=== PATIENT | female | born 1960 | race African-American/Black ===

== ENCOUNTER → 2017-07-06 | Outpatient (CLI) | payer SELFPAY ==
--- NOTE | 2017-07-06 16:42 | RADIOLOGY REPORT (SQ) ---
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 The route of agent administration: Intravenous. ADDITIONAL DRUGS AND DOSES: None. TECHNIQUE: Routine delayed images at 3 hours post radionuclide injection acquired of the bony skelet on including anterior and posterior whole-body projections and additional focused images as needed. LIMITATIONS: None. FINDINGS: BONES: Normal visualization without areas of photopenia or increased bony uptake of radiop harmaceutical. KIDNEYS: Symmetric excretion without obstruction. OTHER: No other significant finding. IMPRESSION: No significant skeletal abnormalities were identified. No evidence for bony metastatic disease. COMMENT: Quality measure 147: TECHNICAL DOCUMENTATION: JOB ID: [id number] [employer]- All Rights Reserved
== END ==
LOC: RAD 10:31
PROVIDERS: ATTEND Internal Medicine Hematology & Oncology
DX: C50.011 Malignant neoplasm of nipple and areola, right female breast (principal)
CPT/HCPCS: 78306; A9561; Q9969

== ENCOUNTER → 2017-07-11 | Outpatient (CLI) | payer SELFPAY ==
--- NOTE | 2017-07-11 10:48 | RADIOLOGY REPORT (SQ) ---
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 TECHNIQUE: CT scan of the chest performed using helical scanning technique with dynamic intravenous contrast injection. Images reviewed with lung, soft tissue and bone windows. Reconstructed coronal and sagittal MPR images reviewed. All images stored on PACS. All CT scanners at this facility use dose modulation, iterative reconstruction, and/or weight based d osing when appropriate to reduce radiation dose to as low as reasonably achievable (ALARA). [facility]: Dose Right [facility]: CareDose [facility]: Dose Right [facility]: Teradose 4D [facility]: [employer] CONTRAST TYPE AND DOSE: 100 cc Isovue 370- low osmolar. RENAL FUNCTION: Creatinine 1.0 RADIATION DOSE: . LIMITATIONS: None. FINDINGS: LUNGS AND PLEURA: A small calcified granuloma is seen the left lung posterolaterally on im age 44. HILAR AND MEDIASTINAL STRUCTURES: No identified masses or abnormal nodes. HEART AND VASCULAR STRUCTURES: No aneurysm or dissection. No central pulmonary emboli. No pericardi al effusion. HARDWARE: None in the chest. UPPER ABDOMEN: See separate report of the CT of the abdomen. THYROID AND OTHER SOFT TISSUES: No masses. No adenopathy. BONES: No significant finding. OTHER: There is marked thickening of scan in the anterior right breast. This is in the areolar area. IMPRESSION: Breast changes. No evidence of metastatic disease thorax. TECHNICAL DOCUMENTATION: JOB ID: [id number] Quality ID # 436: Final reports with documentation of one or more dose reduction techniques (e.g., Au tomated exposure control, adjustment of the mA and/or kV according to patient size, use of iterative reconstruction technique) 2010 [employer]- All Rights Reserved
--- NOTE | 2017-07-11 11:02 | RADIOLOGY REPORT (SQ) ---
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 TECHNIQUE: CT scan of the abdomen and pelvis performed using helical scanning technique with dynamic intravenous contrast injection. Oral contrast. Images reviewed with lung, soft tissue, and bone win dows. Reconstructed coronal and sagittal MPR images reviewed. Delayed images for evaluation of the ur inary system also acquired. All images stored on PACS. All CT scanners at this facility use dose modulation, iterative reconstruction, and/or weight based d osing when appropriate to reduce radiation dose to as low as reasonably achievable (ALARA). [facility]: Dose Right [facility]: CareDose [facility]: Dose Right [facility]: Teradose 4D [facility]: [employer] CONTRAST TYPE AND DOSE: contrast/concentration: Isovue 370.00 mg/ml; Total Contrast Delivered: 100.0 ml; Total Saline Delivered: 72.0 ml RENAL FUNCTION: Creatinine 1.0 RADIATION DOSE: CT Rad equipment meets quality standard of care and radiation dose reduction techniq ues were employed. CTDIvol: 9.5 - 19.7 mGy. DLP: 2283 mGy-cm.. LIMITATIONS: None. FINDINGS: LOWER CHEST: See separate report of the CT of the chest. LIVER: Normal size. No masses. No dilated ducts. SPLEEN: Normal size. No focal lesions. PANCREAS: No masses. No significant calcifications. No adjacent inflammation or peripancreatic fluid collections. Pancreatic duct not dilated. GALLBLADDER: There is a least 1 low-density gallstone suggestive of cholesterol stone. ADRENAL GLANDS: No significant masses or asymmetry. RIGHT KIDNEY AND URETER: No solid masses. No significant calcifications. No hydronephrosis or hyd roureter. LEFT KIDNEY AND URETER: No solid masses. No significant calcifications. No hydronephrosis or hydr oureter. AORTA AND VESSELS: No aneurysm. No dissection. Renal arteries, SMA, celiac without stenosis. RETROPERITONEUM: No retroperitoneal adenopathy, hemorrhage or masses. BOWEL AND PERITONEAL CAVITY: No masses or inflammatory changes. No free fluid or peritoneal masses. APPENDIX: Normal. PELVIS: There is an enlarged heterogeneous uterus. ABDOMINAL WALL: No masses. No hernias. BONES: No significant or acute findings. OTHER: No other significant finding. IMPRESSION: 1. Cholelithiasis as described. 2. There appear to be multiple uterine fibroids. 3. No abdominal or pelvic metastases are seen. TECHNICAL DOCUMENTATION: JOB ID: [id number] Quality ID # 436: Final reports with documentation of one or more dose reduction techniques (e.g., Au tomated exposure control, adjustment of the mA and/or kV according to patient size, use of iterative reconstruction technique) 2010 [employer]- All Rights Reserved
--- NOTE | 2017-07-11 15:05 | RADIOLOGY REPORT (SQ) ---
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 The route of agent administration: Intravenous TECHNIQUE: Following administration of the radionuclide, gated images of the heart are obtained in t hree projections. Left ventricular functional analysis performed. LIMITATIONS: None. FINDINGS: LEFT VENTRICULAR FUNCTION: EJECTION FRACTION: Left ventricular ejection fraction 62%. END-DIASTOLIC VOLUME: 105 mL. END-SYSTOLIC VOLUME: 55 mL. WALL MOTION: No focal wall motion abnormalities. OTHER: No other significant finding. IMPRESSION: Left ventricular ejection fraction estimated at 62% TECHNICAL DOCUMENTATION: JOB ID: [id number] [employer]- All Rights Reserved
== END ==
LOC: RAD 09:00
PROVIDERS: ATTEND Internal Medicine Hematology & Oncology
DX: C50.011 Malignant neoplasm of nipple and areola, right female breast (principal); R06.02 Shortness of breath; K80.20 Calculus of gallbladder without cholecystitis without obstruction
CPT/HCPCS: 82565; 78472; 71260; 74177; A9560; Q9969

== ENCOUNTER 2017-07-18 13:05 | Day surgery (SDC) | payer MEDICAID ==
[~2017-07-18 13:05] MED LIST: ACETAMINOPHEN 325 MG TABLET PO PRN; BUPIVACAINE HCL 0.5%-EPI 1:200000 INJ/PF 30 ML VIAL ONE; CEFAZOLIN 1 GM/D5W RTU 1 GM/50 ML RTUPB IV PRN
[2017-07-18 14:22] LABS: HEMATOCRIT 36.2 % (36.0-47.0); HEMOGLOBIN 12.1 g/dL (12.0-15.5); HGB HCT DIFFERENCE 0.1; MEAN CORPUSCULAR HEMOGLOBIN 25.7 pg (27.0-33.4); MEAN CORPUSCULAR HGB CONC 33.5 g/dL (32.0-36.0); MEAN CORPUSCULAR VOLUME 77 fl (80-97); RED BLOOD COUNT 4.71 10^6/uL (3.72-5.28); RED CELL DISTRIBUTION WIDTH 12.9 % (11.5-14.0); WHITE BLOOD COUNT 10.5 10^3/uL (4.0-10.5)
[2017-07-18] MEDS ORDERED: PROPOFOL INJ 200 MG/20 ML VIAL IV ONE (14:43)
[2017-07-18] MEDS ORDERED: MIDAZOLAM 2 MG/2 ML INJ ONE (14:43)
[2017-07-18] MEDS ORDERED: LIDOCAINE 2% INJ-PF (20 MG/ML) 10 ML AMPUL ONE (14:43)
[2017-07-18] MEDS ORDERED: FENTANYL CITRATE INJ/PF 100 MCG/2 ML AMPUL ONE (14:43)
[2017-07-18] MEDS ORDERED: MEPERIDINE HCL/PF INJ 25 MG/1 ML DISP.SYRIN IV PRN (15:40)
[2017-07-18] MEDS ORDERED: DIPHENHYDRAMINE HCL 50 MG/ML VIAL IV PRN (15:40)
[2017-07-18] MEDS ORDERED: PROMETHAZINE HCL INJ 25 MG/1 ML VIAL IV PRN (15:40)
[2017-07-18] MEDS ORDERED: ONDANSETRON HCL INJ/PF 4 MG/2 ML SDV IV PRN (15:40)
[2017-07-18] MEDS ORDERED: FENTANYL CITRATE INJ/PF 100 MCG/2 ML AMPUL IV PRN ×2 (15:40)
--- NOTE | 2017-07-18 16:23 | PDOC DISCHARGE SUMMARY ---
Discharge Summary (SDC) - Discharge Final Diagnosis: Port a Cath placed for right Breast Cancer Date of Surgery: 07/18/17 Discharge Date: 07/18/17 Condition: Stable Treatment or Instructions: Wound Care: Leave clear dressing and paper bandaids (steri strips) intact. You may remove the clear outer dressing (tegaderm) before chemo. Leave steri strips intact beneath. You may shower/get the area wet in 48 hours. Leave tegaderm and steri strips intact. Do not scrub area. Warm water/soap may wash over area, pat dry. Medication: You may take Toradol 10mg one pill every six hours as needed for pain. Follow up: Return to clinic in two weeks for wound evaluation. Call clinic if you experience unusual pain, swelling, bleeding, neck swelling. Call clinic with any questions or concerns. [facility]: [phone] Prescriptions: Ketorolac Tromethamine [Toradol 10 mg Tablet] 10 mg PO Q6HP PRN #20 tablet PRN Reason: Referrals: RHIANNON SCHMIDT MD [Primary Care Provider] - Discharge Diet: As Tolerated Discharge Activity: Walk Frequently Report the Following to Your Physician Immediately: Shortness of Breath, Increase in Pain, Fever over 101 Degrees, Swelling, Drainage-Foul Smelling
--- NOTE | 2017-07-18 16:27 | Operative Report ---
Operative Report DATE OF SURGERY: 07/18/17 PREOPERATIVE DIAGNOSIS: Locally advanced right breast carcinoma POSTOPERATIVE DIAGNOSIS: Same OPERATION: 1. Focused ultrasound of the left internal jugular vein. 2. Insertion of single-chamber Ldkxru-f-Pxpp left subclavian position. 3. Interpretation of intraoperative fluoroscopy SURGEON: MAXIMO BROGES 1ST BUILD TECHNICIAN: NOREEN OVALLES ANESTHESIA: LMAC TISSUE REMOVED OR ALTERED: None COMPLICATIONS: None ESTIMATED BLOOD LOSS: Scant INTRAOPERATIVE FINDINGS: See below PROCEDURE: Patient was taken to the main operating room [facility] she is placed in supine position arms tucked left neck and chest wall prepped and draped sterile fashion with Betadine Surgical plan and surgical timeout were conducted. Left neck scanned with the variable frequency linear transducer. Left internal jugular vein was in appropriate configuration and felt suitable for cannulation. Skin was anesthetized 1% plain lidocaine. Micro needle and wire threaded to the left internal jugular vein. Suitable site for placement of the port chamber was selected left subclavian position. Skin was anesthetized 1% plain lidocaine. Approximately 3 and half centimeter incision made with a 15 blade, subcutaneous pocket developed large enough to accommodate a single-chamber port. The catheter was then trimmed the appropriate length total between the 2 incisions attached to the port trimming the catheter at 25 cm. The plastic ring was secured onto the port. The port was tucked into the subcu clavicular pocket. The micro needle was switched over to a conventional 0.030 guidewire uneventfully. The 9 Syriac dilator introducer sheath was then threaded over the guidewire under direct visualization using fluoroscopy as a guide. The dilator and wire removed, catheter threaded into the strip away sheath and the strip away sheath removed uneventfully leaving the catheter in good position with the tip of the proximal superior vena cava. There was no kinking of the catheter was demonstrated by fluoroscopic imaging. The catheter was aspirated and flushed through the hub of the port. Wounds closed with 3-0 Vicryl benzoin Steri-Strips and Tegaderm applied. Patient taught procedure well taken recovery in stable condition. Portable chest x-ray pending at time dictation. The physician client account assistant, Ms. Gordon, provided assistance during this case by: ASSISTING retracting tissue, instillation of local anesthesia and closure of skin incisions.
--- NOTE | 2017-07-18 17:19 | RADIOLOGY REPORT (SQ) ---
EXAM DESCRIPTION: CHEST SINGLE VIEW; NO CHG FLUORO COMPLETED DATE/TIME: 07/18/2017 4:31 pm; 07/18/2017 4:32 pm REASON FOR STUDY: PORTACATH PLACEMENT C50.911 MALIGNANT NEOPLASM OF UNSP SITE OF RIGHT FEMALE FLORENTINO COMPARISON: CT chest 07/11/2017 FLUOROSCOPY TIME: 0.4 minutes 1 digital chest radiographic image saved to PACS. TECHNIQUE: Intra-operative images acquired during surgical procedure to evaluate progress. NUMBER OF IMAGES: 1 digital chest radiographic image LIMITATIONS: None. FINDINGS: Intra procedural imaging and fluoro during placement of a left-sided permanent central jacob e by the surgeons. Please see the operative report for further details IMPRESSION: Intra procedural imaging and fluoro COMMENT: Quality ID 145: Final reports for procedures using fluoroscopy that document radiation exp osure indices, or exposure time and number of fluorographic images (if radiation exposure indices are not available) Please consult full operative report of the attending physician for description of the procedure. TECHNICAL DOCUMENTATION: JOB ID: [id number] [employer]- All Rights Reserved
--- NOTE | 2017-07-18 17:21 | RADIOLOGY REPORT (SQ) ---
EXAM DESCRIPTION: CHEST SINGLE VIEW COMPLETED DATE/TIME: 07/18/2017 4:45 pm REASON FOR STUDY: Port placement COMPARISON: None. EXAM PARAMETERS: NUMBER OF VIEWS: One view. TECHNIQUE: Single frontal radiographic view of the chest acquired. RADIATION DOSE: NA LIMITATIONS: None. FINDINGS: LUNGS AND PLEURA: No opacities, masses or pneumothorax. No pleural effusion. MEDIASTINUM AND HILAR STRUCTURES: No masses. Contour normal. Benign calcified left paratracheal and left hilar lymph nodes likely related to granulomatous disease HEART AND VASCULAR STRUCTURES: Mild to moderate cardiomegaly BONES: No acute findings. HARDWARE: Left-sided permanent central line with the tip in the superior vena cava. OTHER: No other significant finding. IMPRESSION: New left permanent central line with the tip in the superior vena cava. No pneumothorax . TECHNICAL DOCUMENTATION: JOB ID: [id number] [employer]- All Rights Reserved
[2017-07-18 18:13] VITALS: BP 165/80
--- NOTE | 2017-07-18 18:32 | EKG REPORT ---
SEVERITY:- ABNORMAL ECG - SINUS RHYTHM LEFT BUNDLE BRANCH BLOCK : Confirmed by: Praveen Ramos MD 18-Jul-2017 18:31:54
== END 2017-07-18 18:10 | disposition home or self-care (01) ==
LOC: OROUT 13:05
PROVIDERS: ATTEND Surgery
PROC: 05HN33Z Insertion of Infusion Device into Left Internal Jugular Vein, Percutaneous Approach (ICD-10-PCS; principal; 2017-07-18 15:30)
DX: C50.911 Malignant neoplasm of unspecified site of right female breast (principal); I10 Essential (primary) hypertension; Z79.899 Other long term (current) drug therapy
CPT/HCPCS: 36561; 36415; 84132; 85027; 71010; 93005; 93010; C1752; C1788; J2250; J3490 ×2; J0690; J3010; J2704; J1642; 532

== ENCOUNTER 2017-07-20 07:58 | Outpatient (CLI) | payer MEDICAID ==
[2017-07-20] MEDS ORDERED: DOCETAXEL IV PRN (08:00)
[2017-07-20] MEDS ORDERED: NORMAL SALINE IV PRN ×3 (08:00)
[2017-07-20] MEDS ORDERED: DIPHENHYDRAMINE HCL 50 MG in NORMAL SALINE 50 ML IV PRN (08:00)
[2017-07-20] MEDS ORDERED: CARBOPLATIN 750 MG in NORMAL SALINE 250 ML IV PRN (08:00)
[2017-07-20] MEDS ORDERED: ONDANSETRON HCL/PF 16 MG, DEXAMETHASONE SOD PHOSPHATE 20 MG in NORMAL SALINE 50 ML IV PRN (08:00)
[2017-07-20] MEDS ORDERED: NORMAL SALINE 250 ML IV PRN (08:00)
[2017-07-20] MEDS ORDERED: FAMOTIDINE IV PRN (08:00)
[2017-07-20] MEDS ORDERED: PERTUZUMAB 840 MG in NORMAL SALINE 250 ML IV PRN (08:00)
[2017-07-20] MEDS ORDERED: TRASTUZUMAB IV PRN (08:00)
[2017-07-20 08:41] LABS: ABSOLUTE BASOPHILS # (AUTO) 0.1 10^3/uL (0.0-0.2); ABSOLUTE EOSINOPHILS # (AUTO) 0.2 10^3/uL (0.0-0.6); ABSOLUTE LYMPHOCYTES (AUTO) 2.4 10^3/uL (0.5-4.7); ABSOLUTE MONOCYTES (AUTO) 0.7 10^3/uL (0.1-1.4); ABSOLUTE NEUT (AUTO) 6.3 10^3/uL (1.7-8.2); BASOPHILS % (AUTO) 0.6 % (0-2); EOSINOPHILS % (AUTO) 1.9 % (0-6); HEMATOCRIT 36.5 % (36.0-47.0); HEMOGLOBIN 11.9 g/dL (12.0-15.5); LYMPHOCYTES % (AUTO) 24.5 % (13-45); MEAN CORPUSCULAR HGB CONC 32.6 g/dL (32.0-36.0); MEAN CORPUSCULAR VOLUME 77 fl (80-97); MONOCYTES % (AUTO) 6.9 % (3-13); PLATELET COUNT 431 10^3/uL (150-450); RED BLOOD COUNT 4.75 10^6/uL (3.72-5.28); RED CELL DISTRIBUTION WIDTH 13.2 % (11.5-14.0); SEGMENTED NEUTROPHILS % (AUTO) 66.1 % (42-78); TOTAL CELLS COUNTED % (AUTO) 100 %; WHITE BLOOD COUNT 9.6 10^3/uL (4.0-10.5)
[2017-07-20 13:20] VITALS: BP 128/68
== END 2017-07-20 17:09 | disposition home or self-care (01) ==
LOC: II 07:58 → 5TH 07:59 → II 17:09
PROVIDERS: ATTEND Internal Medicine Hematology & Oncology
PROC: 3E0430M Introduction of Antineoplastic, Monoclonal Antibody, into Central Vein, Percutaneous Approach (ICD-10-PCS; principal; 2017-07-20)
PROC: 3E04305 Introduction of Other Antineoplastic into Central Vein, Percutaneous Approach (ICD-10-PCS; 2017-07-20)
PROC: 3E043GC Introduction of Other Therapeutic Substance into Central Vein, Percutaneous Approach (ICD-10-PCS; 2017-07-20)
DX: Z51.11 Encounter for antineoplastic chemotherapy (principal); C50.011 Malignant neoplasm of nipple and areola, right female breast
CPT/HCPCS: 36415; 85025; 96413; 96415; 96367; 96375; J1200; J9045; J9171; J2405; J7050; S0028; J1100; J9306; J9355; 96417

== ENCOUNTER 2017-08-10 10:19 | Outpatient (CLI) | payer MEDICAID ==
[~2017-08-10 10:19] MED LIST changes: -ACETAMINOPHEN 325 MG TABLET PO PRN; -BUPIVACAINE HCL 0.5%-EPI 1:200000 INJ/PF 30 ML VIAL ONE; +CARBOPLATIN 750 MG in NORMAL SALINE 250 ML IV PRN; -CEFAZOLIN 1 GM/D5W RTU 1 GM/50 ML RTUPB IV PRN; +DIPHENHYDRAMINE HCL 50 MG in NORMAL SALINE 50 ML IV PRN; +DOCETAXEL IV PRN; +FAMOTIDINE IV PRN; +NORMAL SALINE 250 ML IV PRN; +NORMAL SALINE IV PRN; +ONDANSETRON HCL/PF 16 MG, DEXAMETHASONE SOD PHOSPHATE 20 MG in NORMAL SALINE 50 ML IV PRN; +PERTUZUMAB 420 MG in NORMAL SALINE 250 ML IV PRN; +TRASTUZUMAB IV PRN
[2017-08-10 10:47] VITALS: BP 136/72
== END 2017-08-10 16:49 | disposition home or self-care (01) ==
LOC: II 10:19 → 5TH 10:20 → II 16:49
PROVIDERS: ATTEND Internal Medicine Hematology & Oncology
PROC: 3E0430M Introduction of Antineoplastic, Monoclonal Antibody, into Central Vein, Percutaneous Approach (ICD-10-PCS; principal; 2017-08-10)
PROC: 3E04305 Introduction of Other Antineoplastic into Central Vein, Percutaneous Approach (ICD-10-PCS; 2017-08-10)
PROC: 3E043GC Introduction of Other Therapeutic Substance into Central Vein, Percutaneous Approach (ICD-10-PCS; 2017-08-10)
DX: Z51.11 Encounter for antineoplastic chemotherapy (principal); C50.011 Malignant neoplasm of nipple and areola, right female breast
CPT/HCPCS: 96413; 96415; 96367; 96375; J1200; J9045; J9171; J2405; J7050; S0028; J1100; J9306; J9355; 96417

== ENCOUNTER → 2017-10-08 | Outpatient (CLI) | payer MEDICAID ==
--- NOTE | 2017-10-08 14:17 | RADIOLOGY REPORT (SQ) ---
EXAM DESCRIPTION: NM MUGA REST COMPLETED DATE/TIME: 10/08/2017 11:54 am REASON FOR STUDY: Z08 ENCNTR FOR FOLLOW-UP EXAM AFTER TRTMT FOR MALIGNANT NEOPLASM C50.011 MA Z08 E NCNTR FOR FOLLOW-UP EXAM AFTER TRTMT FOR MALIGNANT NEOP C50.011 MALIGNANT NEOPLASM OF NIPPLE AND ARE MARYAM, RIGHT FEMAL COMPARISON: 07/11/2017. RADIONUCLIDE AND DOSE: 26.1 mCi technetium 99 M pertechnetate labeled red blood cells. The route of agent administration: Intravenous TECHNIQUE: Following administration of the radionuclide, gated images of the heart are obtained in t hree projections. Left ventricular functional analysis performed. LIMITATIONS: None. FINDINGS: LEFT VENTRICULAR FUNCTION: EJECTION FRACTION: 69%. END-DIASTOLIC VOLUME: 105 mL. END-SYSTOLIC VOLUME: 46 mL. WALL MOTION: No focal wall motion abnormalities. OTHER: No other significant finding. IMPRESSION: NORMAL CARDIAC MUGA STUDY. NORMAL LEFT VENTRICULAR FUNCTION WITH VALUES ABOVE. TECHNICAL DOCUMENTATION: JOB ID: [id number] [employer]- All Rights Reserved Reading location - IP/workstation name: [email or web address]
== END ==
LOC: RAD 10:42
PROVIDERS: ATTEND Physician Assistant Medical
DX: Z08 Encounter for follow-up examination after completed treatment for malignant neoplasm (principal); C50.011 Malignant neoplasm of nipple and areola, right female breast
CPT/HCPCS: 78472; A9560; Q9969

== ENCOUNTER 2017-10-26 21:28 | Emergency (ER) | payer MEDICAID ==
[2017-10-26] MEDS ORDERED: NORMAL SALINE 250 ML IV PRN (23:06)
--- NOTE | 2017-10-26 23:09 | ER Document Report ---
ED General - General Chief Complaint: Shortness Of Breath Stated Complaint: ABNORMAL LABS Time Seen by Provider: 10/26/17 22:59 Notes: Patient is a very pleasant 57-year-old female presents with some difficulty breathing. Patient was recently told that she was anemic with a hemoglobin 6.6. She was told if she is having symptoms were to come to the ER. Today she is having symptoms and therefore come to the ER. She has a history of breast cancer. She is on chemotherapy which is causing her to become anemic. She has had no blood in her stool. No black tarry stools. No vomiting. No bleeding from anywhere that she is aware of. No abdominal pain. No chest pain. She said she is short of breath more with exertion. She said since arriving here in shortness of breath is improved. She is not a smoker. No history of asthma. No recent fevers. No other complaints at this time. She says her hemoglobin has been downtrending over the last 12 weeks. She gets chemotherapy every 3 weeks. She says one time she was also short of breath due to low magnesium. Is followed by . TRAVEL OUTSIDE OF THE [place] IN LAST 30 DAYS: No - Related Data Allergies/Adverse Reactions: No Known Allergies Allergy (Verified 07/18/17 14:02) Past Medical History - Social History Smoking Status: Never Smoker Frequency of alcohol use: None Drug Abuse: None Family History: Reviewed & Not Pertinent - Past Medical History Cardiac Medical History: Reports: Hx Hypertension - ON MEDS Denies: Hx Coronary Artery Disease, Hx Heart Attack Pulmonary Medical History: Denies: Hx Asthma, Hx Bronchitis, Hx COPD, Hx Pneumonia Neurological Medical History: Denies: Hx Cerebrovascular Accident, Hx Seizures Renal/ Medical History: Denies: Hx Peritoneal Dialysis Musculoskeltal Medical History: Denies Hx Arthritis Past Surgical History: Reports: Hx Breast Surgery - benign tumors removed x3 from the left breast - Immunizations Hx Diphtheria, Pertussis, Tetanus Vaccination: No Review of Systems - Review of Systems Notes: My Normal Review Basic REVIEW OF SYSTEMS: CONSTITUTIONAL : Denies fever, chills, or sweats. Denies recent illness. EENT: Denies eye, ear, throat, or mouth pain or symptoms. Denies nasal or sinus congestion. CARDIOVASCULAR: Denies chest pain. RESPIRATORY: Some shortness of breath. GASTROINTESTINAL: Denies abdominal pain. Denies nausea, vomiting, or diarrhea. Denies constipation. Last BM: MUSCULOSKELETAL: Denies neck or back pain or joint pain or swelling. SKIN: Denies rash or skin lesions. HEMATOLOGIC : On chemotherapy NEUROLOGICAL: Denies altered mental status or loss of consciousness. Denies headache. Denies weakness or paralysis or loss of use of either side. Denies problems with gait or speech. Denies sensory or motor loss. ALL OTHER SYSTEMS REVIEWED AND NEGATIVE. Physical Exam - Vital signs Vitals: Temp Pulse Resp BP Pulse Ox 98.7 F 77 16 150/68 H 99 10/26/17 21:48 10/26/17 21:48 10/26/17 21:48 10/26/17 21:48 10/26/17 21:48 - Notes Notes: General Appearance: Well nourished, alert, cooperative, no acute distress, no obvious discomfort. Well-appearing. Vitals: reviewed, See vital signs table. Head: no swelling or tenderness to the head Eyes: PERRL, EOMI, Conjuctiva clear Lungs: No wheezing, No rales, No rhonci, No accessory muscle use, good air exchange bilaterally. Heart: Normal rate, Regular rythm, No murmur, no rub Abdomen: Normal BS, soft, No rigidity, No abdominal tenderness, No guarding, no rebound, no abdominal masses, no organomegaly Extremities: strength 5/5 in all extremities, good pulses in all extremities, no swelling or tenderness in the extremities, no edema. Skin: warm, dry, appropriate color, no rash Neuro: speech clear, oriented x 3, normal affect, responds appropriately to questions. Course - Re-evaluation Re-evalutation: 10/27/17 00:40 Patient's hemoglobin came back in the sevens. We will therefore just give her 1 unit of blood. I did call blood bank and make him aware that we just need 1 unit of blood thawed. 10/27/17 04:58 She looks and feels improved after receiving the blood. She was also significantly hypomagnesmic. I therefore gave her 2 g of magnesium. She also had some hypokalemia and therefore gave her potassium. She will be discharged home with prescriptions for supplemental potassium and magnesium. She is to follow-up with Dr. Grace on Sunday for reevaluation and recheck her labs. Patient encouraged to return to ER if she has difficulty breathing, fevers, or feels unwell. Patient agrees with plan will be discharged home. Dictation of this chart was performed using voice recognition software; therefore, there may be some unintended grammatical errors. - Vital Signs Vital signs: Temp Pulse Resp BP Pulse Ox 99.0 F 76 17 147/72 H 100 10/27/17 04:15 10/27/17 04:20 10/27/17 04:20 10/27/17 04:16 10/27/17 04:20 - Laboratory Result Diagrams: 10/26/17 23:00 10/26/17 23:00 Laboratory results interpreted by me: 10/26/17 10/26/17 10/26/17 23:00 23:00 23:40 WBC 13.6 H RBC 2.65 L Hgb 7.3 L Hct 22.3 L RDW 19.8 H Absolute Neutrophils 8.8 H Potassium 3.0 L* Chloride 108 H Est GFR ( Amer) 59 L Est GFR (Non-Af Amer) 49 L Glucose 120 H Magnesium 1.1 L* Urine Blood Ur Leukocyte Esterase Crossmatch See Detail 10/27/17 01:45 WBC RBC Hgb Hct RDW Absolute Neutrophils Potassium Chloride Est GFR ( Amer) Est GFR (Non-Af Amer) Glucose Magnesium Urine Blood SMALL H Ur Leukocyte Esterase SMALL H Crossmatch - EKG Interpretation by Me Additional EKG results interpreted by me: 10/27/17 00:41 EKG is reviewed and interpreted by me. EKG shows sinus rhythm with rate of 66 bpm. She does have a left bundle branch block which is unchanged comparison to her previous EKG from July 18, 2017. No concerning ST segment changes. MA interval and QTc intervals are within normal range. QRS duration is prolonged. Discharge - Discharge Clinical Impression: Hypokalemia, Hypomagnesemia Anemia Qualifiers: Anemia type: unspecified type Qualified Code(s): D64.9 - Anemia, unspecified Condition: Good Disposition: HOME, SELF-CARE Additional Instructions: Please follow up with Dr. Ortega on Sunday for reevaluation and recheck of your hemoglobin, potassium, and magnesium. Please return to the ER if you have worsening difficulty breathing, fevers, or feel unwell. Prescriptions: Magnesium Oxide 400 mg PO DAILY #15 tablet Potassium Chloride 10 ml PO DAILY #150 ml
[2017-10-26 23:16] LABS: VENOUS BLOOD BASE EXCESS -2.2 mmol/L; VENOUS BLOOD HCO3 23.3 mmol/L (20-32); VENOUS BLOOD PH 7.35 (7.30-7.42)
[2017-10-26 23:23] LABS: ABSOLUTE LYMPHOCYTES (AUTO) 3.4 10^3/uL (0.5-4.7); ABSOLUTE MONOCYTES (AUTO) 1.4 10^3/uL (0.1-1.4); ABSOLUTE NEUT (AUTO) 8.8 10^3/uL (1.7-8.2); BASOPHILS % (AUTO) 0.1 % (0-2); HEMATOCRIT 22.3 % (36.0-47.0); LYMPHOCYTES % (AUTO) 24.9 % (13-45); MEAN CORPUSCULAR HEMOGLOBIN 27.7 pg (27.0-33.4); MEAN CORPUSCULAR HGB CONC 32.9 g/dL (32.0-36.0); MEAN CORPUSCULAR VOLUME 84 fl (80-97); MONOCYTES % (AUTO) 10.3 % (3-13); PLATELET COUNT 185 10^3/uL (150-450); RED BLOOD COUNT 2.65 10^6/uL (3.72-5.28); RED CELL DISTRIBUTION WIDTH 19.8 % (11.5-14.0); SEGMENTED NEUTROPHILS % (AUTO) 64.7 % (42-78); TOTAL CELLS COUNTED % (AUTO) 100 %; WHITE BLOOD COUNT 13.6 10^3/uL (4.0-10.5)
[2017-10-26 23:25] LABS: HEMOGLOBIN 7.3 g/dL (12.0-15.5)
[2017-10-26 23:29] LABS: INTERNATIONAL RATION (INR) 1.01
[2017-10-26 23:32] LABS: ALANINE AMINOTRANSFERASE 34 U/L (9-52); ALBUMIN 4.1 g/dL (3.5-5.0); ALKALINE PHOSPHATASE 84 U/L (38-126); ANION GAP 13 (5-19); ASPARTATE AMINO TRANSFERASE 23 U/L (14-36); BILIRUBIN,DIRECT 0.1 mg/dL (0.0-0.4); BILIRUBIN,TOTAL 0.2 mg/dL (0.2-1.3); BLOOD UREA NITROGEN 15 mg/dL (7-20); CALCIUM 8.7 mg/dL (8.4-10.2); CARBON DIOXIDE 23 mmol/L (22-30); CHLORIDE 108 mmol/L (98-107); GLUCOSE 120 mg/dL (75-110); TOTAL PROTEIN 6.9 g/dL (6.3-8.2)
[2017-10-27 02:31] LABS: APPEARANCE,URINE CLEAR; COLOR,URINE YELLOW
[2017-10-27 02:32] LABS: BILIRUBIN,URINE NEGATIVE (NEGATIVE); GLUCOSE, URINE NEGATIVE (NEGATIVE); KETONES,URINE NEGATIVE (NEGATIVE); LEUKOCYTE ESTERASE,URINE SMALL (NEGATIVE); NITRITE,URINE NEGATIVE (NEGATIVE); PROTEIN,URINE NEGATIVE (NEGATIVE); URINE SPECIFIC GRAVITY 1.015; UROBILINOGEN,URINE NEGATIVE mg/dL (<2.0)
[2017-10-27] MEDS ORDERED: POTASSIUM CHLORIDE 10 MEQ TABLET.SA PO ONE (03:19)
--- NOTE | 2017-10-27 03:23 | RADIOLOGY REPORT (SQ) ---
EXAM DESCRIPTION: CHEST SINGLE VIEW CLINICAL HISTORY: 57 years Female, dyspnea COMPARISON: 12.20.17 NUMBER OF VIEWS/TECHNIQUE: 1/AP LIMITATIONS: None. FINDINGS: Normal lung volume, clear parenchyma, normal cardiac silhouette, and intact bony thorax. Left jugular miniport central line tip at the SVC. IMPRESSION: No acute cardiopulmonary findings.
[2017-10-27] MEDS ORDERED: MAGNESIUM SULFATE/D5W 1 GM/100 ML RTUPB IV SCH (03:30)
[2017-10-27 05:50] VITALS: BP 140/67
--- NOTE | 2017-10-27 10:20 | EKG REPORT ---
SEVERITY:- ABNORMAL ECG - SINUS RHYTHM LEFT BUNDLE BRANCH BLOCK : Confirmed by: Praveen Ramos MD 27-Oct-2017 10:19:40
== END 2017-10-27 05:55 | disposition home or self-care (01) ==
LOC: ER 21:28
DX: E87.6 Hypokalemia (principal); E83.42 Hypomagnesemia; D64.9 Anemia, unspecified; R06.02 Shortness of breath; Z85.3 Personal history of malignant neoplasm of breast; Z79.899 Other long term (current) drug therapy; I10 Essential (primary) hypertension
CPT/HCPCS: 93005; 36591; 99285; 86900; 86901; 36415; 87086; 36430; 86850; 83735; 85025; 85610; 80053; 81001; 86920; 82803; 71045; 93010; P9016; J3475

== ENCOUNTER 2017-12-19 06:52 | Day surgery (SDC) | payer MEDICAID ==
[2017-12-12 11:05] LABS: HEMATOCRIT 26.2 % (36.0-47.0); HEMOGLOBIN 8.6 g/dL (12.0-15.5); MEAN CORPUSCULAR HEMOGLOBIN 28.5 pg (27.0-33.4); MEAN CORPUSCULAR HGB CONC 32.8 g/dL (32.0-36.0); MEAN CORPUSCULAR VOLUME 87 fl (80-97); PLATELET COUNT 375 10^3/uL (150-450); RED BLOOD COUNT 3.02 10^6/uL (3.72-5.28); RED CELL DISTRIBUTION WIDTH 15.6 % (11.5-14.0); WHITE BLOOD COUNT 9.6 10^3/uL (4.0-10.5)
[2017-12-12 11:46] LABS: ANION GAP 10 (5-19); BLOOD UREA NITROGEN 21 mg/dL (7-20); CALCIUM 9.7 mg/dL (8.4-10.2); CARBON DIOXIDE 28 mmol/L (22-30); CHLORIDE 105 mmol/L (98-107); GLUCOSE 98 mg/dL (75-110); POTASSIUM 4.5 mmol/L (3.6-5.0); SODIUM 143.2 mmol/L (137-145)
[~2017-12-19 06:52] MED LIST changes: -CARBOPLATIN 750 MG in NORMAL SALINE 250 ML IV PRN; +CEFAZOLIN 1 GM/D5W RTU 1 GM/50 ML RTUPB IV PRN; -DIPHENHYDRAMINE HCL 50 MG in NORMAL SALINE 50 ML IV PRN; -DOCETAXEL IV PRN; -FAMOTIDINE IV PRN; +LACTATED RINGERS 1000 ML IV PRN; +LIDOCAINE 0.5% INJ-PF (5 MG/ML) 50 ML SDV SUBCUT PRN; +LIDOCAINE 1%/EPINEPHRINE INJ 20 ML VIAL ONE; +MICROFIBRILLAR COLLAGEN 1 GM PACK ONE; -NORMAL SALINE 250 ML IV PRN; -NORMAL SALINE IV PRN; -ONDANSETRON HCL/PF 16 MG, DEXAMETHASONE SOD PHOSPHATE 20 MG in NORMAL SALINE 50 ML IV PRN; -PERTUZUMAB 420 MG in NORMAL SALINE 250 ML IV PRN; -TRASTUZUMAB IV PRN
[2017-12-19 07:26] LABS: HEMOGLOBIN 9.2 g/dL (12.0-15.5); MEAN CORPUSCULAR HEMOGLOBIN 28.3 pg (27.0-33.4); MEAN CORPUSCULAR VOLUME 86 fl (80-97); PLATELET COUNT 405 10^3/uL (150-450); RED BLOOD COUNT 3.26 10^6/uL (3.72-5.28); RED CELL DISTRIBUTION WIDTH 15.6 % (11.5-14.0); WHITE BLOOD COUNT 8.9 10^3/uL (4.0-10.5)
[2017-12-19] MEDS ORDERED: DEXAMETHASONE SOD PHOSPHATE INJ 4 MG/1 ML VIAL ONE (08:49)
[2017-12-19] MEDS ORDERED: KETOROLAC TROMETHAMINE 60 MG/2 ML SDV ONE (08:49)
[2017-12-19] MEDS ORDERED: ONDANSETRON HCL INJ/PF 4 MG/2 ML SDV ONE (08:49)
[2017-12-19] MEDS ORDERED: SUCCINYLCHOLINE CHLORIDE INJ 200 MG/10 ML VIAL ONE (08:49)
[2017-12-19] MEDS ORDERED: FENTANYL CITRATE INJ/PF 250 MCG/5 ML AMPULE ONE (09:02)
[2017-12-19] MEDS ORDERED: PROPOFOL INJ 200 MG/20 ML VIAL IV ONE (09:02)
[2017-12-19] MEDS ORDERED: MIDAZOLAM 2 MG/2 ML INJ ONE (09:02)
[2017-12-19] MEDS ORDERED: ACETAMINOPHEN 100 ML IV ONE (09:03)
[2017-12-19] MEDS ORDERED: OXYCODONE-ACETAMINOPHEN 5-325 MG TABLET PO PRN ×2 (09:32)
[2017-12-19] MEDS ORDERED: FENTANYL CITRATE INJ/PF 100 MCG/2 ML AMPUL IV PRN ×3 (09:32)
[2017-12-19] MEDS ORDERED: PROMETHAZINE HCL INJ 25 MG/1 ML VIAL IV PRN ×2 (09:32)
[2017-12-19] MEDS ORDERED: MEPERIDINE HCL/PF INJ 25 MG/1 ML DISP.SYRIN IV PRN (09:32)
[2017-12-19] MEDS ORDERED: DIPHENHYDRAMINE HCL 50 MG/ML VIAL IV PRN (09:32)
--- NOTE | 2017-12-19 11:26 | Operative Report ---
Operative Report DATE OF SURGERY: 12/19/17 PREOPERATIVE DIAGNOSIS: 1. Locally advanced inflammatory breast carcinoma. 2. Status post neoadjuvant chemotherapy POSTOPERATIVE DIAGNOSIS: Same OPERATION: 1. Right modified radical mastectomy. 2. Drainage of right chest wall SURGEON: MAXIMO BORGES 1ST MACHINE PACKER: NOREEN OVALLES ANESTHESIA: GA TISSUE REMOVED OR ALTERED: Right breast marked accordingly; right axillary contents COMPLICATIONS: None ESTIMATED BLOOD LOSS: 1 50 cc INTRAOPERATIVE FINDINGS: See below PROCEDURE: The patient was seen in the preop holding area the right breast was marked. She was then taken to the main operating room where general anesthesia was induced. Right arm was abducted, the right breast and right chest wall exposed , prepped and draped sterile fashion. Surgical plan and surgical timeout conducted. The findings were significant for a previous history of inflammatory breast cancer, status post neoadjuvant chemotherapy. Patient had dramatic response in treatment, as evidenced by complete resolution of her skin and lymphatic disease clinically, as well as manual and radiographically assessed reduction in the size of her right axillary disease. She is now set up for right modified radical mastectomy. Markings were made on the skin with a generous excision of the superior skin flap to encompass the residual tumor at the 1 o'clock position, 7 -8 cm from the nipple. Superior skin flap was incised with a 10 blade, and the breast taken off of the skin flap down to the infraclavicular region, and the parasternal space. The inferior ellipse of the mastectomy incision was then made with a #10 blade, and then inferior flap and inferior mammary fold were elevated off of the breast. The breast was now taken completely off of the chest wall including the pectoralis major, pectoralis minor, and serratus anterior muscle. We opened up the lateral skin flap, and mobilized the lateral tail of Moncada along with the previously mobilized breast. The Bookwalter retractor system was established. Extenders were applied to exposed the right axilla. This is an excellent dissection. The right axillary contents were grossly normal. There were no obvious lymph nodes by visual or manual inspection. Furthermore, the scar tissue typically seen after neoadjuvant chemotherapy was not present. We completed a thorough, complete axillary dissection under excellent visualization. The axillary contents, specifically fatty tissue and lymph nodes were removed from the level 2 region under the pectoralis minor muscle, all along the large, bifurcating axillary vein, along the chest wall, with complete visualization sparing of the long serratus anterior nerve, to include preservation of the thoracodorsal complex including the thoracodorsal nerve. Again this was an excellent dissection and we are very gratified with the completeness of it. Axillary contents were taken off of the inferior aspect of the latissimus dorsi muscle, as well as the inferior and lateral aspect of the serratus anterior muscle. We worked in a circumferential fashion mobilizing all the fatty tissue. A discrete intercostal brachial nerve was not identified during the dissection the breast and talus bones were taken off and labeled with a long suture lateral position short suture superior position. The remaining axillary contents were removed in a somewhat piecemeal fashion. Once all the tissue was mobilized, the axilla was checked for bleeding and there were no mechanical bleeders. 2 drains were placed in the inferior skin flap, large 15 blade, and secured to skin with 2-0 Prolene suture. We mobilized the inferior skin flap to afford closure of the main incision without tension. The wound was closed in layers with a 20 and 3 0 Vicryl and Dermabond glue. Patient tolerated the procedure well, extubated, taken recovery in stable condition. The physician ophthalmic medical assistant, Ms. Gordon, provided assistance during this case by: Assisting with retracting tissue, instillation of local anesthesia and closure of skin incisions.
[2017-12-19] MEDS ORDERED: DEXTROSE 5%-LACTATED RINGERS 1,000 ML IV PRN (11:43)
[2017-12-19] MEDS ORDERED: KETOROLAC TROMETHAMINE INJ/PF 30 MG/1 ML SDV IV PRN (11:45)
[2017-12-19] MEDS ORDERED: ONDANSETRON HCL INJ/PF 4 MG/2 ML SDV IV PRN (11:45)
[2017-12-19] MEDS ORDERED: ACETAMINOPHEN INJ/PF 1000 MG/100 ML SDV IV SCH (12:00)
[2017-12-19] MEDS ORDERED: PROMETHAZINE HCL INJ 25 MG/1 ML VIAL ONE (12:04)
[2017-12-19] MEDS: ACETAMINOPHEN 100 ML IV SCH ×2 (16:25→22:09)
[2017-12-20] MEDS: ACETAMINOPHEN 100 ML IV SCH ×2 (03:53→08:47)
[2017-12-20 04:38] VITALS: BP 120/55
--- NOTE | 2017-12-20 07:45 | DISCHARGE SUMMARY E ---
Discharge Summary NAME: CHAD MYERS : 1960 AGE: 57Y ADMITTED: 12/19/2017 DISCHARGED: 12/20/2017 REASON FOR ADMISSION: Right breast carcinoma. SUMMARY OF HOSPITALIZATION: The patient is a 57-year-old -[place] female with a history of inflammatory breast cancer, locally invasive, who is brought through ambulatory service ready for right modified radical mastectomy. The patient underwent the procedure uneventfully by Dr. Kerr. She had 2 drains placed. Postoperatively, she had no complications. Her pain was adequately controlled. By the following morning, she was getting about well, tolerated diet, moving about satisfactorily and had serosanguineous drainage. She was felt to be ready for discharge home. FINAL DIAGNOSIS: Inflammatory breast carcinoma status post right modified radical mastectomy by Dr. Kerr. DISPOSITION: The patient will be discharged home in the care of family. Follow up with Dr. Kerr in approximately 1 week, be taught drain care. She will take Toradol p.r.n. pain. Prescription provided. DICTATING PHYSICIAN: MAXIMO KERR M.D. [id number] PHY#: [id number] ID: [id number] JOB#: [id number] ACCT: [id number] cc:MAXIMO KERR M.D. >
== END 2017-12-20 10:08 | disposition home or self-care (01) ==
LOC: OROUT 06:52 → 4S 12:51 → OROUT 12-20 10:08
PROVIDERS: ATTEND Surgery
DX: C50.911 Malignant neoplasm of unspecified site of right female breast (principal); I10 Essential (primary) hypertension; Z79.899 Other long term (current) drug therapy; Z01.818 Encounter for other preprocedural examination
CPT/HCPCS: 86900; 86901; 36415 ×2; 86850; 84132; 85027 ×2; 80048; 88342 ×2; 88305 ×2; 88309 ×2; 94799; 19307; J2250; J0690; J1100; J1885 ×2; J3010; J2550; J0330; J2405; J2704; J0131 ×2; 404; 88341; J3490

== ENCOUNTER 2018-01-09 18:40 | Emergency (ER) | payer MEDICAID ==
[2018-01-09 20:11] LABS: APPEARANCE,URINE CLOUDY; BILIRUBIN,URINE NEGATIVE (NEGATIVE); COLOR,URINE YELLOW; GLUCOSE, URINE NEGATIVE (NEGATIVE); KETONES,URINE NEGATIVE (NEGATIVE); LEUKOCYTE ESTERASE,URINE LARGE (NEGATIVE); NITRITE,URINE NEGATIVE (NEGATIVE); PROTEIN,URINE NEGATIVE (NEGATIVE)
[2018-01-09 20:13] LABS: ABSOLUTE LYMPHOCYTES (AUTO) 1.5 10^3/uL (0.5-4.7); ABSOLUTE MONOCYTES (AUTO) 0.6 10^3/uL (0.1-1.4); ABSOLUTE NEUT (AUTO) 10.1 10^3/uL (1.7-8.2); BASOPHILS % (AUTO) 0.3 % (0-2); EOSINOPHILS % (AUTO) 0.4 % (0-6); HEMATOCRIT 28.7 % (36.0-47.0); LYMPHOCYTES % (AUTO) 12.1 % (13-45); MEAN CORPUSCULAR HGB CONC 31.4 g/dL (32.0-36.0); MEAN CORPUSCULAR VOLUME 83 fl (80-97); MONOCYTES % (AUTO) 4.6 % (3-13); PLATELET COUNT 432 10^3/uL (150-450); RED BLOOD COUNT 3.46 10^6/uL (3.72-5.28); RED CELL DISTRIBUTION WIDTH 14.9 % (11.5-14.0); SEGMENTED NEUTROPHILS % (AUTO) 82.6 % (42-78); TOTAL CELLS COUNTED % (AUTO) 100 %; WHITE BLOOD COUNT 12.2 10^3/uL (4.0-10.5)
[2018-01-09 20:18] LABS: ALANINE AMINOTRANSFERASE 95 U/L (9-52); ALBUMIN 4.2 g/dL (3.5-5.0); ALKALINE PHOSPHATASE 170 U/L (38-126); ANION GAP 12 (5-19); ASPARTATE AMINO TRANSFERASE 237 U/L (14-36); BILIRUBIN,DIRECT 0.5 mg/dL (0.0-0.4); BILIRUBIN,TOTAL 0.6 mg/dL (0.2-1.3); BLOOD UREA NITROGEN 29 mg/dL (7-20); CARBON DIOXIDE 26 mmol/L (22-30); CHLORIDE 106 mmol/L (98-107); GLUCOSE 110 mg/dL (75-110); LIPASE 46.5 U/L (23-300); POTASSIUM 4.6 mmol/L (3.6-5.0); SODIUM 144.3 mmol/L (137-145); TOTAL PROTEIN 7.7 g/dL (6.3-8.2)
[2018-01-09] MEDS ORDERED: NORMAL SALINE 1000 ML 1,000 ML IV ONE (20:24)
--- NOTE | 2018-01-09 20:51 | ER Document Report ---
ED GI/ - General TRAVEL OUTSIDE OF THE [place] IN LAST 30 DAYS: No <MICHAEL FANG - Last Filed: 01/09/18 22:55> <KEREN MATUTE - Last Filed: 01/09/18 23:00> - General Chief Complaint: Abdominal Pain Stated Complaint: ABDOMINAL PAIN Time Seen by Provider: 01/09/18 20:02 Notes: 57 y.o female with a PMHx of breast cancer presents to the ED with abd pain. pt reports that her pain is diffuse and has since resolved. She reports eating a bowl of prunes yesterday and a burrito today for lunch which was before the abd pain. Pt denies eating anything since onset of pain. She denies any vomiting, diarrhea or any urinary sx. Pt denies any abd surgeries. (MICHAEL FANG) - Related Data Allergies/Adverse Reactions: No Known Allergies Allergy (Verified 01/09/18 18:41) Past Medical History - Social History Family History: Reviewed & Not Pertinent - Past Medical History Cardiac Medical History: Reports: Hx Hypertension - ON MEDS Denies: Hx Coronary Artery Disease, Hx Heart Attack Pulmonary Medical History: Denies: Hx Asthma, Hx Bronchitis, Hx COPD, Hx Pneumonia Neurological Medical History: Denies: Hx Cerebrovascular Accident, Hx Seizures Renal/ Medical History: Denies: Hx Peritoneal Dialysis Musculoskeltal Medical History: Denies Hx Arthritis Past Surgical History: Reports: Hx Breast Surgery - benign tumors removed x3 from the left breast - Immunizations Hx Diphtheria, Pertussis, Tetanus Vaccination: No <MICHAEL FANG - Last Filed: 01/09/18 22:55> - Social History Smoking Status: Never Smoker Cigarette use (# per day): No Chew tobacco use (# tins/day): No Smoking Education Provided: No Frequency of alcohol use: None Lives with: Family Family History: Reviewed & Not Pertinent <KEREN MATUTE - Last Filed: 01/09/18 23:00> Physical Exam <MICHAEL FANG - Last Filed: 01/09/18 22:55> - Respiratory Chest status: Other - Scars to right chest consistent with previous mastectomy <KEREN MATUTE - Last Filed: 01/09/18 23:00> - Vital signs Vitals: Temp Pulse Resp BP Pulse Ox 97.7 F 70 20 156/74 H 98 01/09/18 18:46 01/09/18 18:46 01/09/18 18:46 01/09/18 18:46 01/09/18 18:46 - Notes Notes: Physical Exam: General: Alert, appears well. HEENT: Normocephalic. Atraumatic. PERRL. Extraocular movements intact. Oropharynx clear. Neck: Supple. Non-tender. Respiratory: No respiratory distress. Clear and equal breath sounds bilaterally. Cardiovascular: Regular rate and rhythm. Abdominal: Normal Inspection. Non-tender. No distension. Normal Bowel Sounds. Back: Non-tender. No deformity or step off. Extremities: Moves all four extremities. Upper extremities: Normal inspection. Normal ROM. Lower extremities: Normal inspection. No edema. Normal ROM. Neurological: Normal cognition. AAOx3. Normal speech. Psychological: Normal affect. Normal Mood. Skin: Warm. Dry. Normal color. (MICHAEL FANG) Course - Laboratory Result Diagrams: 01/09/18 19:45 01/09/18 19:45 <MICHAEL FANG - Last Filed: 01/09/18 22:55> - Laboratory Result Diagrams: 01/09/18 19:45 01/09/18 19:45 <KEREN MATUTE - Last Filed: 01/09/18 23:00> - Re-evaluation Re-evalutation: 01/09/18 Patient is a 57-year-old female who came in for abdominal pain. Patient states that she is a bold print yesterday and also had a burrito today before the pain started. Patient states that it has gradually subsided. Denies any vomiting or diarrhea. She is no pain currently and would prefer to just go home. Denies any dysuria. Urine shows bacteria but also a lot of squamous cells. Patient has mild elevation of LFTs but this could be from a viral gastroenteritis. Patient was tolerating p.o. without any further abdominal pain or tenderness. She would like to go home and will return if she has any worsening or concerning symptoms. Stable for discharge. Understands and agrees with plan. Follow-up with PMD as needed. (KEREN MATUTE) - Vital Signs Vital signs: Temp Pulse Resp BP Pulse Ox 97.7 F 71 20 147/85 H 100 01/09/18 18:46 01/09/18 21:41 01/09/18 21:41 01/09/18 21:41 01/09/18 21:41 - Laboratory Laboratory results interpreted by me: 01/09/18 01/09/18 01/09/18 19:45 19:45 19:45 WBC 12.2 H RBC 3.46 L Hgb 9.0 L Hct 28.7 L MCH 26.0 L MCHC 31.4 L RDW 14.9 H Seg Neutrophils % 82.6 H Lymphocytes % 12.1 L Absolute Neutrophils 10.1 H BUN 29 H Creatinine 1.39 H Est GFR ( Amer) 47 L Est GFR (Non-Af Amer) 39 L Direct Bilirubin 0.5 H AST 237 H ALT 95 H Alkaline Phosphatase 170 H Urine Urobilinogen 4.0 H Ur Leukocyte Esterase LARGE H Discharge <MICHAEL FANG - Last Filed: 01/09/18 22:55> <KEREN MATUTE - Last Filed: 01/09/18 23:00> - Discharge Clinical Impression: Abdominal pain Qualifiers: Abdominal location: unspecified location Qualified Code(s): R10.9 - Unspecified abdominal pain Condition: Stable Disposition: HOME, SELF-CARE Instructions: Abdominal Pain ([facility]) Referrals: MICHELLE RESTREPO MD [Primary Care Provider] - Follow up in 3-5 days Scribe Attestation: 01/09/18 23:00 I personally performed the services described in the documentation, reviewed and edited the documentation which was dictated to the scribe in my presence, and it accurately records my words and actions. (KEREN MATUTE)
[2018-01-09 21:42] VITALS: BP 147/85
== END 2018-01-09 21:43 | disposition home or self-care (01) ==
LOC: ER 18:40
DX: R10.84 Generalized abdominal pain (principal); Z85.3 Personal history of malignant neoplasm of breast; I10 Essential (primary) hypertension; R79.89 Other specified abnormal findings of blood chemistry
CPT/HCPCS: 36415; 80053; 81001; 83690; 85025; 99284

== ENCOUNTER → 2018-01-14 | Outpatient (CLI) | payer MEDICAID ==
--- NOTE | 2018-01-18 17:45 | WOMENS IMAGING REPORT ---
EXAM DESCRIPTION: BREAST SPECIMEN COMPLETED DATE/TIME: 01/14/2018 1:31 pm REASON FOR STUDY: POST SURGICAL EXCISIOB,CLIP PLACEMENT N63.10 UNSPECIFIED LUMP IN THE RIGHT BREAST , UNSPECIFIED NISREEN R59.0 LOCALIZED ENLARGED LYMPH NODES COMPARISON: None. TECHNIQUE: Specimen radiograph from breast procedure performed in the operating room. LIMITATIONS: None. FINDINGS: Specimen radiograph from breast procedure performed in the operating room. There is a kurtz rgical clip in the cassette labeled 2. Please see procedure note for details and final pathology. IMPRESSION: Specimen radiograph. TECHNICAL DOCUMENTATION: JOB ID: [id number] Reading location - IP/workstation name: [email or web address]
== END ==
LOC: WI 02-04 14:33
PROVIDERS: ATTEND Surgery
DX: Z08 Encounter for follow-up examination after completed treatment for malignant neoplasm (principal); C50.919 Malignant neoplasm of unspecified site of unspecified female breast
CPT/HCPCS: 76098

== ENCOUNTER 2018-02-06 08:31 | Day surgery (SDC) | payer MEDICAID ==
[2018-02-04 09:22] LABS: HEMATOCRIT 31.4 % (36.0-47.0); HEMOGLOBIN 10.5 g/dL (12.0-15.5); MEAN CORPUSCULAR HEMOGLOBIN 26.7 pg (27.0-33.4); MEAN CORPUSCULAR HGB CONC 33.5 g/dL (32.0-36.0); MEAN CORPUSCULAR VOLUME 80 fl (80-97); PLATELET COUNT 309 10^3/uL (150-450); RED BLOOD COUNT 3.94 10^6/uL (3.72-5.28); RED CELL DISTRIBUTION WIDTH 14.4 % (11.5-14.0); WHITE BLOOD COUNT 9.6 10^3/uL (4.0-10.5)
[2018-02-04 09:54] LABS: ALANINE AMINOTRANSFERASE 21 U/L (9-52); ALBUMIN 4.1 g/dL (3.5-5.0); ALKALINE PHOSPHATASE 95 U/L (38-126); AMYLASE 91 U/L (30-110); ANION GAP 10 (5-19); ASPARTATE AMINO TRANSFERASE 22 U/L (14-36); BILIRUBIN,DIRECT 0.3 mg/dL (0.0-0.4); BILIRUBIN,TOTAL 0.6 mg/dL (0.2-1.3); BLOOD UREA NITROGEN 22 mg/dL (7-20); CALCIUM 9.6 mg/dL (8.4-10.2); CARBON DIOXIDE 27 mmol/L (22-30); CHLORIDE 106 mmol/L (98-107); GLUCOSE 95 mg/dL (75-110); POTASSIUM 4.5 mmol/L (3.6-5.0); SODIUM 143.3 mmol/L (137-145); TOTAL PROTEIN 7.5 g/dL (6.3-8.2)
--- NOTE | 2018-02-04 20:22 | EKG REPORT ---
SEVERITY:- ABNORMAL ECG - SINUS RHYTHM LEFT BUNDLE BRANCH BLOCK : Confirmed by: Jennifer Moore MD 04-Feb-2018 20:20:58
[~2018-02-06 08:31] MED LIST changes: +ACETAMINOPHEN 325 MG TABLET PO PRN; -LIDOCAINE 1%/EPINEPHRINE INJ 20 ML VIAL ONE; -MICROFIBRILLAR COLLAGEN 1 GM PACK ONE
[2018-02-06] MEDS ORDERED: ONDANSETRON 4 MG TAB.RAPDIS ONE (09:46)
[2018-02-06] MEDS ORDERED: ACETAMINOPHEN 1,000 MG/100 ML RTUPB IV ONE (10:09)
[2018-02-06] MEDS ORDERED: PROPOFOL INJ 200 MG/20 ML VIAL IV ONE (10:09)
[2018-02-06] MEDS ORDERED: FENTANYL CITRATE INJ/PF 100 MCG/2 ML AMPUL ONE (10:09)
[2018-02-06] MEDS ORDERED: MIDAZOLAM 2 MG/2 ML INJ ONE (10:10)
[2018-02-06] MEDS ORDERED: BUPIVACAINE HCL 0.25 % INJ/PF (2.5 MG/1 ML) 30 ML VIAL ONE (11:49)
[2018-02-06] MEDS ORDERED: SUCCINYLCHOLINE CHLORIDE INJ 200 MG/10 ML VIAL ONE (12:16)
[2018-02-06] MEDS ORDERED: DEXAMETHASONE SOD PHOSPHATE INJ 4 MG/1 ML VIAL ONE (12:16)
[2018-02-06] MEDS ORDERED: PHENYLEPHRINE HCL INJ/PF 10 MG/1 ML SDV ONE (12:16)
[2018-02-06] MEDS ORDERED: KETOROLAC TROMETHAMINE 60 MG/2 ML SDV ONE (12:16)
[2018-02-06] MEDS ORDERED: DIPHENHYDRAMINE HCL 50 MG/ML VIAL IV PRN (12:37)
[2018-02-06] MEDS ORDERED: PROMETHAZINE HCL INJ 25 MG/1 ML VIAL IV PRN (12:37)
[2018-02-06] MEDS ORDERED: FENTANYL CITRATE INJ/PF 100 MCG/2 ML AMPUL IV PRN ×3 (12:37)
--- NOTE | 2018-02-06 12:52 | Operative Report ---
Operative Report DATE OF SURGERY: 02/06/18 PREOPERATIVE DIAGNOSIS: Symptomatic cholelithiasis with acute cholecystitis POSTOPERATIVE DIAGNOSIS: Same OPERATION: Laparoscopic cholecystectomy SURGEON: MAXIMO WEISS ASSISTANT NEWS DIRECTOR: NOREEN OVALLES ANESTHESIA: GA TISSUE REMOVED OR ALTERED: 1 gallbladder with contents COMPLICATIONS: None ESTIMATED BLOOD LOSS: Scant INTRAOPERATIVE FINDINGS: See below PROCEDURE: After obtaining informed consent, the patient was taken to the operating room. General Anesthesia was induced; the arms were extended, and the abdomen was exposed, and prepped and draped in a sterile fashion. Instrumentation was set up for laparoscopic cholecystectomy. Surgical plan and surgical timeout were conducted. A vertical incision was made above the umbilicus, and a verres needle was inserted uneventfully into the peritoneal cavity. Pneumoperitoneum was established. The verres needle was removed and a 5 mm trocar was inserted and a 5 mm flexible laparoscope was inserted. Visualization of the peritoneal cavity confirmed safe uneventful entry. Under direct visualization 3 additional 5 mm ports were established, one in the subxiphoid position and second in the subcostal position. Visualization of the hepatobiliary anatomy revealed no anatomic variations. There were multiple adhesions between the gallbladder and the gastroduodenal region as well as the transverse colon which were taken down under direct visualization using hook cautery dissection. A grasper was placed on the fundus of the gallbladder and the gallbladder is elevated over the right surface of the liver; a second grasper was used to grasp the infundibulum of the gallbladder. The neck of the gallbladder and junction with the cystic duct was dissected out. The Cystic artery was in its usual location medial and cephalad to the cystic duct. The cystic artery was surrounded with a right angle clamp, clipped twice proximally and divided with laparoscopic scissors. There was a posterior branch of the cystic artery which was also clipped twice proximally and divided with electrocautery. We now opened the triangle of Calot by dividing the peritoneal reflection on both the medial and lateral sides of the cystic duct infundibular junction. The critical view was obtained. We now milked the cystic duct of any possible stones, clipped the cystic duct approximately 2 times once distally and divided with scissors. The gallbladder was now removed from the undersurface of the liver using hook cautery dissection. Graspers were repositioned and the gallbladder was removed uneventfully from the abdominal cavity through the super umbilical port site incision. The specimen was examined, then passed off to pathology for permanent analysis. We returned to the peritoneal cavity check for bleeding, and evidence of bile leak, and there was none. We Confirmed satisfactory placement of clips on cystic duct and cystic artery were secured . At this point we felt the operation was complete. The subcutaneous tissue was then anesthetized with quarter percent Marcaine Sponge and needle counts are correct. All ports removed under direct visualization pneumoperitoneum evacuated, and 5 mm port wounds closed with 3-0 Vicryl suture, benzoin and Steri-Strips. The patient was extubated, and taken to the recovery room in stable condition. The physician residential real estate assistant, Ms. Gordon, provided assistance during this case by: Assisting and port insertion, retracting tissue, instillation of local anesthesia and closure of skin incisions.
[2018-02-06] MEDS ORDERED: OXYCODONE-ACETAMINOPHEN 5-325 MG TABLET PO PRN (13:04)
--- NOTE | 2018-02-06 13:04 | Discharge Summary ---
Discharge Summary (SDC) - Discharge Final Diagnosis: cholecystitis with cholelithiasis Date of Surgery: 02/06/18 Discharge Date: 02/06/18 Condition: Stable Treatment or Instructions: [facility] [address] [place] [id number] Discharge Instructions: Laparoscopic Surgery 1. General Information: a. DO NOT DRIVE a car or operate dangerous machinery for 3-4 days. b. DO NOT consume alcohol, tranquilizers, sleeping medications or any non- prescribed medications for 24 hours unless approved by your doctor or as long as taking narcotic prescription medications. c. DO NOT make important decisions or sign any important papers for the first 24 hours after surgery. d. When discharged home the same day of surgery have a responsible person with you for the first night. 2. Activity Restrictions: 2 weeks. a. NO heavy lifting, straining abdominal muscles, bending over a lot, yard work, house work, or sports for [address] NOT [address] for 3-4 days c. It is fine to go for walks, up and down steps, ride in a car. d. Elevate your head when sleeping/resting. 3. Treatment: a. You may shower 24 hours after surgery, no baths or swimming for 2 weeks. Remove band-aids or dressings before shower but leave paper strips (steri-strips ) on the skin to fall off on their own. If still on at postoperative visit they will be removed then. b. Drainage of fluid or blood is not unusual from an incision. If occurs, you can clean with peroxide and cotton ball daily and cover with dry gauze until the wound seals. c. If a lot of bleeding occurs, you can hold pressure with a gauze or cloth over the site for 10 minutes and it will usually stop. If bleeding continues you will need to call for possible evaluation in office or emergency room. 4. Medications: a. __Toradol___ may be taken for pain as needed, one tablet every 6 hours. b. You should resume all normal medications unless a change is specified by your doctors. 5. Diet: Normal diet 6. The following may occur after laparoscopic surgery: a. Shoulder or upper back ache from retained gas that should resolve in 1-2 days b. Soreness and bruising at incision sites will resolve with time. c. Scrotal swelling (labia in women) and bruising is often seen after hernia surgery. d. Sore throat e. Fatigue may last days to weeks. f. Difficulty urinating may occur and may need to come into emergency room for urinary catheter placement. 7. Notify Physician If: a. Worsening or pain not improved with pain medication b. Persistent nausea and vomiting c. Fever above 101 d. Persistent bleeding or swelling at operative site e. Unable to urinate and uncomfortable bladder 6-8 hours after surgery 8..Follow Up Care: a. Schedule a follow up appointment with your doctor for 2 weeks. In the event of any postoperative problems or questions or you may call the office during business hours or the On-Call physician evenings and weekends at [facility]. [facility] I understand the instructions for my postoperative care as described above and a copy has been given to me. Patient/Significant Other Witness Date Prescriptions: Ketorolac Tromethamine [Toradol 10 mg Tablet] 10 mg PO Q6HP PRN #20 tablet PRN Reason: Referrals: MICHELLE RESTREPO MD [Primary Care Provider] - Discharge Diet: As Tolerated Discharge Activity: No Lifting Over 10 Pounds, No Lifting/Push/Pulling, Walk Frequently Report the Following to Your Physician Immediately: Nausea, Vomiting, Fever over 101 Degrees, Unusual Bleeding, Redness, Swelling, Warmth, Drainage-Foul Smelling
[2018-02-06 15:18] VITALS: BP 113/71
== END 2018-02-06 15:19 | disposition home or self-care (01) ==
LOC: OROUT 08:31
PROVIDERS: ATTEND Surgery
PROC: 0FT44ZZ Resection of Gallbladder, Percutaneous Endoscopic Approach (ICD-10-PCS; principal; 2018-02-06 10:30)
DX: K80.12 Calculus of gallbladder with acute and chronic cholecystitis without obstruction (principal); I10 Essential (primary) hypertension; C50.911 Malignant neoplasm of unspecified site of right female breast; E66.9 Obesity, unspecified; Z68.37 Body mass index [BMI] 37.0-37.9, adult
CPT/HCPCS: 93005; 36415; 82150; 85027; 80076; 80048; 88304 ×2; 93010; 47562; J2250; J0690; J1100; J1885; S0119; J3010; J2370; J0330; S0020; J2704; J0131; 790

== ENCOUNTER → 2018-02-28 | Outpatient (CLI) | payer MEDICAID ==
[2018-02-28 15:43] LABS: ABSOLUTE EOSINOPHILS # (AUTO) 0.1 10^3/uL (0.0-0.6); ABSOLUTE LYMPHOCYTES (AUTO) 2.7 10^3/uL (0.5-4.7); ABSOLUTE MONOCYTES (AUTO) 0.5 10^3/uL (0.1-1.4); BASOPHILS % (AUTO) 0.6 % (0-2); EOSINOPHILS % (AUTO) 0.8 % (0-6); HEMATOCRIT 30.8 % (36.0-47.0); LYMPHOCYTES % (AUTO) 36.8 % (13-45); MEAN CORPUSCULAR HEMOGLOBIN 25.4 pg (27.0-33.4); MEAN CORPUSCULAR HGB CONC 32.6 g/dL (32.0-36.0); MEAN CORPUSCULAR VOLUME 78 fl (80-97); MONOCYTES % (AUTO) 6.7 % (3-13); PLATELET COUNT 321 10^3/uL (150-450); RED BLOOD COUNT 3.95 10^6/uL (3.72-5.28); RED CELL DISTRIBUTION WIDTH 14.6 % (11.5-14.0); SEGMENTED NEUTROPHILS % (AUTO) 55.1 % (42-78); TOTAL CELLS COUNTED % (AUTO) 100 %; WHITE BLOOD COUNT 7.2 10^3/uL (4.0-10.5)
[2018-02-28 15:51] LABS: ALANINE AMINOTRANSFERASE 49 U/L (9-52); ALBUMIN 3.9 g/dL (3.5-5.0); ALKALINE PHOSPHATASE 69 U/L (38-126); ASPARTATE AMINO TRANSFERASE 38 U/L (14-36); BILIRUBIN,DIRECT 0.2 mg/dL (0.0-0.4); BILIRUBIN,TOTAL 0.5 mg/dL (0.2-1.3); TOTAL PROTEIN 6.9 g/dL (6.3-8.2)
== END ==
LOC: OD 14:15
PROVIDERS: ATTEND Radiology Radiation Oncology
DX: C50.111 Malignant neoplasm of central portion of right female breast (principal); C77.3 Secondary and unspecified malignant neoplasm of axilla and upper limb lymph nodes; Z17.0 Estrogen receptor positive status [ER+]; Z79.899 Other long term (current) drug therapy
CPT/HCPCS: 36415; 80076; 85025

== ENCOUNTER → 2018-05-08 | Outpatient (CLI) | payer MEDICAID ==
--- NOTE | 2018-05-08 11:08 | WOMENS IMAGING REPORT ---
EXAM DESCRIPTION: BONE DENSITY HIP/SPINE COMPLETED DATE/TIME: 05/08/2018 10:54 am REASON FOR STUDY: AGE RELATED OSTEOPOROSIS M81.0 M81.0 AGE-RELATED OSTEOPOROSIS W/O CURRENT PATHOLO GICAL FRAC Z08 ENCNTR FOR FOLLOW-UP EXAM AFTER TRTMT FOR MALIGNANT NEOP Z13.6 ENCOUNTER FOR SCREENI NG FOR CARDIOVASCULAR DISORDERS COMPARISON: None. TECHNIQUE: Dual-Energy X-ray Absorptiometry (DEXA) of the AP Spine and Hip. LIMITATIONS: None. FINDINGS: LUMBAR SPINE: The bone mineral density (BMD) measured from L1-L4 in the AP projection correlates with a T-score of -1.1, which is osteopenic as defined by the World Health Organization. HIP: The bone mineral density (BMD) measured in the left femoral neck at the hip correlates with a T-score of -0.7, which is normal as defined by the World Health Organization. IMPRESSION: 1. LUMBAR SPINE: Osteopenic 2. HIP: Normal COMMENT: The World Health Organization defines low BMD as follows: T-score: Normal: Greater than -1.0 Osteopenia: Between -1.0 and -2.5 Osteoporosis: Less than -2.5 without fractures Established osteoporosis: Less than -2.5 with fractures In general, you may wish to consider: Diagnosis Treatment Follow-up DEXA Normal BMD Prevention 2-3 years Osteopenia Prevention/Therapy 1-2 years Osteoporosis Therapy Yearly TECHNICAL DOCUMENTATION: JOB ID: [id number]- All Rights Reserved Reading location - IP/workstation name: [facility]
--- NOTE | 2018-05-08 15:52 | RADIOLOGY REPORT (SQ) ---
EXAM DESCRIPTION: NM MUGA REST COMPLETED DATE/TIME: 05/08/2018 3:37 pm REASON FOR STUDY: OSTEOPENIA, AROMATASE INHIBITOR;ENCNTR FOR FOLLOW- M81.0 AGE-RELATED OSTEOPOROSIS W/O CURRENT PATHOLOGICAL FRAC Z08 ENCNTR FOR FOLLOW-UP EXAM AFTER TRTMT FOR MALIGNANT NEOP Z13.6 E NCOUNTER FOR SCREENING FOR CARDIOVASCULAR DISORDERS COMPARISON: Previous 10/08/2017, 07/11/2017 RADIONUCLIDE AND DOSE: 26.7 mCi technetium 99m labeled red blood cells The route of agent administration: Intravenous TECHNIQUE: Following administration of the radionuclide, gated images of the heart are obtained in t hree projections. Left ventricular functional analysis performed. LIMITATIONS: None. FINDINGS: LEFT VENTRICULAR FUNCTION: EJECTION FRACTION: 80%. END-DIASTOLIC VOLUME: 86 mL. END-SYSTOLIC VOLUME: 23 mL. WALL MOTION: No focal wall motion abnormalities. OTHER: No other significant finding. IMPRESSION: Normal left ventricular ejection fraction estimated at 80% TECHNICAL DOCUMENTATION: JOB ID: [id number] [employer]- All Rights Reserved Reading location - IP/workstation name: [email or web address]
== END ==
LOC: WI 09:57
PROVIDERS: ATTEND Internal Medicine Hematology & Oncology
DX: Z13.6 Encounter for screening for cardiovascular disorders (principal); Z08 Encounter for follow-up examination after completed treatment for malignant neoplasm; M81.0 Age-related osteoporosis without current pathological fracture; Z79.811 Long term (current) use of aromatase inhibitors
CPT/HCPCS: 78472; 77080; A9560; Q9969

== ENCOUNTER → 2018-06-12 | Outpatient (CLI) | payer MEDICAID | LOC: WI 07:05 | PROVIDERS: ATTEND Internal Medicine Hematology & Oncology | DX: Z12.31 Encounter for screening mammogram for malignant neoplasm of breast (principal) ==

== ENCOUNTER → 2018-06-24 | Outpatient (CLI) | payer MEDICAID ==
--- NOTE | 2018-06-24 16:27 | WOMENS IMAGING REPORT ---
EXAM DESCRIPTION: LEFT DIAGNOSTIC MAMMO W/CAD COMPLETED DATE/TIME: 06/24/2018 10:38 am REASON FOR STUDY: NODULAR DENSITY R92.0 MAMMOGRAPHIC MICROCALCIFICATION FOUND ON DX IMAGING OF COMPARISON: Left breast mammograms and tomosynthesis 06/12/2018 Bilateral mammography 07/05/2017 TECHNIQUE: Cone compression magnification craniocaudal, 90 mediolateral and mediolateral oblique im ages of the breast recorded with digital acquisition. Left whole breast 90 mediolateral view and craniocaudad view LIMITATIONS: None. FINDINGS: BREAST: Left MASSES: Multiple stable left breast masses are present CALCIFICATIONS: No new or suspicious calcifications. ARCHITECTURAL DISTORTION: None. DEVELOPING DENSITY: None. ASYMMETRY: None noted. OTHER: No other significant findings. Read with the assistance of CAD. .[facility] - R2 Cenova Version 1.3 .[facility] - R2 Cenova Version 1.3 .[facility] Imaging - R2 Cenova Version 2.4 .[facility] [place] - R2 Cenova Version 2.4 .[facility] - R2 Centrex Radio Operator Version 9.2 IMPRESSION: No mammographic evidence for malignancy left breast BREAST DENSITY: c. The breasts are heterogeneously dense, which may obscure small masses. BIRAD: 2 Benign findings. RECOMMENDATION: RECOMMENDED FOLLOW UP: Please continue left-sided screening mammography/ tomosynthes is in May 2019 SPECIFIC INTERVENTION/IMAGING/CONSULTATION RECOMMENDED:No additional intervention/ imaging/consultati on needed at this time. COMMUNICATION:Patient notified by letter COMMENT: The patient has been notified of the results by letter per MQSA requirements. Additional no tification policies are in place for contacting patient with suspicious or incomplete findings. Quality ID #[id number]: The [employer] recommends an annual screening mammogram for women aged 40 years or over. This facility utilizes a reminder system to ensure that all patients receive reminder letters, and/or direct phone calls for appointments. This includes reminders for routine scr eening mammograms, diagnostic mammograms, or other Breast Imaging Interventions when appropriate. Th is patient will be placed in the appropriate reminder system. The [employer] (ACR) has developed recommendations for screening MRI of the breast s in certain patient populations, to be used in conjunction with mammography. Breast MRI surveillanc e may be appropriate for women with more than 20% lifetime risk of developing breast cancer as deter mined by genetic testing, significant family history of the disease, or history of mantle radiation f or Hodgkins Disease. ACR Practice Guidelines 2008. TECHNICAL DOCUMENTATION: FINDING NUMBER: (1) ASSESSMENT: (1) JOB ID: [id number] [employer]- All Rights Reserved Reading location - IP/workstation name: [email or web address]
== END ==
LOC: WI 10:05
PROVIDERS: ATTEND Internal Medicine Hematology & Oncology
DX: R92.0 Mammographic microcalcification found on diagnostic imaging of breast (principal)

== ENCOUNTER 2018-06-26 06:24 | Day surgery (SDC) | payer MEDICAID ==
[~2018-06-26 06:24] MED LIST changes: -ACETAMINOPHEN 325 MG TABLET PO PRN; -CEFAZOLIN 1 GM/D5W RTU 1 GM/50 ML RTUPB IV PRN; +KETOROLAC TROMETHAMINE 0.45% 4 DROP/0.4 ML DROPERETTE OD PRN; -LACTATED RINGERS 1000 ML IV PRN; -LIDOCAINE 0.5% INJ-PF (5 MG/ML) 50 ML SDV SUBCUT PRN
[2018-06-26] MEDS: CYCLOPENTOLATE 0.2%/PHENYLEPHRINE 1% OPH SOLN 2 ML OD PRN ×4 (06:49→07:09)
[2018-06-26] MEDS: BESIFLOXACIN HCL 0.6% OPH SUSP 5 ML BOTTLE OD PRN ×3 (06:49→07:46)
[2018-06-26] MEDS: TROPICAMIDE 1% OPH SOLN 3 ML OD PRN ×4 (06:49→07:09)
[2018-06-26] MEDS: TETRACAINE HCL 0.5% OPH SOLN 0.6 ML DROPERETTE OD PRN ×3 (06:50→07:32)
[2018-06-26] MEDS ORDERED: TOBRAMYCIN SULFATE/DEXAMETH OPH OINTMENT 3.5 GM ONE (07:12)
[2018-06-26] MEDS ORDERED: LIDOCAINE 1% INJ-PF (10 MG/ML) 30 ML SDV ONE (07:12)
[2018-06-26] MEDS ORDERED: EPINEPHRINE INJ/PF 1 MG/1 ML AMPULE ONE (07:12)
[2018-06-26] MEDS ORDERED: CHONDR SU A NA/HYALUR INTRAOC KIT (SURGICARE) ONE (07:12)
[2018-06-26] MEDS ORDERED: FENTANYL CITRATE INJ/PF 100 MCG/2 ML AMPUL ONE (07:17)
[2018-06-26] MEDS ORDERED: MIDAZOLAM 2 MG/2 ML INJ ONE (07:17)
== END 2018-06-26 08:33 | disposition home or self-care (01) ==
LOC: SC 06:24
PROVIDERS: ATTEND Ophthalmology
DX: H25.11 Age-related nuclear cataract, right eye (principal); I10 Essential (primary) hypertension; Z79.899 Other long term (current) drug therapy; Z85.3 Personal history of malignant neoplasm of breast
CPT/HCPCS: 66984; V2630; J2250; J3490 ×5; J0171; J3010; 142

== ENCOUNTER 2018-07-10 06:35 | Day surgery (SDC) | payer MEDICAID ==
[~2018-07-10 06:35] MED LIST changes: -KETOROLAC TROMETHAMINE 0.45% 4 DROP/0.4 ML DROPERETTE OD PRN; +KETOROLAC TROMETHAMINE 0.45% 4 DROP/0.4 ML DROPERETTE OS PRN
[2018-07-10] MEDS: TROPICAMIDE 1% OPH SOLN 3 ML OS PRN ×3 (06:47→07:14)
[2018-07-10] MEDS: CYCLOPENTOLATE 0.2%/PHENYLEPHRINE 1% OPH SOLN 2 ML OS PRN ×3 (06:47→07:14)
[2018-07-10] MEDS: BESIFLOXACIN HCL 0.6% OPH SUSP 5 ML BOTTLE OS PRN ×4 (06:48→07:47)
[2018-07-10] MEDS: TETRACAINE HCL 0.5% OPH SOLN 0.6 ML DROPERETTE OS PRN ×4 (06:49→07:31)
[2018-07-10] MEDS ORDERED: MIDAZOLAM HCL SYRUP 10 MG/5 ML UDC ONE (06:50)
[2018-07-10] MEDS ORDERED: MIDAZOLAM 2 MG/2 ML INJ ONE (06:53)
[2018-07-10] MEDS ORDERED: LIDOCAINE 1% INJ-PF (10 MG/ML) 30 ML SDV ONE (07:09)
[2018-07-10] MEDS: CHONDR SU A NA/HYALUR INTRAOC KIT (SURGICARE) ONE ×2 (07:19→07:37)
[2018-07-10] MEDS ORDERED: LIDOCAINE 1%/PHENYLEPHRINE 1.5% 1 ML VIAL ONE (07:30)
[2018-07-10] MEDS: EPINEPHRINE INJ/PF 1 MG/1 ML AMPULE ONE ×2 (07:37)
[2018-07-10] MEDS: TOBRAMYCIN SULFATE/DEXAMETH OPH OINTMENT 3.5 GM ONE ×2 (07:39→07:47)
== END 2018-07-10 08:25 | disposition home or self-care (01) ==
LOC: SC 06:35
PROVIDERS: ATTEND Ophthalmology
DX: H25.12 Age-related nuclear cataract, left eye (principal); Z98.41 Cataract extraction status, right eye; I10 Essential (primary) hypertension; Z79.899 Other long term (current) drug therapy; Z85.3 Personal history of malignant neoplasm of breast
CPT/HCPCS: 66984; V2630; J2250; J3490 ×4; J0171; J2370; 142

== ENCOUNTER → 2018-08-07 | Outpatient (CLI) | payer MEDICAID ==
--- NOTE | 2018-08-07 14:39 | RADIOLOGY REPORT (SQ) ---
EXAM DESCRIPTION: NM MUGA REST COMPLETED DATE/TIME: 08/07/2018 12:54 pm REASON FOR STUDY: M81.0 AGE-RELATED OSTEOPOROSIS WITHOUT CURRENT PATHOLOGICAL FRACTURE M81.0 AGE-RE LATED OSTEOPOROSIS W/O CURRENT PATHOLOGICAL FRAC COMPARISON: None. RADIONUCLIDE AND DOSE: 26.5 mCi technetium 99m labeled red blood cells The route of agent administration: Intravenous TECHNIQUE: Following administration of the radionuclide, gated images of the heart are obtained in t hree projections. Left ventricular functional analysis performed. LIMITATIONS: None. FINDINGS: LEFT VENTRICULAR FUNCTION: EJECTION FRACTION: 86%. END-DIASTOLIC VOLUME: 74 mL. END-SYSTOLIC VOLUME: 14 mL. WALL MOTION: No focal wall motion abnormalities. OTHER: No other significant finding. IMPRESSION: NORMAL CARDIAC MUGA STUDY. NORMAL LEFT VENTRICULAR FUNCTION WITH VALUES ABOVE. TECHNICAL DOCUMENTATION: JOB ID: [id number] [employer]- All Rights Reserved Reading location - IP/workstation name: [email or web address]
== END ==
LOC: RAD 11:23
PROVIDERS: ATTEND Internal Medicine Hematology & Oncology
DX: M81.0 Age-related osteoporosis without current pathological fracture (principal); Z13.6 Encounter for screening for cardiovascular disorders
CPT/HCPCS: 78472; A9560; Q9969

== ENCOUNTER → 2018-10-31 | Outpatient (CLI) | payer MEDICAID ==
--- NOTE | 2018-10-31 12:54 | RADIOLOGY REPORT (SQ) ---
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 Left ventricular functional analysis performed. LIMITATIONS: None. FINDINGS: LEFT VENTRICULAR FUNCTION: EJECTION FRACTION: 79%. END-DIASTOLIC VOLUME: 78 mL. END-SYSTOLIC VOLUME: 19 mL. WALL MOTION: No focal wall motion abnormalities. OTHER: No other significant finding. IMPRESSION: Normal left ventricular ejection fraction estimated above 70%. TECHNICAL DOCUMENTATION: JOB ID: [id number] [employer]- All Rights Reserved Reading location - IP/workstation name: [email or web address]
== END ==
LOC: RAD 10:20
PROVIDERS: ATTEND Internal Medicine
DX: Z51.11 Encounter for antineoplastic chemotherapy (principal); C50.011 Malignant neoplasm of nipple and areola, right female breast
CPT/HCPCS: 78472; A9560; Q9969

== ENCOUNTER 2019-01-22 14:37 | Inpatient (IN) | payer MEDICAID ==
[2019-01-22] MEDS ORDERED: ACETAMINOPHEN 325 MG TABLET PO ONE (15:27)
--- NOTE | 2019-01-22 15:28 | ER Document Report ---
ED Medical Screen (RME) - General Chief Complaint: Dizziness Stated Complaint: LIGHTHEADED Time Seen by Provider: 01/22/19 15:19 Primary Care Provider: EDDIE THOMAS MD [Primary Care Provider] - Follow up as needed Mode of Arrival: Wheelchair Information source: Patient Notes: Patient presents with concern about sepsis and right arm cellulitis. Patient has a history of breast cancer although has not been on any recent chemotherapy. Dr. Thomas saw patient and sent her here today. Dr. Thomasm and suspects that patient will likely need admission and recommended starting cefepime antibiotics. Does not want her to be on any Zosyn. At this time we are awaiting her renal function tests prior to starting antibiotics. Patient states symptoms started over the past 2 days. Patient reports fever of 102.7. Patient complains of generalized weakness. I have greeted and performed a rapid initial assessment of this patient. A comprehensive ED assessment and evaluation of the patient, analysis of test results and completion of the medical decision making process will be conducted by additional ED providers. TRAVEL OUTSIDE OF THE [place] IN LAST 30 DAYS: No - Related Data Allergies/Adverse Reactions: No Known Allergies Allergy (Verified 01/22/19 15:03) Past Medical History - Social History Frequency of alcohol use: None Drug Abuse: None - Past Medical History Cardiac Medical History: Reports: Hx Hypertension - medicated Denies: Hx Coronary Artery Disease, Hx Heart Attack Pulmonary Medical History: Denies: Hx Asthma, Hx Bronchitis, Hx COPD, Hx Pneumonia Neurological Medical History: Denies: Hx Cerebrovascular Accident, Hx Seizures Renal/ Medical History: Denies: Hx Peritoneal Dialysis GI Medical History: Denies: Hx Hepatitis, Hx Hiatal Hernia, Hx Ulcer Musculoskeltal Medical History: Denies Hx Arthritis Infectious Medical History: Denies: Hx Hepatitis Past Surgical History: Reports: Hx Breast Surgery - benign tumors removed x3 from the left breast, Hx Cholecystectomy, Hx Mastectomy - RIGHT. Denies: Hx Hysterectomy, Hx Open Heart Surgery, Hx Pacemaker - Immunizations Hx Diphtheria, Pertussis, Tetanus Vaccination: Yes - ABOUT AT 10 YEARS History of Influenza Vaccine for 04/2017 - 09/2017 Season: No Physical Exam - Vital signs Vitals: Temp Pulse Resp BP Pulse Ox 100.7 F H 104 H 20 130/71 H 96 01/22/19 15:14 01/22/19 15:14 01/22/19 15:14 01/22/19 15:14 01/22/19 15:14 - General Notes: Right arm erythematous tender and swollen extending to chest wall area Course - Vital Signs Vital signs: Temp Pulse Resp BP Pulse Ox 100.7 F H 104 H 20 130/71 H 96 01/22/19 15:14 01/22/19 15:14 01/22/19 15:14 01/22/19 15:14 01/22/19 15:14 Doctor's Discharge - Discharge Referrals: EDDIE THOMAS MD [Primary Care Provider] - Follow up as needed
[2019-01-22] MEDS ORDERED: NORMAL SALINE 1000 ML 3,000 ML IV ONE (16:28)
--- NOTE | 2019-01-22 16:28 | RADIOLOGY REPORT (SQ) ---
EXAM DESCRIPTION: CHEST SINGLE VIEW COMPLETED DATE/TIME: 01/22/2019 4:15 pm REASON FOR STUDY: fever COMPARISON: None. EXAM PARAMETERS: NUMBER OF VIEWS: One view. TECHNIQUE: Single frontal radiographic view of the chest acquired. RADIATION DOSE: NA LIMITATIONS: None. FINDINGS: LUNGS AND PLEURA: No opacities, masses or pneumothorax. No pleural effusion. MEDIASTINUM AND HILAR STRUCTURES: No masses. Contour normal. HEART AND VASCULAR STRUCTURES: Heart normal in size. Normal vasculature. BONES: No acute findings. HARDWARE: Vascular port. Clips in the right axilla. OTHER: Right mastectomy. No other significant finding. IMPRESSION: NO ACUTE RADIOGRAPHIC FINDING IN THE CHEST. TECHNICAL DOCUMENTATION: JOB ID: [id number] [employer]- All Rights Reserved Reading location - IP/workstation name: [email or web address]
[2019-01-22] MEDS ORDERED: PIPERACILLIN/TAZOBACTAM 3.375 GM VIAL IV ONE (16:30)
[2019-01-22] MEDS ORDERED: VANCOMYCIN HCL INJ 1000 MG VIAL IV ONE ×2 (16:30→16:43)
[2019-01-22 16:58] LABS: ABSOLUTE LYMPHOCYTES (AUTO) 1.1 10^3/uL (0.5-4.7); ABSOLUTE MONOCYTES (AUTO) 0.5 10^3/uL (0.1-1.4); ABSOLUTE NEUT (AUTO) 15.3 10^3/uL (1.7-8.2); BASOPHILS % (AUTO) 0.1 % (0-2); HEMATOCRIT 30.3 % (36.0-47.0); HEMOGLOBIN 9.8 g/dL (12.0-15.5); LYMPHOCYTES % (AUTO) 6.3 % (13-45); MEAN CORPUSCULAR HEMOGLOBIN 24.7 pg (27.0-33.4); MEAN CORPUSCULAR HGB CONC 32.3 g/dL (32.0-36.0); MEAN CORPUSCULAR VOLUME 76 fl (80-97); MONOCYTES % (AUTO) 2.9 % (3-13); PLATELET COUNT 261 10^3/uL (150-450); RED BLOOD COUNT 3.97 10^6/uL (3.72-5.28); SEGMENTED NEUTROPHILS % (AUTO) 90.7 % (42-78); TOTAL CELLS COUNTED % (AUTO) 100 %; WHITE BLOOD COUNT 16.9 10^3/uL (4.0-10.5)
--- NOTE | 2019-01-22 17:03 | ER Document Report ---
ED General - General Chief Complaint: Dizziness Stated Complaint: LIGHTHEADED Time Seen by Provider: 01/22/19 15:19 Mode of Arrival: Wheelchair TRAVEL OUTSIDE OF THE [place] IN LAST 30 DAYS: No - HPI Notes: 58-year-old female with history of breast cancer, mastectomy, right arm lymp hedema to the emergency department from her oncologist's office with complaints of fever, right arm redness, swelling, hot to the touch that has been getting worse for the past 3 days. States she was seen by Dr. Aranda today and was told to come to the ER for further evaluation, IV Abx, and possible admission. States that today she noticed the redness from her arm has been streaking down onto her abdomen. States the highest fever she is seen is 102. Denies history of clot in the extremities. Currently in remission for her breast cancer however has been taking maintenance chemo and her last dose was 1 week ago. Denies chest pain, shortness of breath, nausea, vomiting, abdominal pain, urinary complaints. - Related Data Allergies/Adverse Reactions: No Known Allergies Allergy (Verified 01/22/19 15:03) Past Medical History - General Information source: Patient, Relative - Social History Smoking Status: Never Smoker Frequency of alcohol use: None Drug Abuse: None Lives with: Spouse/Significant other Family History: Reviewed & Not Pertinent Patient has suicidal ideation: No Patient has homicidal ideation: No - Past Medical History Cardiac Medical History: Reports: Hx Hypertension - medicated Denies: Hx Coronary Artery Disease, Hx Heart Attack Pulmonary Medical History: Denies: Hx Asthma, Hx Bronchitis, Hx COPD, Hx Pneumonia Neurological Medical History: Denies: Hx Cerebrovascular Accident, Hx Seizures Renal/ Medical History: Denies: Hx Peritoneal Dialysis GI Medical History: Denies: Hx Hepatitis, Hx Hiatal Hernia, Hx Ulcer Musculoskeletal Medical History: Denies Hx Arthritis Infectious Medical History: Denies: Hx Hepatitis Past Surgical History: Reports: Hx Breast Surgery - benign tumors removed x3 from the left breast, Hx Cholecystectomy, Hx Mastectomy - RIGHT. Denies: Hx Hysterectomy, Hx Open Heart Surgery, Hx Pacemaker - Immunizations Hx Diphtheria, Pertussis, Tetanus Vaccination: Yes - ABOUT AT 10 YEARS Review of Systems - Review of Systems Constitutional: Chills, Fever, Weakness EENT: No symptoms reported Cardiovascular: denies: Chest pain, Palpitations, Dizziness, Lightheaded Respiratory: denies: Cough, Short of breath Gastrointestinal: denies: Abdominal pain, Diarrhea, Nausea, Vomiting Musculoskeletal: Joint swelling - Right arm swelling Skin: Rash - Right arm redness and warmth to the touch Hematologic/Lymphatic: Other - Lymphedema to the right arm Neurological/Psychological: No symptoms reported -: Yes All other systems reviewed and negative Physical Exam - Vital signs Vitals: Temp Pulse Resp BP Pulse Ox 100.7 F H 104 H 20 130/71 H 96 01/22/19 15:14 01/22/19 15:14 01/22/19 15:14 01/22/19 15:14 01/22/19 15:14 Interpretation: Tachycardic, Febrile - General General appearance: Appears well, Alert - HEENT Head: Normocephalic, Atraumatic Eyes: Normal Pupils: PERRL - Respiratory Respiratory status: No respiratory distress Chest status: Nontender Breath sounds: Normal Chest palpation: Normal - Cardiovascular Rhythm: Regular Heart sounds: Normal auscultation Murmur: No - Abdominal Inspection: Other - Noted expanding cellulitic process to the upper abdomen, there is erythema and skin is hot to the touch Distension: No distension Bowel sounds: Normal Tenderness: Nontender - Extremities General upper extremity: Edema, Normal ROM, Normal strength Arm: Tender, Other - To the right upper arm at the level of the elbow going up into the shoulder, to the axilla, onto the chest wall there is erythema, edema, and the skin is hot to touch. No blistering or sloughing of the skin. There is no subcu emphysema or crepitus. The erythema extends onto the back as well. Forearm: Normal, Nontender Wrist: Normal, Nontender Hand: Normal, Nontender - Skin Skin Temperature: Hot Skin Moisture: Dry Skin Color: Erythema - See extremity for further discussion of right upper extremity cellulitic process that expands onto the chest wall and upper abdomen and to the back. There is a port to the left upper chest that does not have erythema around it. Course - Re-evaluation Re-evalutation: 01/22/19 17:28 Patient is doing well. Antibiotics and IV fluids are running. She has been marked with body marker to monitor the cellulitis. It has not spread out of the borders that have been marked. We will continue to monitor very closely. - Vital Signs Vital signs: Temp Pulse Resp BP Pulse Ox 98.5 F 104 H 15 121/57 L 99 01/22/19 19:36 01/22/19 15:14 01/22/19 18:14 01/22/19 18:14 01/22/19 18:14 - Laboratory Result Diagrams: 01/22/19 16:30 01/22/19 16:30 Laboratory results interpreted by me: 01/22/19 01/22/19 01/22/19 16:13 16:30 16:30 WBC 16.9 H Hgb 9.8 L Hct 30.3 L MCV 76 L MCH 24.7 L Seg Neutrophils % 90.7 H Lymphocytes % 6.3 L Monocytes % 2.9 L Absolute Neutrophils 15.3 H PT Sodium 130.9 L Potassium 3.2 L Chloride 94 L BUN 31 H Creatinine 1.72 H Est GFR ( Amer) 37 L Est GFR (Non-Af Amer) 30 L Glucose 143 H POC Glucose 154 H Total Bilirubin 1.4 H Direct Bilirubin 0.6 H AST 39 H 01/22/19 16:30 WBC Hgb Hct MCV MCH Seg Neutrophils % Lymphocytes % Monocytes % Absolute Neutrophils PT 16.5 H Sodium Potassium Chloride BUN Creatinine Est GFR ( Amer) Est GFR (Non-Af Amer) Glucose POC Glucose Total Bilirubin Direct Bilirubin AST - Diagnostic Test Radiology reviewed: Image reviewed, Reports reviewed - EKG Interpretation by Me EKG shows normal: Sinus rhythm Rate: Normal Rhythm: NSR Nickerson/QRS: LBBB When compared to previous EKG there are: No significant change - no STEMI - Transfer of Care Notes: 01/22/19 16:[address] Palomares, ER attending. Discussed the concerning nature of the cellulitic-like process and how rapidly it was moving. She went and saw the patient and agrees that this is an aggressive cellulitic process and would like to things a CT chest abdomen and pelvis and for surgeon to be consulted now. Spoke with Dr. Fletcher, surgeon on-call. He will come and see the patient. He agrees with current plan for vancomycin and Zosyn, fluid resuscitation. I did call patient's oncology clinic and spoke with Dr. Aranda's PA Essie. Inquired about Zosyn. She states that it is okay for patient to go ahead and have Zosyn. 01/22/19 17:41 Noted labs with leukocytosis, low hemoglobin, elevated creatinine, low sodium. Still pending lactic acid as well as CRP. Updated Dr. Palomares about the results and the fact that the LRINEC score is 7 even without CRP resulted. Call Dr. Fletcher back. Updated him about results and concern over the cellulitis. He is planning to come see the patient. 01/22/19 19:43 Dr. Fletcher came down and saw patient. He believes patient has a significant cellulitis but does not believe that it is a necrotizing fasciitis. He agrees with plan for IV fluid resuscitation and IV antibiotics. He will follow along. Updated Dr. Palomares about the plan. Called and spoke with Dr. Dave, hospitalist. He accepts the patient for admission and would like her to go to an [facility] bed. Aware of leukocytosis, fever, sepsis, cellulitis, CT readings with no gas. Come and see the patient. Impression: Right arm chest wall and back cellulitis, sepsis. Patient started on a sepsis bolus as well as vancomycin and Zosyn. Dr. Fletcher with surgery came and evaluated patient. Dr. Enciso she came and saw patient as well. Patient will be admitted to the hospital for further management and treatment. Discharge - Discharge Clinical Impression: Cellulitis, Sepsis Condition: Stable Disposition: ADMITTED INPATIENT Admitting Provider: Tenzin (Hospitalist) Unit Admitted: [facility]
[2019-01-22 17:07] LABS: INTERNATIONAL RATION (INR) 1.32; PROTHROMBIN TIME 16.5 SEC (11.4-15.4)
[2019-01-22 17:34] LABS: ALANINE AMINOTRANSFERASE 29 U/L (9-52); ALBUMIN 3.5 g/dL (3.5-5.0); ALKALINE PHOSPHATASE 100 U/L (38-126); ANION GAP 10 (5-19); ASPARTATE AMINO TRANSFERASE 39 U/L (14-36); BILIRUBIN,DIRECT 0.6 mg/dL (0.0-0.4); BILIRUBIN,TOTAL 1.4 mg/dL (0.2-1.3); BLOOD UREA NITROGEN 31 mg/dL (7-20); CALCIUM 8.6 mg/dL (8.4-10.2); CARBON DIOXIDE 27 mmol/L (22-30); CHLORIDE 94 mmol/L (98-107); GLUCOSE 143 mg/dL (75-110); POTASSIUM 3.2 mmol/L (3.6-5.0); SODIUM 130.9 mmol/L (137-145); TOTAL PROTEIN 7.4 g/dL (6.3-8.2)
--- NOTE | 2019-01-22 18:37 | RADIOLOGY REPORT (SQ) ---
EXAM DESCRIPTION: CT CHEST WITH COMPLETED DATE/TIME: 01/22/2019 6:14 pm REASON FOR STUDY: expanding cellulitis COMPARISON: 07/11/2017 TECHNIQUE: CT scan of the chest performed using helical scanning technique with dynamic intravenous contrast injection. Images reviewed with lung, soft tissue and bone windows. Reconstructed coronal and sagittal MPR images reviewed. All images stored on PACS. All CT scanners at this facility use dose modulation, iterative reconstruction, and/or weight based d osing when appropriate to reduce radiation dose to as low as reasonably achievable (ALARA). [facility]: Dose Right [facility]: CareDose [facility]: Dose Right [facility]: Teradose 4D [facility]: [employer] CONTRAST TYPE AND DOSE: Not reported on intake paperwork RENAL FUNCTION: Not reported on intake paperwork. RADIATION DOSE: . LIMITATIONS: None. FINDINGS: LUNGS AND PLEURA: Right upper lobe radiation changes. Left lower lobe subpleural partiall y calcified pulmonary nodule. No masses, infiltrates, or pneumothorax. No pleural effusions or pleu ral calcifications. AORTA AND GREAT VESSELS: No aneurysm. Contrast bolus not optimized for the aorta. HEART: No pericardial effusion. No significant coronary artery calcifications. PULMONARY ARTERIES: No emboli visualized in the main pulmonary arteries or the segmental branches. HILAR AND MEDIASTINAL STRUCTURES: No identified masses. Calcified left hilar nodes. HARDWARE: Port-A-Cath terminates at the cavoatrial junction. UPPER ABDOMEN: See separate report of the CT of the abdomen. THYROID AND OTHER SOFT TISSUES: Status post right mastectomy. A left breast nodular density demonstr ating coarse calcifications is nonspecific. No adenopathy. BONES: No acute or significant finding. OTHER: No other significant finding. IMPRESSION: Status post right mastectomy. Left breast nodular density is of uncertain etiology or s ignificance; recommend correlation with mammographic imaging. No evidence of pulmonary embolus, pulm onary metastases, or acute inflammatory process. COMMENT: Quality ID # [id number]: Final reports with documentation of one or more dose reduction techniques (e.g., Automated exposure control, adjustment of the mA and/or kV according to patient size, use of iterative reconstruction technique) TECHNICAL DOCUMENTATION: JOB ID: [id number] [employer]- All Rights Reserved Reading location - IP/workstation name: [email or web address]
--- NOTE | 2019-01-22 18:42 | RADIOLOGY REPORT (SQ) ---
EXAM DESCRIPTION: CT ABD/PELVIS WITH IV ONLY COMPLETED DATE/TIME: 01/22/2019 6:14 pm REASON FOR STUDY: expanding cellulitis COMPARISON: 07/11/2017 TECHNIQUE: CT scan of the abdomen and pelvis performed using helical scanning technique with dynamic intravenous contrast injection. No oral contrast. Images reviewed with lung, soft tissue, and bone windows. Reconstructed coronal and sagittal MPR images reviewed. Delayed images for evaluation of the urinary system also acquired. All images stored on PACS. All CT scanners at this facility use dose modulation, iterative reconstruction, and/or weight based d osing when appropriate to reduce radiation dose to as low as reasonably achievable (ALARA). [facility]: Dose Right [facility]: CareDose [facility]: Dose Right [facility]: Teradose 4D [facility]: [employer] CONTRAST TYPE AND DOSE: contrast/concentration: Isovue 350.00 mg/ml; Total Contrast Delivered: 100.0 ml; Total Saline Delivered: 72.0 ml RENAL FUNCTION: Not reported on the intake paperwork. RADIATION DOSE: CT Rad equipment meets quality standard of care and radiation dose reduction techniq ues were employed. CTDIvol: 19.4 - 21.1 mGy. DLP: 2441 mGy-cm.. LIMITATIONS: None. FINDINGS: LOWER CHEST: See separate report of the CT of the chest. LIVER: Normal size. No masses. No dilated ducts. SPLEEN: Normal size. No focal lesions. PANCREAS: No masses. No significant calcifications. No adjacent inflammation or peripancreatic fluid collections. Pancreatic duct not dilated. GALLBLADDER: Surgically absent. ADRENAL GLANDS: No significant masses or asymmetry. RIGHT KIDNEY AND URETER: No solid masses. No significant calcifications. No hydronephrosis or hyd roureter. LEFT KIDNEY AND URETER: No solid masses. No significant calcifications. No hydronephrosis or hydr oureter. AORTA AND VESSELS: No aneurysm. No dissection. Renal arteries, SMA, celiac without stenosis. RETROPERITONEUM: No retroperitoneal adenopathy, hemorrhage or masses. BOWEL AND PERITONEAL CAVITY: No masses or inflammatory changes. No free fluid or peritoneal masses. APPENDIX: Not visualized. PELVIS: Multi fibroid uterus. ABDOMINAL WALL: Fat containing umbilical hernia. BONES: No significant or acute findings. OTHER: No other significant finding. IMPRESSION: No evidence of acute intra-abdominal infectious/inflammatory process. No acute findings . TECHNICAL DOCUMENTATION: JOB ID: [id number] Quality ID # [id number]: Final reports with documentation of one or more dose reduction techniques (e.g., Au tomated exposure control, adjustment of the mA and/or kV according to patient size, use of iterative reconstruction technique) 2010 [employer]- All Rights Reserved Reading location - IP/workstation name: [email or web address]
[2019-01-22] MEDS ORDERED: VANCOMYCIN HCL 0 MG in DEXTROSE 5%-WATER 250 ML IV NR (19:30)
[2019-01-22] MEDS ORDERED: OXYCODONE HCL IR 5 MG TABLET PO PRN (19:30)
--- NOTE | 2019-01-22 19:57 | PDOC H&P ---
History of Present Illness Admission Date/PCP: 01/22/19 19:18 RHIANNON SCHMIDT MD Patient complains of: Increased pain and swelling in the right arm History of Present Illness: CHAD MYERS is a 58 year old female who finished her chemotherapy for breast cancer 1 week ago. On Sunday she began to notice some discomfort in her right arm. Yesterday she noticed some erythema and swelling and moderate pain. Today she has significant pain and marked swelling of the right arm through the axilla and right shoulder. She denies chills, fever, nausea and vomiting. She denies palpitations and diaphoresis. With her tachycardia, Fever, acute kidney injury and acute elevation of bilirubin she qualifies for sepsis. She was started on antibiotics. She was given aggressive fluid bolus based on her body weight. Her lactic acid was only 1.1. Antibiotics were started and she was referred to the hospital service for admission. Dr. Elise is her primary oncologist and Dr. Svetlana pitt will be consulting. Past Medical History Cardiac Medical History: Reports: Hypertension - medicated Denies: Coronary Artery Disease, Myocardial Infarction Pulmonary Medical History: Denies: Asthma, Bronchitis, Chronic Obstructive Pulmonary Disease (COPD), Pneumonia EENT Medical History: Denies: Cataracts, Ears Neurological Medical History: Denies: Ischemic CVA, Seizures Endocrine Medical History: Reports: Obesity Denies: Hypothyroidism Renal/ Medical History: Denies: Chronic Kidney Disease Malignancy Medical History: Reports: Breast Cancer GI Medical History: Denies: Gastroesophageal Reflux Disease, Hepatitis, Hiatal Hernia Musculoskeltal Medical History: Denies: Arthritis Psychiatric Medical History: Denies: Alcohol Dependency, Dementia, Depression, Substance Abuse, Tobacco Dependency Traumatic Medical History: Reports: None Hematology: Reports: Anemia - childbearing years Denies: Sickle Cell Disease Infectious Medical History: Reports: None Past Surgical History Past Surgical History: Reports: Cholecystectomy, Mastectomy - RIGHT, Other - Port-A-Cath placement Denies: Amputation, Hysterectomy, Pacemaker Social History Information Source: Patient Lives with: Spouse/Significant other Smoking Status: Never Smoker Frequency of Alcohol Use: None Hx Recreational Drug Use: No Hx Prescription Drug Abuse: No - Advance Directive Resuscitation Status: Full Code Surrogate healthcare decision maker:: Patient already has 1 blank healthcare proxy at home. I pointed out that there will be another one in the admission packet. Her friend Emile Waller is the designated decision maker and emergency contact. She does have grown children. We did discuss the fact that she can delineate her care expectations and parameters with the document and this will offload decision making from her children and friend. Family History Family History: Hypertension, Malignancy, Other - Knee disease Parental Family History Reviewed: Yes Children Family History Reviewed: Yes Sibling(s) Family History Reviewed.: Yes Medication/Allergy Home Medications: Amlodipine Besylate 10 mg PO DAILY 07/17/17 Hydrochlorothiazide 25 mg PO DAILY 07/17/17 Letrozole [Femara 2.5 Mg Tablet] 2.5 mg PO DAILY 06/18/18 Allergies/Adverse Reactions: No Known Allergies Allergy (Verified 01/22/19 15:03) Review of Systems Constitutional: PRESENT: as per HPI, headache(s). ABSENT: chills, fever(s), night sweats Eyes: ABSENT: visual disturbances Ears: ABSENT: hearing changes Nose, Mouth, and Throat: PRESENT: headache(s). ABSENT: mouth pain, sore throat Cardiovascular: ABSENT: chest pain, edema, palpitations Respiratory: ABSENT: cough, hemoptysis Gastrointestinal: PRESENT: diarrhea. ABSENT: abdominal pain, constipation, heartburn, nausea, vomiting Genitourinary: ABSENT: difficulty urinating, hematuria Musculoskeletal: PRESENT: other - Marked swelling of the right arm Integumentary: PRESENT: erythema Neurological: ABSENT: abnormal speech, confusion, memory loss, tremor(s) Psychiatric: ABSENT: anxiety, depression, hallucinations Endocrine: ABSENT: cold intolerance, flushing, heat intolerance, polydipsia, polyuria Hematologic/Lymphatic: ABSENT: easy bleeding, easy bruising Physical Exam Vital Signs: Temp Pulse Resp BP Pulse Ox 102.6 F H 104 H 15 121/57 L 99 01/22/19 16:35 01/22/19 15:14 01/22/19 18:14 01/22/19 18:14 01/22/19 18:14 Intake & Output 01/21/19 01/22/19 01/23/19 06:59 06:59 06:59 Weight 103.1 kg General appearance: PRESENT: no acute distress, cooperative, morbidly obese, well-developed Head exam: PRESENT: atraumatic, normocephalic Eye exam: PRESENT: conjunctiva pale, EOMI. ABSENT: scleral icterus Neck exam: ABSENT: tenderness, thyromegaly, tracheal deviation Respiratory exam: PRESENT: clear to auscultation yg, symmetrical, unlabored, other - Port-A-Cath left upper chest. ABSENT: accessory muscle use, crackles, rales, rhonchi, tachypnea, wheezes Cardiovascular exam: PRESENT: RRR, +S1, +S2, systolic murmur - 2/6 Pulses: PRESENT: normal radial pulses, normal dorsalis pedis pul GI/Abdominal exam: PRESENT: normal bowel sounds, soft. ABSENT: distended, tenderness Rectal exam: PRESENT: deferred Gentrourinary exam: ABSENT: indwelling catheter Extremities exam: PRESENT: tenderness - Marked tenderness from the proximal forearm through the right shoulder. ABSENT: pedal edema Musculoskeletal exam: PRESENT: tenderness - Extreme tenderness in the upper arm and shoulder area as well as right upper chest. ABSENT: normal inspection - Significant swelling especially in the right upper arm which is at least twice the size of the left upper arm. Neurological exam: PRESENT: alert, awake, oriented to person, oriented to place, oriented to time, oriented to situation, CN II-XII grossly intact. ABSENT: motor sensory deficit Psychiatric exam: PRESENT: appropriate affect, normal mood. ABSENT: agitated, anxious Focused psych exam: ABSENT: delusional, restlessness Skin exam: PRESENT: erythema - Marked erythema right upper arm and shoulder extending to the proximal right forearm, warm. ABSENT: abrasion, skin tears, vesicles Results Laboratory Results: 01/22/19 16:30 01/22/19 16:30 01/22/19 01/22/19 01/22/19 16:30 16:30 16:30 WBC 16.9 H RBC 3.97 Hgb 9.8 L Hct 30.3 L MCV 76 L MCH 24.7 L MCHC 32.3 RDW 14.0 Plt Count 261 Seg Neutrophils % 90.7 H Lymphocytes % 6.3 L Monocytes % 2.9 L Eosinophils % 0.0 Basophils % 0.1 Absolute Neutrophils 15.3 H Absolute Lymphocytes 1.1 Absolute Monocytes 0.5 Absolute Eosinophils 0.0 Absolute Basophils 0.0 Sodium 130.9 L Potassium 3.2 L Chloride 94 L Carbon Dioxide 27 Anion Gap 10 BUN 31 H Creatinine 1.72 H Est GFR ( Amer) 37 L Est GFR (Non-Af Amer) 30 L Glucose 143 H Lactic Acid 1.1 Calcium 8.6 Total Bilirubin 1.4 H AST 39 H ALT 29 Alkaline Phosphatase 100 Total Protein 7.4 Albumin 3.5 Impressions: Chest X-Ray 01/22/19 15:20 IMPRESSION: NO ACUTE RADIOGRAPHIC FINDING IN THE CHEST. Chest CT 01/22/19 16:53 IMPRESSION: Status post right mastectomy. Left breast nodular density is of uncertain etiology or significance; recommend correlation with mammographic imaging. No evidence of pulmonary embolus, pulmonary metastases, or acute inflammatory process. Abdomen/Pelvis CT 01/22/19 16:55 IMPRESSION: No evidence of acute intra-abdominal infectious/inflammatory process. No acute findings. Assessment and Plan - Diagnosis (1) Sepsis Qualifiers: Sepsis type: sepsis due to unspecified organism Qualified Code(s): A41.9 - Sepsis, unspecified organism Is this a current diagnosis for this admission?: Yes Plan: 01/22/2019-there is tachycardia, fever, elevated white blood cell count, acute kidney injury with elevated serum creatinine as well as acute elevation of serum bilirubin. Blood cultures, urine cultures and urinalysis have been ordered. She has already received Zosyn and vancomycin. She has a history of breast cancer and recently completed chemotherapy so broad-spectrum antibiotics are in use. She will receive aggressive fluid hydration and will be monitored closely. (2) Cellulitis Qualifiers: Site of cellulitis: extremity Site of cellulitis of extremity: upper extremity Laterality: right Qualified Code(s): L03.113 - Cellulitis of right upper limb Is this a current diagnosis for this admission?: Yes Plan: 01/22/2019-the cellulitis extends from the proximal forearm through the upper arm into the right axilla and shoulder area. She is tender towards the chest wall as well. Aggressive antibiotic therapy has been initiated. We will monitor for any evidence of Port-A-Cath infection. Continue to monitor white blood cell count. (3) Acute kidney injury Is this a current diagnosis for this admission?: Yes Plan: 01/22/2019-serum creatinine is elevated. He this is from the sepsis. She will receive aggressive hydration. Will monitor for volume overload. We will continue to monitor her renal function. (4) Hypertension Qualifiers: Hypertension type: essential hypertension Qualified Code(s): I10 - Essential (primary) hypertension Is this a current diagnosis for this admission?: Yes Plan: 01/22/2019-the patient is on amlodipine 10 mg daily as well as hydrochlorothiazide 25 mg daily. I have ordered both medications but put parameters to hold for systolic blood pressure less than 110. With the acute kidney injury we may have to hold the hydrochlorothiazide but monitor for volume overload. Her blood pressures are stable. No vasopressors are required at this time. (5) Hypokalemia Is this a current diagnosis for this admission?: Yes Plan: 01/22/2019-serum potassium is low. With the aggressive fluid resuscitation her serum potassium will dilute out to an even lower value. I have ordered 40 mEq of IV potassium and will check her electrolytes tomorrow and supplement to correct serum sodium if required. (6) Morbid obesity with BMI of 40.0-44.9, adult Is this a current diagnosis for this admission?: Yes Plan: 01/22/2019-patient's BMI is 41.6. Will encourage diet. Consider initiating exercise program when improved. (7) History of right breast cancer Is this a current diagnosis for this admission?: Yes Plan: She just finished chemotherapy last week. She did mount an elevated white blood cell count and it appears that her immune system is reacting normally. - Time Time Spent with patient: 35 or more minutes Medications reviewed and adjusted accordingly: Yes Anticipated discharge: Home - Inpatient Certification Based on my medical assessment, after consideration of the patient's comorbidities, presenting symptoms, or acuity I expect that the services needed warrant INPATIENT care.: Yes I certify that my determination is in accordance with my understanding of Medicare's requirements for reasonable and necessary INPATIENT services [42 CFR 412.3e].: Yes Medical Necessity: Need For IV Fluids, Need for IV Antibiotics Post Hospital Care: D/C [employer] Set Up Operator Documentation
--- NOTE | 2019-01-22 19:59 | ADVANCED CARE ---
- Diagnosis (1) Sepsis Diagnosis Current: Yes (2) Cellulitis Diagnosis Current: Yes (3) Acute kidney injury Diagnosis Current: Yes (4) Hypertension Diagnosis Current: Yes (5) Hypokalemia Diagnosis Current: Yes (6) Morbid obesity with BMI of 40.0-44.9, adult Diagnosis Current: Yes (7) History of right breast cancer Diagnosis Current: No Attendance: The patient only Resuscitation Status: Full Code Discussion: We did review her current status. She is getting over breast cancer. She already has a blank healthcare proxy form at home. I discussed the reasons to complete the form so that family will know what her wishes are and this can alleviate the significant burden of difficult decisions if she were to have a disastrous change in her condition. Care Planning Goals: We discussed examples of treatment delineation such as not wanting a PEG tube, tracheostomy or living in a assisted for the rest of her life. Document(s) Completed: I did remind the patient that there is a blank healthcare proxy form in the admission packet. I encouraged her to take the opportunity of being hospitalized to complete the form during this admission. Time Spent: 20
[2019-01-22] MEDS: POTASSI CL 20 MEQ/50 ML RIDER 20 MEQ/50 ML RTUPB IV SCH ×2 (20:28→22:51)
[2019-01-22 21:29] LABS: AMORPHOUS SEDIMENT,URINE TRACE /HPF; APPEARANCE,URINE CLOUDY; BILIRUBIN,URINE NEGATIVE (NEGATIVE); COLOR,URINE YELLOW; GLUCOSE, URINE NEGATIVE (NEGATIVE); KETONES,URINE NEGATIVE (NEGATIVE); LEUKOCYTE ESTERASE,URINE LARGE (NEGATIVE); NITRITE,URINE NEGATIVE (NEGATIVE); PROTEIN,URINE 30 mg/dL (NEGATIVE); URINE SPECIFIC GRAVITY 1.031; UROBILINOGEN,URINE NEGATIVE mg/dL (<2.0)
--- NOTE | 2019-01-22 22:31 | PDOC CONSULTATION ---
Consultation Consult Date: 01/22/19 Provider Consulted: BINU VALDIVIA Consult reason:: Cellulitis right arm to right axilla and chest wall History of Present Illness Admission Date/PCP: 01/22/19 19:18 RHIANNON SCHMIDT MD History of Present Illness: CHAD MYERS is a 58 year old female with history of right mastectomy for carcinoma. She had her last dose of po chemotherapy last week. Past 2 days developed redness along the right arm extending to the right axilla and chest wall. I was asked by ER PA to consult on this cellulitis. Known to have lymphedema right arm post mastectomy. Denies fever/chills. WBC elevated. Past Medical History Cardiac Medical History: Reports: Hypertension - medicated Denies: Coronary Artery Disease, Myocardial Infarction Pulmonary Medical History: Denies: Asthma, Bronchitis, Chronic Obstructive Pulmonary Disease (COPD), Pneumonia EENT Medical History: Denies: Cataracts, Ears Neurological Medical History: Denies: Ischemic CVA, Seizures Endocrine Medical History: Reports: Obesity Denies: Hypothyroidism Renal/ Medical History: Denies: Chronic Kidney Disease Malignancy Medical History: Reports: Breast Cancer GI Medical History: Denies: Gastroesophageal Reflux Disease, Hepatitis, Hiatal Hernia Musculoskeltal Medical History: Denies: Arthritis Psychiatric Medical History: Denies: Alcohol Dependency, Dementia, Depression, Substance Abuse, Tobacco Dependency Traumatic Medical History: Reports: None Hematology: Reports: Anemia - childbearing years Denies: Sickle Cell Disease Infectious Medical History: Reports: None Past Surgical History Past Surgical History: Reports: Cholecystectomy, Mastectomy - RIGHT, Other - Port-A-Cath placement Denies: Amputation, Hysterectomy, Pacemaker Social History Lives with: Spouse/Significant other Smoking Status: Never Smoker Frequency of Alcohol Use: None Hx Recreational Drug Use: No Hx Prescription Drug Abuse: No - Advance Directive Resuscitation Status: Full Code Family History Family History: Hypertension, Malignancy, Other - Knee disease Parental Family History Reviewed: Yes Children Family History Reviewed: No Sibling(s) Family History Reviewed.: No Medication/Allergy Home Medications: Amlodipine Besylate 10 mg PO DAILY 07/17/17 Hydrochlorothiazide 25 mg PO DAILY 07/17/17 Letrozole [Femara 2.5 Mg Tablet] 2.5 mg PO DAILY 06/18/18 Allergies/Adverse Reactions: No Known Allergies Allergy (Verified 01/22/19 15:03) Review of Systems Constitutional: PRESENT: as per HPI Eyes: PRESENT: other - no visual/hearing changes Cardiovascular: PRESENT: other - no chest pains/cough Gastrointestinal: PRESENT: other - no pains Physical Exam Vital Signs: Temp Pulse Resp BP Pulse Ox 98.5 F 104 H 18 139/67 H 100 01/22/19 19:36 01/22/19 15:14 01/22/19 21:01 01/22/19 21:01 01/22/19 21:01 Intake & Output 01/21/19 01/22/19 01/23/19 06:59 06:59 06:59 Intake Total 2049 Balance 2049 Weight 103.1 kg General appearance: PRESENT: mild distress Head exam: PRESENT: atraumatic Eye exam: PRESENT: conjunctiva pink Mouth exam: PRESENT: moist Neck exam: PRESENT: full ROM Respiratory exam: PRESENT: clear to auscultation yg Cardiovascular exam: PRESENT: RRR Pulses: PRESENT: normal radial pulses Vascular exam: PRESENT: normal capillary refill GI/Abdominal exam: PRESENT: soft Rectal exam: PRESENT: deferred Extremities exam: PRESENT: other - erythema from right elbow to axilla to right chest wall. Soft and minimal tenderness. Hae right arm lymphedema Neurological exam: PRESENT: alert, oriented to person, oriented to place, oriented to time, oriented to situation Psychiatric exam: PRESENT: appropriate affect Skin exam: PRESENT: erythema, warm Results Laboratory Results: 01/22/19 16:30 01/22/19 16:30 01/22/19 01/22/19 01/22/19 16:30 16:30 16:30 WBC 16.9 H RBC 3.97 Hgb 9.8 L Hct 30.3 L MCV 76 L MCH 24.7 L MCHC 32.3 RDW 14.0 Plt Count 261 Seg Neutrophils % 90.7 H Lymphocytes % 6.3 L Monocytes % 2.9 L Eosinophils % 0.0 Basophils % 0.1 Absolute Neutrophils 15.3 H Absolute Lymphocytes 1.1 Absolute Monocytes 0.5 Absolute Eosinophils 0.0 Absolute Basophils 0.0 Sodium 130.9 L Potassium 3.2 L Chloride 94 L Carbon Dioxide 27 Anion Gap 10 BUN 31 H Creatinine 1.72 H Est GFR ( Amer) 37 L Est GFR (Non-Af Amer) 30 L Glucose 143 H Lactic Acid 1.1 Calcium 8.6 Total Bilirubin 1.4 H AST 39 H ALT 29 Alkaline Phosphatase 100 C-Reactive Protein Total Protein 7.4 Albumin 3.5 Urine Color Urine Appearance Urine pH Ur Specific [place] Urine Protein Urine Glucose (UA) Urine Ketones Urine Blood Urine Nitrite Ur Leukocyte Esterase Urine WBC (Auto) Urine RBC (Auto) 01/22/19 01/22/19 16:30 20:29 WBC RBC Hgb Hct MCV MCH MCHC RDW Plt Count Seg Neutrophils % Lymphocytes % Monocytes % Eosinophils % Basophils % Absolute Neutrophils Absolute Lymphocytes Absolute Monocytes Absolute Eosinophils Absolute Basophils Sodium Potassium Chloride Carbon Dioxide Anion Gap BUN Creatinine Est GFR ( Amer) Est GFR (Non-Af Amer) Glucose Lactic Acid Calcium Total Bilirubin AST ALT Alkaline Phosphatase C-Reactive Protein 89.6 H Total Protein Albumin Urine Color YELLOW Urine Appearance CLOUDY Urine pH 5.0 Ur Specific [place] 1.031 Urine Protein 30 H Urine Glucose (UA) NEGATIVE Urine Ketones NEGATIVE Urine Blood MODERATE H Urine Nitrite NEGATIVE Ur Leukocyte Esterase LARGE H Urine WBC (Auto) >182 Urine RBC (Auto) 13 Impressions: Chest X-Ray 01/22/19 15:20 IMPRESSION: NO ACUTE RADIOGRAPHIC FINDING IN THE CHEST. Chest CT 01/22/19 16:53 IMPRESSION: Status post right mastectomy. Left breast nodular density is of uncertain etiology or significance; recommend correlation with mammographic imaging. No evidence of pulmonary embolus, pulmonary metastases, or acute inflammatory process. Abdomen/Pelvis CT 01/22/19 16:55 IMPRESSION: No evidence of acute intra-abdominal infectious/inflammatory process. No acute findings. Assessment & Plan - Diagnosis (1) Cellulitis Qualifiers: Site of cellulitis: extremity Site of cellulitis of extremity: upper extremity Laterality: right Qualified Code(s): L03.113 - Cellulitis of right upper limb Is this a current diagnosis for this admission?: Yes (2) History of right breast cancer Is this a current diagnosis for this admission?: Yes (3) Sepsis Qualifiers: Sepsis type: sepsis due to unspecified organism Qualified Code(s): A41.9 - Sepsis, unspecified organism Is this a current diagnosis for this admission?: Yes - Time Time Spent: 30 to 50 Minutes - Inpatient Certification Medical Necessity: Need for IV Antibiotics - Plan Summary Plan Summary: Continue IV antibiotics No surgical indication at this time Call us if cellulitis worsens
[2019-01-23] MEDS ORDERED: PIPERACILLIN SODIUM/TAZOBACTAM 4.5 GM in NORMAL SALINE 100 ML IV SCH ×2
[2019-01-23] MEDS: PIPERACILLIN SODIUM/TAZOBACTAM 3.375 GM in NORMAL SALINE 100 ML IV SCH ×5 (00:20→23:30)
[2019-01-23] MEDS: ACETAMINOPHEN 325 MG TABLET PO PRN ×3 (03:23→22:15)
[2019-01-23] MEDS: PANTOPRAZOLE SODIUM 40 MG TABLET.DR PO SCH (05:36)
[2019-01-23 07:00] LABS: ABSOLUTE LYMPHOCYTES (AUTO) 0.7 10^3/uL (0.5-4.7); ABSOLUTE MONOCYTES (AUTO) 0.5 10^3/uL (0.1-1.4); BASOPHILS % (AUTO) 0.2 % (0-2); HEMATOCRIT 25.8 % (36.0-47.0); HEMOGLOBIN 8.4 g/dL (12.0-15.5); LYMPHOCYTES % (AUTO) 5.7 % (13-45); MEAN CORPUSCULAR HEMOGLOBIN 24.8 pg (27.0-33.4); MEAN CORPUSCULAR HGB CONC 32.4 g/dL (32.0-36.0); MEAN CORPUSCULAR VOLUME 77 fl (80-97); MONOCYTES % (AUTO) 3.9 % (3-13); PLATELET COUNT 235 10^3/uL (150-450); RED BLOOD COUNT 3.37 10^6/uL (3.72-5.28); SEGMENTED NEUTROPHILS % (AUTO) 90.2 % (42-78); TOTAL CELLS COUNTED % (AUTO) 100 %; WHITE BLOOD COUNT 12.2 10^3/uL (4.0-10.5)
[2019-01-23 07:10] LABS: ANION GAP 6 (5-19); BLOOD UREA NITROGEN 22 mg/dL (7-20); CARBON DIOXIDE 20 mmol/L (22-30); CHLORIDE 109 mmol/L (98-107); GLUCOSE 95 mg/dL (75-110); POTASSIUM 3.2 mmol/L (3.6-5.0); SODIUM 135.4 mmol/L (137-145)
[2019-01-23 07:17] LABS: CALCIUM 6.6 mg/dL (8.4-10.2)
[2019-01-23] MEDS ORDERED: CALCIUM GLUCONATE 1,000 MG in DEXTROSE 5%-WATER 50 ML IV ONE (08:00)
[2019-01-23] MEDS: MAGNESIUM SULFATE/D5W 1 GM/100 ML RTUPB IV SCH ×2 (08:20→09:48)
[2019-01-23] MEDS ORDERED: POTASSIUM CHLORIDE 10 MEQ CAPSULE.ER PO ONE (08:30)
[2019-01-23] MEDS ORDERED: CALCIUM GLUCONATE 1000 MG/10 ML INJ IV ONE (09:00)
--- NOTE | 2019-01-23 09:02 | PDOC CONSULTATION ---
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 He was tolerating therapy great throughout, and she was doing well. But she presents with a 48 however history of increasing redness in the right arm, extending to the upper right chest wall, axilla and abdominal wall. When she presented she had a fever of 102, was tachycardic. We sent her to the ED, she had cultures and urine cultures and these are pending, she is placed on Zosyn and vancomycin. She is feeling better today. She still had a fever earlier this morning at 102. She had CT of the chest abdomen pelvis looking for any fluid collection and all this was negative. She also had a Doppler/ultrasound of the extremity and this is pending. Past Medical History Cardiac Medical History: Reports: Hypertension - medicated Denies: Coronary Artery Disease, Myocardial Infarction Pulmonary Medical History: Denies: Asthma, Bronchitis, Chronic Obstructive Pulmonary Disease (COPD), Pneumonia EENT Medical History: Denies: Cataracts, Ears Neurological Medical History: Denies: Ischemic CVA, Seizures Endocrine Medical History: Reports: Obesity Denies: Hypothyroidism Renal/ Medical History: Denies: Chronic Kidney Disease Malignancy Medical History: Reports: Breast Cancer GI Medical History: Denies: Gastroesophageal Reflux Disease, Hepatitis, Hiatal Hernia Musculoskeltal Medical History: Denies: Arthritis Psychiatric Medical History: Denies: Alcohol Dependency, Dementia, Depression, Substance Abuse, Tobacco Dependency Traumatic Medical History: Reports: None Hematology: Reports: Anemia - childbearing years Denies: Sickle Cell Disease Infectious Medical History: Reports: None Past Surgical History Past Surgical History: Reports: Cholecystectomy, Mastectomy - RIGHT, Other - Port-A-Cath placement Denies: Amputation, Hysterectomy, Pacemaker Social History Information Source: Patient Lives with: Spouse/Significant other Smoking Status: Never Smoker Frequency of Alcohol Use: None Hx Recreational Drug Use: No Hx Prescription Drug Abuse: No - Advance Directive Resuscitation Status: Full Code Family History Family History: Hypertension, Malignancy, Other - Knee disease Parental Family History Reviewed: Yes Children Family History Reviewed: Yes Sibling(s) Family History Reviewed.: Yes Medication/Allergy Home Medications: Amlodipine Besylate 10 mg PO DAILY 07/17/17 Hydrochlorothiazide 25 mg PO DAILY 07/17/17 Letrozole [Femara 2.5 Mg Tablet] 2.5 mg PO DAILY 06/18/18 Allergies/Adverse Reactions: No Known Allergies Allergy (Verified 01/22/19 15:03) Review of Systems Constitutional: ABSENT: chills, fever(s), headache(s), weight gain, weight loss Eyes: ABSENT: visual disturbances Ears: ABSENT: hearing changes Cardiovascular: ABSENT: chest pain, dyspnea on exertion, edema, orthropnea, palpitations Respiratory: ABSENT: cough, hemoptysis Gastrointestinal: ABSENT: abdominal pain, constipation, diarrhea, hematemesis, hematochezia, nausea, vomiting Genitourinary: ABSENT: dysuria, hematuria Musculoskeletal: ABSENT: joint swelling Integumentary: ABSENT: rash, wounds Neurological: ABSENT: abnormal gait, abnormal speech, confusion, dizziness, focal weakness, syncope Psychiatric: ABSENT: anxiety, depression, homidical ideation, suicidal ideation Endocrine: ABSENT: cold intolerance, heat intolerance, polydipsia, polyuria Hematologic/Lymphatic: ABSENT: easy bleeding, easy bruising Physical Exam Vital Signs: Temp Pulse Resp BP Pulse Ox 98.9 F 86 16 119/51 L 97 01/23/19 07:58 01/23/19 07:58 01/23/19 07:58 01/23/19 07:58 01/23/19 07:58 Intake & Output 01/22/19 01/23/19 01/24/19 06:59 06:59 06:59 Intake Total 3440 Output Total 300 Balance 3140 Weight 103 kg General appearance: PRESENT: no acute distress, well-developed, well-nourished Head exam: PRESENT: atraumatic, normocephalic Eye exam: PRESENT: conjunctiva pink, EOMI, PERRLA. ABSENT: scleral icterus Ear exam: PRESENT: normal external ear exam Mouth exam: PRESENT: moist, tongue midline Neck exam: ABSENT: carotid bruit, JVD, lymphadenopathy, thyromegaly Respiratory exam: PRESENT: clear to auscultation yg. ABSENT: rales, rhonchi, wheezes Cardiovascular exam: PRESENT: RRR. ABSENT: diastolic murmur, rubs, systolic murmur Pulses: PRESENT: normal dorsalis pedis pul Vascular exam: PRESENT: normal capillary refill GI/Abdominal exam: PRESENT: normal bowel sounds, soft. ABSENT: distended, guarding, mass, organolmegaly, rebound, tenderness Rectal exam: PRESENT: deferred Extremities exam: PRESENT: full ROM. ABSENT: calf tenderness, clubbing, pedal edema Neurological exam: PRESENT: alert, awake, oriented to person, oriented to place, oriented to time, oriented to situation, CN II-XII grossly intact. ABSENT: motor sensory deficit Psychiatric exam: PRESENT: appropriate affect, normal mood. ABSENT: homicidal ideation, suicidal ideation Skin exam: PRESENT: dry, intact, warm. ABSENT: cyanosis, rash Results Laboratory Results: 01/23/19 05:33 01/23/19 05:33 01/22/19 01/22/19 01/22/19 16:30 16:30 16:30 WBC 16.9 H RBC 3.97 Hgb 9.8 L Hct 30.3 L MCV 76 L MCH 24.7 L MCHC 32.3 RDW 14.0 Plt Count 261 Seg Neutrophils % 90.7 H Lymphocytes % 6.3 L Monocytes % 2.9 L Eosinophils % 0.0 Basophils % 0.1 Absolute Neutrophils 15.3 H Absolute Lymphocytes 1.1 Absolute Monocytes 0.5 Absolute Eosinophils 0.0 Absolute Basophils 0.0 Sodium 130.9 L Potassium 3.2 L Chloride 94 L Carbon Dioxide 27 Anion Gap 10 BUN 31 H Creatinine 1.72 H Est GFR ( Amer) 37 L Est GFR (Non-Af Amer) 30 L Glucose 143 H Lactic Acid 1.1 Calcium 8.6 Magnesium Total Bilirubin 1.4 H AST 39 H ALT 29 Alkaline Phosphatase 100 C-Reactive Protein Total Protein 7.4 Albumin 3.5 Urine Color Urine Appearance Urine pH Ur Specific Ashby Urine Protein Urine Glucose (UA) Urine Ketones Urine Blood Urine Nitrite Ur Leukocyte Esterase Urine WBC (Auto) Urine RBC (Auto) 01/22/19 01/22/19 01/23/19 16:30 20:29 05:33 WBC RBC Hgb Hct MCV MCH MCHC RDW Plt Count Seg Neutrophils % Lymphocytes % Monocytes % Eosinophils % Basophils % Absolute Neutrophils Absolute Lymphocytes Absolute Monocytes Absolute Eosinophils Absolute Basophils Sodium 135.4 L Potassium 3.2 L Chloride 109 H Carbon Dioxide 20 L Anion Gap 6 BUN 22 H Creatinine 1.25 Est GFR ( Amer) 53 L Est GFR (Non-Af Amer) 44 L Glucose 95 Lactic Acid Calcium 6.6 L* Magnesium 1.4 L Total Bilirubin AST ALT Alkaline Phosphatase C-Reactive Protein 89.6 H Total Protein Albumin Urine Color YELLOW Urine Appearance CLOUDY Urine pH 5.0 Ur Specific Ashby 1.031 Urine Protein 30 H Urine Glucose (UA) NEGATIVE Urine Ketones NEGATIVE Urine Blood MODERATE H Urine Nitrite NEGATIVE Ur Leukocyte Esterase LARGE H Urine WBC (Auto) >182 Urine RBC (Auto) 13 01/23/19 05:33 WBC 12.2 H RBC 3.37 L Hgb 8.4 L Hct 25.8 L MCV 77 L MCH 24.8 L MCHC 32.4 RDW 14.0 Plt Count 235 Seg Neutrophils % 90.2 H Lymphocytes % 5.7 L Monocytes % 3.9 Eosinophils % 0.0 Basophils % 0.2 Absolute Neutrophils 11.0 H Absolute Lymphocytes 0.7 Absolute Monocytes 0.5 Absolute Eosinophils 0.0 Absolute Basophils 0.0 Sodium Potassium Chloride Carbon Dioxide Anion Gap BUN Creatinine Est GFR ( Amer) Est GFR (Non-Af Amer) Glucose Lactic Acid Calcium Magnesium Total Bilirubin AST ALT Alkaline Phosphatase C-Reactive Protein Total Protein Albumin Urine Color Urine Appearance Urine pH Ur Specific Ashby Urine Protein Urine Glucose (UA) Urine Ketones Urine Blood Urine Nitrite Ur Leukocyte Esterase Urine WBC (Auto) Urine RBC (Auto) Impressions: Chest X-Ray 01/22/19 15:20 IMPRESSION: NO ACUTE RADIOGRAPHIC FINDING IN THE CHEST. Chest CT 01/22/19 16:53 IMPRESSION: Status post right mastectomy. Left breast nodular density is of uncertain etiology or significance; recommend correlation with mammographic imaging. No evidence of pulmonary embolus, pulmonary metastases, or acute inflammatory process. Abdomen/Pelvis CT 01/22/19 16:55 IMPRESSION: No evidence of acute intra-abdominal infectious/inflammatory process. No acute findings. Status: Image reviewed by me Assessment & Plan - Diagnosis (1) Cellulitis Qualifiers: Site of cellulitis: extremity Site of cellulitis of extremity: upper extremity Laterality: right Qualified Code(s): L03.113 - Cellulitis of right upper limb Is this a current diagnosis for this admission?: Yes Plan: Severe cellulitis, continue with broad-spectrum antibiotics with Zosyn and vancomycin for the next 24 hours, hopefully by tomorrow we should have culture results. After 48 hours of no fevers and cultures negative we may be able to lessen the spectrum. Continue per hospitalist team. (2) Sepsis Qualifiers: Sepsis type: sepsis due to unspecified organism Qualified Code(s): A41.9 - Sepsis, unspecified organism Is this a current diagnosis for this admission?: Yes Plan: Secondary to cellulitis, early sepsis, continue with IV antibiotics and await culture results (3) Acute kidney injury Is this a current diagnosis for this admission?: Yes Plan: Also probably secondary to sepsis, should improve over time with fluids and treating underlying cause (4) Breast cancer Qualifiers: Breast location: upper outer quadrant of breast Estrogen receptor status: negative Patient sex: female Laterality: right Qualified Code(s): C50.411 - Malignant neoplasm of upper-outer quadrant of right female breast; Z17.1 - Estrogen receptor negative status [ER-] Is this a current diagnosis for this admission?: Yes Plan: HER-2 positive right breast cancer, status post all therapy, patient does have high cure rate, will follow. - Time Time Spent: Greater than 70 Minutes - Inpatient Certification Based on my medical assessment, after consideration of the patient's efrain rbidities, presenting symptoms, or acuity I expect that the services needed warrant INPATIENT care.: Yes I certify that my determination is in accordance with my understanding of Medicare's requirements for reasonable and necessary INPATIENT services [42 CFR 412.3e].: Yes Medical Necessity: Need for IV Antibiotics
[2019-01-23] MEDS: AMLODIPINE BESYLATE 10 MG TABLET PO SCH (09:46)
[2019-01-23] MEDS: LETROZOLE 2.5 MG TABLET PO SCH (09:47)
[2019-01-23] MEDS: HYDROCHLOROTHIAZIDE 25 MG TABLET PO SCH (09:47)
[2019-01-23] MEDS: VANCOMYCIN HCL 1,250 MG in DEXTROSE 5%-WATER 250 ML IV SCH (13:18)
--- NOTE | 2019-01-23 17:45 | RADIOLOGY REPORT (SQ) ---
EXAM DESCRIPTION: VENOUS UNILATERAL UPPER COMPLETED DATE/TIME: 01/22/2019 6:27 pm REASON FOR STUDY: RT UPPER SWELLING COMPARISON: None. TECHNIQUE: Dynamic and static jordan scale and color images acquired of the right arm venous system. S elected spectral images acquired with additional compression and augmentation maneuvers. Images store d on PACS. LIMITATIONS: None. FINDINGS: RIGHT INTERNAL JUGULAR VEIN: Normal phasicity, compression, augmentation. No visualized echogenic material on jordan scale. No defects on color images. Comparison opposite side normal. SUBCLAVIAN VEIN: Normal compression, augmentation. No visualized echogenic material on jordan scale. No defects on color images. AXILLARY VEIN: Normal compression, augmentation. No visualized echogenic material on jordan scale. No d efects on color images. BRACHIAL VEIN: Normal compression, augmentation. No visualized echogenic material on jordan scale. No d efects on color images. BASILIC VEIN: Normal compression, augmentation. No visualized echogenic material on jordan scale. No de fects on color images. CEPHALIC VEIN: Normal compression, augmentation. No visualized echogenic material on jordan scale. No d efects on color images. OTHER: No other significant finding. IMPRESSION: NO EVIDENCE DVT OR SVT RIGHT ARM. TECHNICAL DOCUMENTATION: JOB ID: [id number] [employer]- All Rights Reserved Reading location - IP/workstation name: [email or web address]
[2019-01-23] MEDS ORDERED: VANCOMYCIN HCL 1,000 MG in DEXTROSE 5%-WATER 250 ML IV SCH (18:00)
[2019-01-24] MEDS: PANTOPRAZOLE SODIUM 40 MG TABLET.DR PO SCH (05:36)
[2019-01-24] MEDS: PIPERACILLIN SODIUM/TAZOBACTAM 3.375 GM in NORMAL SALINE 100 ML IV SCH ×4 (05:36→23:15)
[2019-01-24] MEDS ORDERED: DIPHENHYDRAMINE HCL 25 MG CAPSULE PO PRN (08:18)
--- NOTE | 2019-01-24 08:36 | PDOC PROGRESS REPORT ---
Subjective Progress Note for:: 01/24/19 Subjective:: Patient states that she thought she was getting better, but all night, she has had itching in her right arm and this morning, she has small pustular rash over that same arm. She has been using her regular home moisturizing creams over the area. ROS: No dyspnea, no nausea, constipation, or diarrhea. Reason For Visit: CELLULITIS RIGHT ARM AND CHEST, SEPSIS, ACUTE Physical Exam Vital Signs: Temp Pulse Resp BP Pulse Ox 97.9 F 67 22 H 107/48 L 97 01/24/19 03:23 01/24/19 03:23 01/24/19 03:23 01/24/19 03:23 01/24/19 03:23 Intake & Output 01/23/19 01/24/19 01/25/19 06:59 06:59 06:59 Intake Total 3440 1448 Output Total 300 Balance 3140 1448 Weight 103 kg 107.1 kg General appearance: PRESENT: no acute distress, obese, well-developed Head exam: PRESENT: normocephalic Respiratory exam: PRESENT: unlabored Extremities exam: PRESENT: +1 edema - Right upper extremity. Neurological exam: PRESENT: alert, awake Psychiatric exam: PRESENT: anxious Skin exam: PRESENT: other - Pustular rash over right upper extremity with edema and erythema. Results Laboratory Results: 01/23/19 05:33 01/23/19 05:33 Impressions: Venous Doppler Study 01/22/19 00:00 IMPRESSION: NO EVIDENCE DVT OR SVT RIGHT ARM. Chest X-Ray 01/22/19 15:20 IMPRESSION: NO ACUTE RADIOGRAPHIC FINDING IN THE CHEST. Chest CT 01/22/19 16:53 IMPRESSION: Status post right mastectomy. Left breast nodular density is of uncertain etiology or significance; recommend correlation with mammographic imaging. No evidence of pulmonary embolus, pulmonary metastases, or acute inflammatory process. Abdomen/Pelvis CT 01/22/19 16:55 IMPRESSION: No evidence of acute intra-abdominal infectious/inflammatory process. No acute findings. Assessment & Plan - Diagnosis (1) Breast cancer Qualifiers: Breast location: upper outer quadrant of breast Estrogen receptor status: negative Patient sex: female Laterality: right Qualified Code(s): C50.411 - Malignant neoplasm of upper-outer quadrant of right female breast; Z17.1 - Estrogen receptor negative status [ER-] Is this a current diagnosis for this admission?: Yes Plan: HER2+ But she completed all of her adjuvant treatment a few weeks ago. There has been no recent evidence of any breast cancer. CT scan was performed 2 days ago without evidence of metastatic disease. Nodular area in contralateral breast will be followed as outpatient. (2) Cellulitis Qualifiers: Site of cellulitis: extremity Site of cellulitis of extremity: upper extremity Laterality: right Qualified Code(s): L03.113 - Cellulitis of right upper limb Is this a current diagnosis for this admission?: Yes Plan: Appears to be a bit worse today. Unclear if antibiotics are causing itching, or if cellulitis is causing itching. I have added rah COLBERT. I discussed her care with hospitalist. Continue current antibiotics for now.
[2019-01-24] MEDS ORDERED: POTASSIUM CHLORIDE 10 MEQ CAPSULE.ER PO ONE ×2 (09:30→12:30)
[2019-01-24] MEDS: AMLODIPINE BESYLATE 10 MG TABLET PO SCH (10:13)
[2019-01-24] MEDS: HYDROCHLOROTHIAZIDE 25 MG TABLET PO SCH (10:13)
[2019-01-24] MEDS: LETROZOLE 2.5 MG TABLET PO SCH (10:13)
[2019-01-24 10:27] LABS: HEMATOCRIT 27.4 % (36.0-47.0); MEAN CORPUSCULAR HEMOGLOBIN 24.9 pg (27.0-33.4); MEAN CORPUSCULAR HGB CONC 32.7 g/dL (32.0-36.0); MEAN CORPUSCULAR VOLUME 76 fl (80-97); PLATELET COUNT 289 10^3/uL (150-450); RED BLOOD COUNT 3.61 10^6/uL (3.72-5.28); RED CELL DISTRIBUTION WIDTH 14.2 % (11.5-14.0); WHITE BLOOD COUNT 14.8 10^3/uL (4.0-10.5)
[2019-01-24 10:53] LABS: ANION GAP 11 (5-19); BLOOD UREA NITROGEN 19 mg/dL (7-20); CALCIUM 8.9 mg/dL (8.4-10.2); CARBON DIOXIDE 25 mmol/L (22-30); CHLORIDE 102 mmol/L (98-107); GLUCOSE 150 mg/dL (75-110); PHOSPHORUS 3.1 mg/dL (2.5-4.5); POTASSIUM 3.3 mmol/L (3.6-5.0); SODIUM 137.5 mmol/L (137-145)
[2019-01-24] MEDS: MAGNESIUM SULFATE/D5W 1 GM/100 ML RTUPB IV SCH ×2 (11:59→12:00)
[2019-01-24] MEDS: VANCOMYCIN HCL 1,250 MG in DEXTROSE 5%-WATER 250 ML IV SCH (12:18)
--- NOTE | 2019-01-24 14:19 | PDOC PROGRESS REPORT ---
Subjective Progress Note for:: 01/24/19 Subjective:: CHAD YMERS is a very pleasant 58 year old female with PMH HTN and stage I HER-2 positive breast cancer, received chemotherapy plus Herceptin/Perjeta initially, but last true chemotherapy was about 7 to 8 months ago, Herceptin/Perjeta was last given about 3 weeks ago, this was her final treatment. The patient was admitted to [facility] for cellulitis and lymphedema to the RUE. Patient was seen this morning on rounds, she is resting comfortably in bedside recliner, reading the newspaper. Family is at the bedside. The patient is concerned about multiple, small, fluid-filled pustules in the antecubital area. These are new today, were not present 24 hours ago. The extremity remains edematous and there is widespread erythema, but is does not appear to be any worse when compared to yesterday. The patient does not endorse worsening pain, swelling or tightness to the RUE. She does complain of itching and "heat" to the RUE. Venous Doppler studies negative for DVT. Reiterated to the patient (again) that she needs to elevate her RUE. Do not believe that the diffuse pustules are related to an allergic reaction as they are not systemic. Additionally, the patient's eosinophil count is 0 on her CBC. Systemic allergic reaction secondary to medication unlikely. Patient reports she has been applying [id number] moisturizing lotion to the RUE, ins tructed her to stop for now. PRN Benadryl is available for pruritus. Cool packs/washcloths may be applied topically for patient comfort. Plan to keep patient at [facility] for persistent lymphedema and cellulitis of the RUE. Reason For Visit: CELLULITIS RIGHT ARM AND CHEST, SEPSIS, ACUTE Physical Exam Vital Signs: Temp Pulse Resp BP Pulse Ox 97.9 F 74 16 126/69 H 100 01/24/19 07:32 01/24/19 07:32 01/24/19 07:32 01/24/19 07:32 01/24/19 07:32 Intake & Output 01/23/19 01/24/19 01/25/19 06:59 06:59 06:59 Intake Total 3440 1448 100 Output Total 300 Balance 3140 1448 100 Weight 103 kg 107.1 kg General appearance: PRESENT: no acute distress, morbidly obese Head exam: PRESENT: atraumatic, normocephalic Eye exam: PRESENT: conjunctiva pink, EOMI, PERRLA. ABSENT: scleral icterus Ear exam: PRESENT: normal external ear exam Mouth exam: PRESENT: moist, tongue midline Neck exam: ABSENT: carotid bruit, JVD, lymphadenopathy, thyromegaly Respiratory exam: PRESENT: clear to auscultation yg, symmetrical, unlabored. ABSENT: rales, rhonchi, wheezes Cardiovascular exam: PRESENT: RRR. ABSENT: diastolic murmur, rubs, systolic murmur Pulses: PRESENT: normal radial pulses, normal dorsalis pedis pul Vascular exam: PRESENT: normal capillary refill GI/Abdominal exam: PRESENT: normal bowel sounds, soft. ABSENT: distended, guarding, mass, organolmegaly, rebound, tenderness Rectal exam: PRESENT: deferred Extremities exam: PRESENT: full ROM, +1 edema, +2 edema, other - NON-PITTING EDEMA TO THE RUE.. ABSENT: calf tenderness, clubbing, pedal edema Musculoskeletal exam: PRESENT: full ROM Neurological exam: PRESENT: alert, awake, oriented to person, oriented to place, oriented to time, oriented to situation Psychiatric exam: PRESENT: appropriate affect, normal mood. ABSENT: homicidal ideation, suicidal ideation Skin exam: PRESENT: dry, erythema - DIFFUSE ERYTHEMA TO THE RUE, intact, warm. ABSENT: cyanosis, rash Results Laboratory Results: 01/24/19 10:00 01/24/19 10:00 01/24/19 01/24/19 10:00 10:00 WBC 14.8 H RBC 3.61 L Hgb 9.0 L Hct 27.4 L MCV 76 L MCH 24.9 L MCHC 32.7 RDW 14.2 H Plt Count 289 Sodium 137.5 Potassium 3.3 L Chloride 102 Carbon Dioxide 25 Anion Gap 11 BUN 19 Creatinine 1.50 H Est GFR ( Amer) 43 L Est GFR (Non-Af Amer) 36 L Glucose 150 H Calcium 8.9 Phosphorus 3.1 Magnesium 2.0 01/22/19 20:29 Clean Catch Midstream Urine Culture - Final Mixed Urogenital Ana Rosa Impressions: Venous Doppler Study 01/22/19 00:00 IMPRESSION: NO EVIDENCE DVT OR SVT RIGHT ARM. Chest X-Ray 01/22/19 15:20 IMPRESSION: NO ACUTE RADIOGRAPHIC FINDING IN THE CHEST. Chest CT 01/22/19 16:53 IMPRESSION: Status post right mastectomy. Left breast nodular density is of uncertain etiology or significance; recommend correlation with mammographic imaging. No evidence of pulmonary embolus, pulmonary metastases, or acute inflammatory process. Abdomen/Pelvis CT 01/22/19 16:55 IMPRESSION: No evidence of acute intra-abdominal infectious/inflammatory process. No acute findings. Status: Imported from PACS Assessment and Plan - Diagnosis (1) Sepsis Qualifiers: Sepsis type: sepsis due to unspecified organism Qualified Code(s): A41.9 - Sepsis, unspecified organism Is this a current diagnosis for this admission?: Yes Plan: Resolved Presented with tachycardia, fever, leukocytosis, MCKENZIE and acute elevation of serum bilirubin Blood cultures pending Empiric antibiotic coverage with IV Zosyn and vancomycin PMH breast CA, recently completed chemotherapy. Broad-spectrum ABX coverage is warranted given her immunosuppression (2) Cellulitis Qualifiers: Site of cellulitis: extremity Site of cellulitis of extremity: upper extremity Laterality: right Qualified Code(s): L03.113 - Cellulitis of right upper limb Is this a current diagnosis for this admission?: Yes Plan: Extending from the proximal forearm to the upper arm into the right axilla Tender towards anterior chest wall Very likely to be lymphedema cellulitis given her lymph node removal during recent mastectomy Broad-spectrum antibiotic coverage with Zosyn and vancomycin At this time, no evidence of Port-A-Cath infection (3) Lymphedema Is this a current diagnosis for this admission?: Yes Plan: Present in the RUE following mastectomy with lymph node removal Encouraged elevation of extremity at all times Venous doppler studies negative for DVT If no resolution within 24-48 hours, will consider consulting Dr. Shawn Mathis (4) Acute kidney injury Is this a current diagnosis for this admission?: Yes Plan: Improving 1.7-->1.25-->1.5 No known history of kidney disease MCKENZIE likely stemming from sepsis Continue maintenance IVF Monitor renal function with daily chemistries (5) Hypertension Qualifiers: Hypertension type: essential hypertension Qualified Code(s): I10 - E ssential (primary) hypertension Is this a current diagnosis for this admission?: Yes Plan: PMH HTN Good blood pressure control with home dose hydrochlorothiazide and amlodipine (6) Hypokalemia Is this a current diagnosis for this admission?: Yes Plan: Improving 3.2-->3.3 Likely stemming from daily HCTZ use Monitor with daily chemistries and replace electrolytes as needed (7) Morbid obesity with BMI of 40.0-44.9, adult Is this a current diagnosis for this admission?: Yes Plan: BMI is 43. Weight management via diet control - Time Time Spent with patient: 15-24 minutes Medications reviewed and adjusted accordingly: Yes Anticipated discharge: Home Within: within 72 hours - Inpatient Certification Based on my medical assessment, after consideration of the patient's comorbidities, presenting symptoms, or acuity I expect that the services needed warrant INPATIENT care.: Yes I certify that my determination is in accordance with my understanding of Medicare's requirements for reasonable and necessary INPATIENT services [42 CFR 412.3e].: Yes Medical Necessity: Need for IV Antibiotics, Risk of Complication if Not Cared For in Hospital
--- NOTE | 2019-01-24 14:28 | PDOC PROGRESS REPORT ---
Subjective Progress Note for:: 01/23/19 Subjective:: THIS IS A LATE ENTRY CHAD MYERS is a very pleasant 58 year old female with PMH HTN and stage I HER-2 positive breast cancer, received chemotherapy plus Herceptin/Perjeta initially, but last true chemotherapy was about 7 to 8 months ago, Herceptin/Perjeta was last given about 3 weeks ago, this was her final treatment. The patient was admitted to [facility] for cellulitis and lymphedema to the RUE. Patient was seen this morning on rounds, she is resting comfortably in bedside recliner, daughter is at the bedside. The daughter expressed concern because (according to her) the RUE erythema appears "worse today" when compared to yesterday. I explained to the patient and her daughter that, oftentimes, with cellulitis treatment, the affected area appears worse once antibiotics have been initiated. Leukocytosis is improving 16-->12, patient remains afebrile and nontoxic-appearing. Venous Doppler studies pending for DVT. Instructed the patient that she needs to elevate her RUE. Plan to keep patient at [facility] for persistent lymphedema and cellulitis of the RUE. Reason For Visit: CELLULITIS RIGHT ARM AND CHEST, SEPSIS, ACUTE Physical Exam Vital Signs: Temp Pulse Resp BP Pulse Ox 98.0 F 75 16 128/53 H 100 01/24/19 11:47 01/24/19 14:00 01/24/19 11:47 01/24/19 11:47 01/24/19 11:47 Intake & Output 01/23/19 01/24/19 01/25/19 06:59 06:59 06:59 Intake Total 3440 1448 440 Output Total 300 Balance 3140 1448 440 Weight 103 kg 107.1 kg General appearance: PRESENT: no acute distress, morbidly obese Head exam: PRESENT: atraumatic, normocephalic Eye exam: PRESENT: conjunctiva pink, EOMI, PERRLA. ABSENT: scleral icterus Ear exam: PRESENT: normal external ear exam Mouth exam: PRESENT: moist, tongue midline Neck exam: ABSENT: carotid bruit, JVD, lymphadenopathy, thyromegaly Respiratory exam: PRESENT: clear to auscultation yg, symmetrical, unlabored. ABSENT: rales, rhonchi, wheezes Cardiovascular exam: PRESENT: RRR. ABSENT: diastolic murmur, rubs, systolic murmur Pulses: PRESENT: normal radial pulses, normal dorsalis pedis pul Vascular exam: PRESENT: normal capillary refill GI/Abdominal exam: PRESENT: normal bowel sounds, soft. ABSENT: distended, guarding, mass, organolmegaly, rebound, tenderness Rectal exam: PRESENT: deferred Extremities exam: PRESENT: full ROM, +1 edema, +2 edema, other - ERYTHEMA AND EDEMA TO RUE EXTENDING TO THE AXILLA, SHOULDER AND ANTERIOR CHEST WALL. ABSENT: calf tenderness, clubbing, pedal edema Musculoskeletal exam: PRESENT: ambulatory, full ROM Neurological exam: PRESENT: alert, awake, oriented to person, oriented to place, oriented to time, oriented to situation Psychiatric exam: PRESENT: appropriate affect, normal mood Skin exam: PRESENT: dry, erythema - RUE, intact, warm. ABSENT: cyanosis, rash Results Laboratory Results: 01/24/19 10:00 01/24/19 10:00 01/24/19 01/24/19 10:00 10:00 WBC 14.8 H RBC 3.61 L Hgb 9.0 L Hct 27.4 L MCV 76 L MCH 24.9 L MCHC 32.7 RDW 14.2 H Plt Count 289 Sodium 137.5 Potassium 3.3 L Chloride 102 Carbon Dioxide 25 Anion Gap 11 BUN 19 Creatinine 1.50 H Est GFR ( Amer) 43 L Est GFR (Non-Af Amer) 36 L Glucose 150 H Calcium 8.9 Phosphorus 3.1 Magnesium 2.0 01/22/19 20:29 Clean Catch Midstream Urine Culture - Final Mixed Urogenital Ana Rosa Impressions: Venous Doppler Study 01/22/19 00:00 IMPRESSION: NO EVIDENCE DVT OR SVT RIGHT ARM. Chest X-Ray 01/22/19 15:20 IMPRESSION: NO ACUTE RADIOGRAPHIC FINDING IN THE CHEST. Chest CT 01/22/19 16:53 IMPRESSION: Status post right mastectomy. Left breast nodular density is of u ncertain etiology or significance; recommend correlation with mammographic imaging. No evidence of pulmonary embolus, pulmonary metastases, or acute inflammatory process. Abdomen/Pelvis CT 01/22/19 16:55 IMPRESSION: No evidence of acute intra-abdominal infectious/inflammatory process. No acute findings. Status: Imported from PACS Assessment and Plan - Diagnosis (1) Sepsis Qualifiers: Sepsis type: sepsis due to unspecified organism Qualified Code(s): A41.9 - Sepsis, unspecified organism Is this a current diagnosis for this admission?: Yes Plan: Resolving Presented with tachycardia, fever, leukocytosis, MCKENZIE and acute elevation of serum bilirubin Blood cultures pending Empiric antibiotic coverage with IV Zosyn and vancomycin PMH breast CA, recently completed chemotherapy. Broad-spectrum ABX coverage is warranted given her immunosuppression (2) Cellulitis Qualifiers: Site of cellulitis: extremity Site of cellulitis of extremity: upper extremity Laterality: right Qualified Code(s): L03.113 - Cellulitis of right upper limb Is this a current diagnosis for this admission?: Yes Plan: Extending from the proximal forearm to the upper arm into the right axilla Tender towards anterior chest wall Very likely to be lymphedema cellulitis given her lymph node removal during recent mastectomy Broad-spectrum antibiotic coverage with Zosyn and vancomycin Monitor for evidence of Port-A-Cath infection (3) Lymphedema Is this a current diagnosis for this admission?: Yes Plan: Present in the RUE following mastectomy with lymph node removal Encouraged elevation of extremity at all times Venous doppler studies negative for DVT If no resolution within 48-72 hours, will consider consulting Dr. Shawn Mathis (4) Acute kidney injury Is this a current diagnosis for this admission?: Yes Plan: Improving 1.7-->1.25 No known history of kidney disease MCKENZIE likely stemming from sepsis Continue maintenance IVF Monitor renal function with daily chemistries (5) Hypertension Qualifiers: Hypertension type: essential hypertension Qualified Code(s): I10 - Essential (primary) hypertension Is this a current diagnosis for this admission?: Yes Plan: [facility] HTN Good blood pressure control with home dose hydrochlorothiazide and amlodipine (6) Hypokalemia Is this a current diagnosis for this admission?: Yes Plan: Improving 3.2-->3.3 Likely stemming from daily HCTZ use Monitor with daily chemistries and replace electrolytes as needed (7) Morbid obesity with BMI of 40.0-44.9, adult Is this a current diagnosis for this admission?: Yes Plan: BMI is 43. Weight management via diet control - Time Time Spent with patient: 15-24 minutes Medications reviewed and adjusted accordingly: Yes Anticipated discharge: Home Within: within 72 hours - Inpatient Certification Based on my medical assessment, after consideration of the patient's comorbidities, presenting symptoms, or acuity I expect that the services needed warrant INPATIENT care.: Yes I certify that my determination is in accordance with my understanding of Medicare's requirements for reasonable and necessary INPATIENT services [42 CFR 412.3e].: Yes Medical Necessity: Need for IV Antibiotics, Risk of Complication if Not Cared For in Hospital
--- NOTE | 2019-01-24 14:28 | Progress Note Acknowledgement ---
Progress Note Acknowledgement Progess Note Acknowledgement: I, the undersigned member of the medical staff with appropriate privileges and with supervisory authority over [ CASSANDRA ZUNIGA ], a [facility] allied health professional, acknowledge that I have reviewed the progress notes entered on this patient, and in my professional judgment believe that the assessment made and/or any care evidenced was appropriate
[2019-01-24] MEDS: NORMAL SALINE 1000 ML 1,000 ML IV PRN ×2 (14:54→23:15)
[2019-01-25] MEDS: PIPERACILLIN SODIUM/TAZOBACTAM 3.375 GM in NORMAL SALINE 100 ML IV SCH ×4 (06:22→23:06)
[2019-01-25 06:49] LABS: HEMATOCRIT 23.4 % (36.0-47.0); MEAN CORPUSCULAR HEMOGLOBIN 25.5 pg (27.0-33.4); MEAN CORPUSCULAR HGB CONC 33.7 g/dL (32.0-36.0); MEAN CORPUSCULAR VOLUME 76 fl (80-97); PLATELET COUNT 279 10^3/uL (150-450); RED CELL DISTRIBUTION WIDTH 14.5 % (11.5-14.0); WHITE BLOOD COUNT 10.9 10^3/uL (4.0-10.5)
[2019-01-25] MEDS: PANTOPRAZOLE SODIUM 40 MG TABLET.DR PO SCH (07:01)
[2019-01-25 07:04] LABS: ANION GAP 7 (5-19); BLOOD UREA NITROGEN 15 mg/dL (7-20); CALCIUM 8.3 mg/dL (8.4-10.2); CARBON DIOXIDE 25 mmol/L (22-30); CHLORIDE 107 mmol/L (98-107); GLUCOSE 107 mg/dL (75-110); PHOSPHORUS 3.5 mg/dL (2.5-4.5); POTASSIUM 3.8 mmol/L (3.6-5.0); SODIUM 138.6 mmol/L (137-145)
[2019-01-25 07:14] LABS: ABSOLUTE LYMPHOCYTES# (MANUAL) 1.2 10^3/uL (0.5-4.7); ABSOLUTE MONOCYTES # (MANUAL) 0.5 10^3/uL (0.1-1.4); BASOPHILS % (MANUAL) 0 % (0-2); EOSINOPHILS % (MANUAL) 0 % (0-6); LYMPHOCYTES % (MANUAL) 11 % (13-45); MONOCYTES % (MANUAL) 5 % (3-13); SEGMENTED NEUTROPHILS % (MAN) 84 % (42-78); TOTAL CELLS COUNTED 100
[2019-01-25 07:15] LABS: ANISOCYTOSIS 1+; BURR CELLS 1+; HYPOCHROMASIA 1+; PLATELET COMMENT ADEQUATE; POLYCHROMASIA 1+
[2019-01-25 07:16] LABS: HEMOGLOBIN 7.9 g/dL (12.0-15.5)
[2019-01-25] MEDS: AMLODIPINE BESYLATE 10 MG TABLET PO SCH (09:43)
[2019-01-25] MEDS: HYDROCHLOROTHIAZIDE 25 MG TABLET PO SCH (09:43)
[2019-01-25] MEDS: LETROZOLE 2.5 MG TABLET PO SCH (09:43)
[2019-01-25] MEDS: NORMAL SALINE 1000 ML 1,000 ML IV PRN ×2 (09:44→22:41)
--- NOTE | 2019-01-25 11:52 | PDOC PROGRESS REPORT ---
Subjective Progress Note for:: 01/25/19 Subjective:: No acute events overnight, arm and chest is looking much better. Hemoglobin had dropped to 7.9 but it was a line draw so it may have been diluted. Her hemoglobin should not drop because of chemotherapy, she has not received real chemotherapy for at least 6 months. She was on Herceptin which should not cause a hemoglobin drop. Reason For Visit: CELLULITIS RIGHT ARM AND CHEST, SEPSIS, ACUTE Physical Exam Vital Signs: Temp Pulse Resp BP Pulse Ox 97.7 F 80 16 130/74 H 98 01/25/19 07:42 01/25/19 07:42 01/25/19 07:42 01/25/19 07:42 01/25/19 07:42 Intake & Output 01/24/19 01/25/19 01/26/19 06:59 06:59 06:59 Intake Total 1448 2205 1100 Balance 1448 2205 1100 Weight 107.1 kg 106.1 kg General appearance: PRESENT: no acute distress, well-developed, well-nourished Head exam: PRESENT: atraumatic, normocephalic Eye exam: PRESENT: conjunctiva pink, EOMI, PERRLA. ABSENT: scleral icterus Ear exam: PRESENT: normal external ear exam Mouth exam: PRESENT: moist, tongue midline Neck exam: ABSENT: carotid bruit, JVD, lymphadenopathy, thyromegaly Respiratory exam: PRESENT: clear to auscultation yg. ABSENT: rales, rhonchi, wheezes Cardiovascular exam: PRESENT: RRR. ABSENT: diastolic murmur, rubs, systolic murmur Pulses: PRESENT: normal dorsalis pedis pul Vascular exam: PRESENT: normal capillary refill GI/Abdominal exam: PRESENT: normal bowel sounds, soft. ABSENT: distended, guarding, mass, organolmegaly, rebound, tenderness Rectal exam: PRESENT: deferred Extremities exam: PRESENT: full ROM. ABSENT: calf tenderness, clubbing, pedal edema Neurological exam: PRESENT: alert, awake, oriented to person, oriented to place, oriented to time, oriented to situation, CN II-XII grossly intact. ABSENT: motor sensory deficit Psychiatric exam: PRESENT: appropriate affect, normal mood. ABSENT: homicidal ideation, suicidal ideation Skin exam: PRESENT: dry, intact, warm. ABSENT: cyanosis, rash Results Laboratory Results: 01/25/19 06:24 01/25/19 06:24 01/25/19 01/25/19 06:24 06:24 WBC 10.9 H RBC 3.10 L Hgb 7.9 L Hct 23.4 L MCV 76 L MCH 25.5 L MCHC 33.7 RDW 14.5 H Plt Count 279 Seg Neutrophils % Not Reportable Lymphocytes % Not Reportable Monocytes % Not Reportable Eosinophils % Not Reportable Basophils % Not Reportable Absolute Neutrophils Not Reportable Absolute Lymphocytes Not Reportable Absolute Monocytes Not Reportable Absolute Eosinophils Not Reportable Absolute Basophils Not Reportable Sodium 138.6 Potassium 3.8 Chloride 107 Carbon Dioxide 25 Anion Gap 7 BUN 15 Creatinine 1.38 H Est GFR ( Amer) 48 L Est GFR (Non-Af Amer) 39 L Glucose 107 Calcium 8.3 L Phosphorus 3.5 Magnesium 1.8 01/22/19 20:29 Clean Catch Midstream Urine Culture - Final Mixed Urogenital Ana Rosa Impressions: Venous Doppler Study 01/22/19 00:00 IMPRESSION: NO EVIDENCE DVT OR SVT RIGHT ARM. Chest X-Ray 01/22/19 15:20 IMPRESSION: NO ACUTE RADIOGRAPHIC FINDING IN THE CHEST. Chest CT 01/22/19 16:53 IMPRESSION: Status post right mastectomy. Left breast nodular density is of uncertain etiology or significance; recommend correlation with mammographic imaging. No evidence of pulmonary embolus, pulmonary metastases, or acute inflammatory process. Abdomen/Pelvis CT 01/22/19 16:55 IMPRESSION: No evidence of acute intra-abdominal infectious/inflammatory process. No acute findings. Assessment & Plan - Diagnosis (1) Cellulitis Qualifiers: Site of cellulitis: extremity Site of cellulitis of extremity: upper extremity Laterality: right Qualified Code(s): L03.113 - Cellulitis of right upper limb Is this a current diagnosis for this admission?: Yes Plan: Improved, if improvement continues by tomorrow probable discharge with antibiotic regimen (2) Sepsis Qualifiers: Sepsis type: sepsis due to unspecified organism Qualified Code(s): A41.9 - Sepsis, unspecified organism Is this a current diagnosis for this admission?: Yes Plan: Largely resolved, plan as above (3) Acute kidney injury Is this a current diagnosis for this admission?: Yes Plan: Improved, secondary to cellulitis/sepsis (4) Breast cancer Qualifiers: Breast location: upper outer quadrant of breast Estrogen receptor status: negative Patient sex: female Laterality: right Qualified Code(s): C50.411 - Malignant neoplasm of upper-outer quadrant of right female breast; Z17.1 - Estrogen receptor negative status [ER-] Is this a current diagnosis for this admission?: Yes Plan: Completed all treatment, today had a long discussion about lymphedema with the patient and family. Ultimately after the infection is fully resolved she will need referral to physical therapy for lymphedema treatment. - Time Time Spent with patient: 35 or more minutes - Inpatient Certification Based on my medical assessment, after consideration of the patient's comorbidities, presenting symptoms, or acuity I expect that the services needed warrant INPATIENT care.: Yes I certify that my determination is in accordance with my understanding of Medicare's requirements for reasonable and necessary INPATIENT services [42 CFR 412.3e].: Yes Medical Necessity: Need for IV Antibiotics, Risk of Complication if Not Cared For in Hospital
[2019-01-25] MEDS: VANCOMYCIN HCL 1,250 MG in DEXTROSE 5%-WATER 250 ML IV SCH (13:58)
--- NOTE | 2019-01-25 16:35 | PDOC PROGRESS REPORT ---
Subjective Progress Note for:: 01/25/19 Subjective:: CHAD MYERS is a very pleasant 58 year old female with PMH HTN and stage I HER-2 positive breast cancer, received chemotherapy plus Herceptin/Perjeta initially, but last true chemotherapy was about 7 to 8 months ago, Herceptin/Perjeta was last given about 3 weeks ago, this was her final treatment. The patient was admitted to [facility] for cellulitis and lymphedema to the RUE. Patient was seen this morning on rounds, she is resting comfortably in bedside recliner, friend is at the bedside. Erythema and swelling seem to have decreased dramatically today. No longer extends to the shoulder or anterior chest wall. Localized to the extremity only, forearm and upper arm. Small fluid-filled pustule still remain in the antecubital area but decreasing in number. Patient states that her pain and itching has decreased. Instructed the patient that she needs to elevate her RUE. Plan to keep patient at [facility] for cellulitis of the RUE. If improvement continues, plan for discharge home tomorrow. Reason For Visit: CELLULITIS RIGHT ARM AND CHEST, SEPSIS, ACUTE Physical Exam Vital Signs: Temp Pulse Resp BP Pulse Ox 97.9 F 69 16 130/63 H 99 01/25/19 12:03 01/25/19 14:00 01/25/19 12:03 01/25/19 12:03 01/25/19 12:03 Intake & Output 01/24/19 01/25/19 01/26/19 06:59 06:59 06:59 Intake Total 1448 2205 1947 Balance 1448 2205 1947 Weight 107.1 kg 106.1 kg General appearance: PRESENT: no acute distress, obese Head exam: PRESENT: atraumatic, normocephalic Eye exam: PRESENT: conjunctiva pink, EOMI, PERRLA. ABSENT: scleral icterus Ear exam: PRESENT: normal external ear exam Mouth exam: PRESENT: moist, tongue midline Neck exam: ABSENT: carotid bruit, JVD, lymphadenopathy, thyromegaly Respiratory exam: PRESENT: clear to auscultation yg, symmetrical, unlabored. ABSENT: rales, rhonchi, wheezes Cardiovascular exam: PRESENT: RRR. ABSENT: diastolic murmur, rubs, systolic murmur Pulses: PRESENT: normal radial pulses, normal dorsalis pedis pul Vascular exam: PRESENT: normal capillary refill GI/Abdominal exam: PRESENT: normal bowel sounds, soft. ABSENT: distended, guarding, mass, organolmegaly, rebound, tenderness Rectal exam: PRESENT: deferred Extremities exam: PRESENT: full ROM. ABSENT: calf tenderness, clubbing, pedal edema Musculoskeletal exam: PRESENT: full ROM Neurological exam: PRESENT: alert, awake, oriented to person, oriented to place, oriented to time, oriented to situation Psychiatric exam: PRESENT: appropriate affect, normal mood. ABSENT: homicidal ideation, suicidal ideation Skin exam: PRESENT: dry, erythema - Forearm and upper arm area, intact, warm. ABSENT: cyanosis, rash Results Laboratory Results: 01/25/19 06:24 01/25/19 06:24 01/25/19 01/25/19 06:24 06:24 WBC 10.9 H RBC 3.10 L Hgb 7.9 L Hct 23.4 L MCV 76 L MCH 25.5 L MCHC 33.7 RDW 14.5 H Plt Count 279 Seg Neutrophils % Not Reportable Lymphocytes % Not Reportable Monocytes % Not Reportable Eosinophils % Not Reportable Basophils % Not Reportable Absolute Neutrophils Not Reportable Absolute Lymphocytes Not Reportable Absolute Monocytes Not Reportable Absolute Eosinophils Not Reportable Absolute Basophils Not Reportable Sodium 138.6 Potassium 3.8 Chloride 107 Carbon Dioxide 25 Anion Gap 7 BUN 15 Creatinine 1.38 H Est GFR ( Amer) 48 L Est GFR (Non-Af Amer) 39 L Glucose 107 Calcium 8.3 L Phosphorus 3.5 Magnesium 1.8 Impressions: Venous Doppler Study 01/22/19 00:00 IMPRESSION: NO EVIDENCE DVT OR SVT RIGHT ARM. Chest X-Ray 01/22/19 15:20 IMPRESSION: NO ACUTE RADIOGRAPHIC FINDING IN THE CHEST. Chest CT 01/22/19 16:53 IMPRESSION: Status post right mastectomy. Left breast nodular density is of uncertain etiology or significance; recommend correlation with mammographic imaging. No evidence of pulmonary embolus, pulmonary metastases, or acute inflammatory process. Abdomen/Pelvis CT 01/22/19 16:55 IMPRESSION: No evidence of acute intra-abdominal infectious/inflammatory process. No acute findings. Status: Imported from PACS Assessment and Plan - Diagnosis (1) Sepsis Qualifiers: Sepsis type: sepsis due to unspecified organism Qualified Code(s): A41.9 - Sepsis, unspecified organism Is this a current diagnosis for this admission?: Yes Plan: Resolving Presented with tachycardia, fever, leukocytosis, MCKENZIE and acute elevation of serum bilirubin Blood cultures pending Empiric antibiotic coverage with IV Zosyn and vancomycin PMH breast CA, recently completed chemotherapy. Broad-spectrum ABX coverage is warranted given her immunosuppression (2) Cellulitis Qualifiers: Site of cellulitis: extremity Site of cellulitis of extremity: upper extremity Laterality: right Qualified Code(s): L03.113 - Cellulitis of right upper limb Is this a current diagnosis for this admission?: Yes Plan: Extending from the proximal forearm to the upper arm. No longer extending to the axilla. Anterior chest wall nontender Very likely to be lymphedema cellulitis given her lymph node removal during recent mastectomy Broad-spectrum antibiotic coverage with Zosyn and vancomycin No evidence of of Port-A-Cath infection (3) Lymphedema Is this a current diagnosis for this admission?: Yes Plan: Present in the RUE following mastectomy with lymph node removal Encouraged elevation of extremity at all times Venous doppler studies negative for DVT Edema seems to be resolving, will recommend compression sleeves at discharge (4) Acute kidney injury Is this a current diagnosis for this admission?: Yes Plan: Improving 1.7-->1.3 No known history of kidney disease MCKENZIE likely stemming from sepsis Continue maintenance IVF Monitor renal function with daily chemistries (5) Hypertension Qualifiers: Hypertension type: essential hypertension Qualified Code(s): I10 - Essential (primary) hypertension Is this a current diagnosis for this admission?: Yes Plan: PMH HTN Good blood pressure control with home dose hydrochlorothiazide and amlodipine (6) Hypokalemia Is this a current diagnosis for this admission?: Yes Plan: Improving 3.2-->3.3 Likely stemming from daily HCTZ use Monitor with daily chemistries and replace electrolytes as needed (7) Morbid obesity with BMI of 40.0-44.9, adult Is this a current diagnosis for this admission?: Yes Plan: BMI is 43. Weight management via diet control - Time Time Spent with patient: 15-24 minutes Medications reviewed and adjusted accordingly: Yes Anticipated discharge: Home Within: within 24 hours - Inpatient Certification Based on my medical assessment, after consideration of the patient's comorbidities, presenting symptoms, or acuity I expect that the services needed warrant INPATIENT care.: Yes I certify that my determination is in accordance with my understanding of Medicare's requirements for reasonable and necessary INPATIENT services [42 CFR 412.3e].: Yes Medical Necessity: Need for IV Antibiotics
[2019-01-26] MEDS: PANTOPRAZOLE SODIUM 40 MG TABLET.DR PO SCH (05:06)
[2019-01-26] MEDS: PIPERACILLIN SODIUM/TAZOBACTAM 3.375 GM in NORMAL SALINE 100 ML IV SCH (05:06)
[2019-01-26] MEDS: HYDROCHLOROTHIAZIDE 25 MG TABLET PO SCH (10:27)
[2019-01-26] MEDS: AMLODIPINE BESYLATE 10 MG TABLET PO SCH (10:27)
[2019-01-26] MEDS: LETROZOLE 2.5 MG TABLET PO SCH (10:28)
[2019-01-26] MEDS ORDERED: SULFAMETHOXAZOLE/TRIMETHOPRIM 800-160 MG TABLET PO SCH (11:00)
[2019-01-26 11:21] VITALS: BP 131/49
== END 2019-01-26 12:09 | disposition home or self-care (01) | DRG 872 ==
LOC: ER 14:37 → EH 19:18 → 3S 21:30 → 3N 01-23 12:49
PROVIDERS: ADMIT Hospitalist; ATTEND Hospitalist
DX: A41.9 Sepsis, unspecified organism (principal); L03.113 Cellulitis of right upper limb; N17.9 Acute kidney failure, unspecified; Z68.41 Body mass index [BMI] 40.0-44.9, adult; I10 Essential (primary) hypertension; I44.7 Left bundle-branch block, unspecified; E87.6 Hypokalemia; E66.01 Morbid (severe) obesity due to excess calories
CPT/HCPCS: 36415; 36591; 71045; 71260; 74177; 80048; 80053; 81001; 82962; 83605; 83735; 84100; 85025; 85027; 85610; 86140; 87040; 87086; 93971; 96365; 96367; 99285; J0610; J1642; J2543; J3370; J3475; J3480; J3490; J7030; J7050; J7060

== ENCOUNTER → 2019-06-25 | Outpatient (CLI) | payer MEDICAID ==
--- NOTE | 2019-06-25 10:22 | WOMENS IMAGING REPORT ---
EXAM DESCRIPTION: 3D DX MAMMO LEFT UNILAT COMPLETED DATE/TIME: 06/25/2019 9:45 am REASON FOR STUDY: N63 LUMP/PALP/SWELLING C50.411 MALIG NEOPLM OF UPPER-OUTER QUADRANT OF RIGHT FEMA LE COMPARISON: 2017 EXAM PARAMETERS: Standard craniocaudal and mediolateral oblique images of the breast recorded using digital acquisition and breast tomosynthesis. True lateral view. Read with the assistance of CAD. .[facility] - [employer] Technician Version 9.2 LIMITATIONS: None. FINDINGS: BREAST LATERALITY: left MASSES: No suspicious masses. CALCIFICATIONS: No new or suspicious calcifications. ARCHITECTURAL DISTORTION: None. ASYMMETRY: None noted. OTHER: No other significant findings. IMPRESSION: Stable mammographic pattern. BREAST DENSITY: b. There are scattered areas of fibroglandular density. BIRAD: ASSESSMENT: 2 Benign findings. RECOMMENDATION: RECOMMENDED FOLLOW UP: Annual mammographic follow-up. SPECIFIC INTERVENTION/IMAGING/CONSULTATION RECOMMENDED:No additional intervention/ imaging/consultati on needed at this time. COMMUNICATION:The imaging findings were not discussed with the patient. Her referring provider has be en notified of the findings. COMMENT: The patient has been notified of the results by letter per [place] requirements. Additional no tification policies are in place for contacting patient with suspicious or incomplete findings. Quality ID #[id number]: The [employer] recommends an annual screening mammogram for women aged 40 years or over. This facility utilizes a reminder system to ensure that all patients receive reminder letters, and/or direct phone calls for appointments. This includes reminders for routine scr eening mammograms, diagnostic mammograms, or other Breast Imaging Interventions when appropriate. Th is patient will be placed in the appropriate reminder system. TECHNICAL DOCUMENTATION: FINDING NUMBER: (1) ASSESSMENT: (1) JOB ID: [id number] [employer]- All Rights Reserved Reading location - IP/workstation name: [email or web address]
== END ==
LOC: WI 08:40
PROVIDERS: ATTEND Internal Medicine Hematology & Oncology
DX: C50.411 Malignant neoplasm of upper-outer quadrant of right female breast (principal)
CPT/HCPCS: 77065

== ENCOUNTER 2019-12-17 14:38 | Inpatient (IN) | payer MEDICARE, MEDICAID ==
--- NOTE | 2019-12-17 14:51 | ER Document Report ---
ED Medical Screen (RME) - General Stated Complaint: FEVER Time Seen by Provider: 12/17/19 14:47 Primary Care Provider: RHIANNON SCHMIDT MD [ACTIVE STAFF] - Follow up as needed Mode of Arrival: Ambulatory Information source: Dr. Ballard Notes: This provider was contacted via phone by MICHAEL Barr who works at the [facility]. Patient has been sent over here with complaints of right arm shoulder upper back red swollen warm. The provider reports she just woke up with the symptoms at approximately 0300. Patient is a history of breast cancer with last chemo in 2019. Upon arrival patient did have a temperature so she was sent to the [facility] ED rooms. physical exam could not be performed due to [facility] 19 isolation protocols. I have greeted and performed a rapid initial assessment of this patient. A comprehensive ED assessment and evaluation of the patient, analysis of test results and completion of the medical decision making process will be conducted by additional ED providers. TRAVEL OUTSIDE OF THE [place] IN LAST 30 DAYS: No - Related Data Allergies/Adverse Reactions: No Known Allergies Allergy (Verified 12/17/19 15:46) Past Medical History - Past Medical History Cardiac Medical History: Reports: Hx Hypertension - medicated Denies: Hx Coronary Artery Disease, Hx Heart Attack Pulmonary Medical History: Denies: Hx Asthma, Hx Bronchitis, Hx COPD, Hx Pneumonia Neurological Medical History: Denies: Hx Cerebrovascular Accident, Hx Seizures Endocrine Medical History: Denies: Hx Hypothyroidism Renal/ Medical History: Denies: Hx Peritoneal Dialysis Malignancy Medical History: Reports: Hx Breast Cancer GI Medical History: Denies: Hx Gastroesophageal Reflux Disease, Hx Hepatitis, Hx Hiatal Hernia, Hx Ulcer Musculoskeltal Medical History: Denies Hx Arthritis Psychiatric Medical History: Denies: Hx Dementia, Hx Depression Infectious Medical History: Denies: Hx Hepatitis Past Surgical History: Reports: Hx Breast Surgery - benign tumors removed x3 from the left breast, Hx Cholecystectomy, Hx Mastectomy - RIGHT, Other - Port-A-Cath placement. Denies: Hx Hysterectomy, Hx Open Heart Surgery, Hx Pacemaker - Immunizations Hx Diphtheria, Pertussis, Tetanus Vaccination: Yes - ABOUT AT 10 YEARS Physical Exam - Vital signs Vitals: Temp Pulse Resp BP Pulse Ox 101 F H 108 H 18 149/94 H 97 12/17/19 15:48 12/17/19 15:48 12/17/19 15:48 12/17/19 15:48 12/17/19 15:48 Course - Vital Signs Vital signs: Temp Pulse Resp BP Pulse Ox 101 F H 108 H 18 149/94 H 97 12/17/19 15:48 12/17/19 15:48 12/17/19 15:48 12/17/19 15:48 12/17/19 15:48 Doctor's Discharge - Discharge Referrals: RHIANNON SCHMIDT MD [ACTIVE STAFF] - Follow up as needed
[2019-12-17] MEDS ORDERED: ACETAMINOPHEN 325 MG TABLET PO ONE (16:09)
--- NOTE | 2019-12-17 16:43 | ER Document Report ---
Entered by PRAFUL HOANG SCRIBE 12/17/19 1607 Acting as scribe for:RAYMOND HINES MD ED General - General Chief Complaint: Arm Pain Stated Complaint: FEVER Time Seen by Provider: 12/17/19 14:47 Primary Care Provider: RHIANNON SCHMIDT MD [ACTIVE STAFF] - Follow up as needed Mode of Arrival: Ambulatory Information source: Patient Notes: This 59-year-old female presents to the emergency department complaining of right shoulder pain that began this morning at 2:30 AM. Patient describes that she noticed the pain when she rolled over in bed this morning. Patient reports associated erythema in shoulder and right forearm. Patient reports abdominal pain yesterday which was resolved with medication and poor appetite. Patient states that she was unaware of her fever that was noted at triage on arrival. Patient denies cough and throat pain. Patient reports that she had breast cancer which required a mastectomy of her right breast. TRAVEL OUTSIDE OF THE [place] IN LAST 30 DAYS: No - Related Data Allergies/Adverse Reactions: No Known Allergies Allergy (Verified 12/17/19 15:46) Home Medications: Letrozole Past Medical History - General Information source: Patient, Office - Social History Smoking Status: Never Smoker Cigarette use (# per day): No Chew tobacco use (# tins/day): No Frequency of alcohol use: None Drug Abuse: None Family History: Hypertension, Malignancy, Other Patient has homicidal ideation: No - Past Medical History Cardiac Medical History: Reports: Hx Hypertension - medicated Malignancy Medical History: Reports: Hx Breast Cancer Past Surgical History: Reports: Hx Breast Surgery - benign tumors removed x3 from the left breast, Hx Cholecystectomy, Hx Mastectomy - RIGHT, Other - Port-A-Cath placement - Immunizations Hx Diphtheria, Pertussis, Tetanus Vaccination: Yes - ABOUT AT 10 YEARS Review of Systems - Review of Systems Constitutional: See HPI, Fever EENT: No symptoms reported Cardiovascular: No symptoms reported Respiratory: No symptoms reported Gastrointestinal: See HPI, Abdominal pain, Poor appetite Genitourinary: No symptoms reported Female Genitourinary: No symptoms reported Musculoskeletal: See HPI, Other - Right shoulder pain Skin: See HPI, Other - Right forearm erythema Hematologic/Lymphatic: No symptoms reported Neurological/Psychological: No symptoms reported -: Yes All other systems reviewed and negative Physical Exam - Vital signs Vitals: Temp Pulse Resp BP Pulse Ox 101 F H 108 H 18 149/94 H 97 12/17/19 15:48 12/17/19 15:48 12/17/19 15:48 12/17/19 15:48 12/17/19 15:48 - General General appearance: Appears well In distress: None - HEENT Head: Normocephalic, Atraumatic Eyes: Normal Extraocular movements intact: Yes Pupils: PERRL - Respiratory Respiratory status: No respiratory distress Chest status: Nontender Breath sounds: Normal Notes: Previous right mastectomy. - Cardiovascular Rhythm: Tachycardia Murmur: Yes Systolic murmur grade 1-6: 2 - Abdominal Inspection: Obese Distension: No distension Bowel sounds: Normal - Back Back: Normal, Nontender - Extremities General upper extremity: Tender, Edema, Normal color - Erythema and chronic edema on the dorsal right forearm with associated warmth. Erythema extends up to right shoulder that has associated warmth. This warmth extends to the anterior chest wall. General lower extremity: Normal inspection, Nontender - Neurological Cognition: Normal Orientation: AAOx4 - Psychological Associated symptoms: Normal affect, Normal mood - Skin Skin Temperature: Hot Skin Moisture: Dry Skin Color: Erythema - see upper extremity note Course - Vital Signs Vital signs: Temp Pulse Resp BP Pulse Ox 101 F H 108 H 18 149/94 H 97 12/17/19 15:48 12/17/19 15:48 12/17/19 15:48 12/17/19 15:48 12/17/19 15:48 - Laboratory Result Diagrams: 12/17/19 16:49 12/17/19 16:49 Laboratory results interpreted by me: 12/17/19 12/17/19 16:49 16:49 WBC 21.9 H Hgb 11.0 L Hct 33.4 L MCV 76 L MCH 25.2 L Seg Neuts % (Manual) 88 H Lymphocytes % (Manual) 5 L Monocytes % (Manual) 2 L Abs Neuts (Manual) 20.4 H Sodium 131.9 L BUN 25 H Creatinine 1.39 H Est GFR ( Amer) 47 L Est GFR (MDRD) Non-Af 39 L Glucose 128 H - Diagnostic Test Radiology reviewed: Image reviewed, Reports reviewed - Chest x-ray does not show acute findings. Discharge - Discharge Clinical Impression: Lymphedema Cellulitis Qualifiers: Site of cellulitis: extremity Site of cellulitis of extremity: upper extremity Laterality: right Qualified Code(s): L03.113 - Cellulitis of right upper limb Leukocytosis Qualifiers: Leukocytosis type: bandemia Qualified Code(s): D72.825 - Bandemia Fever Qualifiers: Fever type: unspecified Qualified Code(s): R50.9 - Fever, unspecified Condition: Stable Disposition: ADMITTED INPATIENT Admitting Provider: Tenzin (Hospitalist) Unit Admitted: Medical Floor Referrals: RHIANNON SCHMIDT MD [ACTIVE STAFF] - Follow up as needed I personally performed the services described in the documentation, reviewed and edited the documentation which was dictated to the scribe in my presence, and it accurately records my words and actions.
--- NOTE | 2019-12-17 16:58 | RADIOLOGY REPORT (SQ) ---
6 EXAM DESCRIPTION: CHEST SINGLE VIEW IMAGES COMPLETED DATE/TIME: 12/17/2019 4:47 pm REASON FOR STUDY: fever, right arm cellulitis COMPARISON: 01/22/2019 EXAM PARAMETERS: NUMBER OF VIEWS: One view. TECHNIQUE: Single frontal radiographic view of the chest acquired. RADIATION DOSE: NA LIMITATIONS: None. FINDINGS: LUNGS AND PLEURA: No consolidation or effusions. No pneumothorax. Focal asymmetric opaci ty along the right upper mediastinum is consistent with confluence of shadows including the 1st anter ior rib. MEDIASTINUM AND HILAR STRUCTURES: No masses. Contour normal. HEART AND VASCULAR STRUCTURES: Heart normal in size. Normal vasculature. BONES: No acute findings. HARDWARE: None in the chest. OTHER: No other significant finding. IMPRESSION: No acute findings in the chest. TECHNICAL DOCUMENTATION: JOB ID: [id number] 2010 [employer]- All Rights Reserved Reading location - IP/workstation name: [email or web address]
[2019-12-17 17:05] LABS: HEMATOCRIT 33.4 % (36.0-47.0); MEAN CORPUSCULAR HEMOGLOBIN 25.2 pg (27.0-33.4); MEAN CORPUSCULAR VOLUME 76 fl (80-97); PLATELET COUNT 297 10^3/uL (150-450); RED BLOOD COUNT 4.38 10^6/uL (3.72-5.28); WHITE BLOOD COUNT 21.9 10^3/uL (4.0-10.5)
[2019-12-17 17:31] LABS: ALBUMIN 3.6 g/dL (3.5-5.0); ALKALINE PHOSPHATASE 84 U/L (38-126); ANION GAP 8 (5-19); ASPARTATE AMINO TRANSFERASE 32 U/L (14-36); BILIRUBIN,DIRECT 0.1 mg/dL (0.0-0.4); BILIRUBIN,TOTAL 1.3 mg/dL (0.2-1.3); BLOOD UREA NITROGEN 25 mg/dL (7-20); CALCIUM 8.9 mg/dL (8.4-10.2); CARBON DIOXIDE 26 mmol/L (22-30); CHLORIDE 98 mmol/L (98-107); GLUCOSE 128 mg/dL (75-110); POTASSIUM 4.8 mmol/L (3.6-5.0); TOTAL PROTEIN 7.6 g/dL (6.3-8.2)
[2019-12-17 17:41] LABS: ABSOLUTE LYMPHOCYTES# (MANUAL) 1.1 10^3/uL (0.5-4.7); ABSOLUTE MONOCYTES # (MANUAL) 0.4 10^3/uL (0.1-1.4); BAND NEUTROPHILS % (MANUAL) 5 % (3-5); BASOPHILS % (MANUAL) 0 % (0-2); EOSINOPHILS % (MANUAL) 0 % (0-6); LYMPHOCYTES % (MANUAL) 5 % (13-45); MONOCYTES % (MANUAL) 2 % (3-13); SEGMENTED NEUTROPHILS % (MAN) 88 % (42-78); TOTAL CELLS COUNTED 100
[2019-12-17 17:42] LABS: ANISOCYTOSIS SLIGHT; PLATELET COMMENT ADEQUATE; TOXIC VACUOLATION PRESENT
[2019-12-17] MEDS ORDERED: PIPERACILLIN/TAZOBACTAM 3.375 GM VIAL IV ONE (17:55)
[2019-12-17] MEDS ORDERED: NORMAL SALINE 1000 ML 1,000 ML IV ONE (18:04)
[2019-12-17] MEDS ORDERED: VANCOMYCIN HCL INJ 1000 MG VIAL IV ONE (18:04)
[2019-12-17] MEDS ORDERED: PROMETHAZINE HCL INJ 25 MG/1 ML VIAL IV PRN (19:10)
[2019-12-17] MEDS ORDERED: MAG HYDROX/AL HYDROX/SIMETH SUSP 30 ML UDCUP PO PRN (19:10)
[2019-12-17] MEDS ORDERED: TEMAZEPAM 7.5 MG CAPSULE PO PRN (19:10)
[2019-12-17] MEDS ORDERED: MAGNESIUM HYDROXIDE SUSP 30 ML UDCUP PO PRN (19:10)
[2019-12-17] MEDS ORDERED: ACETAMINOPHEN 325 MG TABLET PO PRN (19:10)
[2019-12-17] MEDS ORDERED: HYDRALAZINE HCL INJ/PF 20 MG/1 ML SDV IV PRN (19:20)
[2019-12-17] MEDS ORDERED: VANCOMYCIN HCL 0 MG in DEXTROSE 5%-WATER 250 ML IV NR (19:30)
--- NOTE | 2019-12-17 19:43 | PDOC H&P ---
History of Present Illness Admission Date/PCP: 12/17/19 18:36 MICHELLE RESTREPO MD Patient complains of: Swollen right arm History of Present Illness: CHAD MYERS is a 59 year old female with a history of breast cancer status post mastectomy and hypertension. I admitted her to the hospital in December 2018 with a similar presentation. She did have a right mastectomy in the past. She reports that she is no longer in hypertensive medication. She states that she was in her usual state of health and within the last 24 to 48 hours she had increased swelling of the upper extremities similar to last year's episode. She felt feverish. With the rapid progression and the similarity to last year's episode she presented to the emergency department. On exam she has marked edema from approximately the distal forearm through the right shoulder encompassing erythema across the right chest right scapular area. She had a low-grade temperature and her white blood cell count was 21,000. Serum creatinine was minimally elevated. She was not hypoxic. She is not e xperiencing significant pain. When I admitted her last year she responded very well to vancomycin and Zosyn. We have started the same. In addition she was given IV fluids. We will continue her letrozole and there is a as needed antihypertensives available if she needs it. Despite the slightly elevated creatinine her GFR is greater than 70. Past Medical History Cardiac Medical History: Reports: Hypertension - medicated Denies: Coronary Artery Disease, Myocardial Infarction Pulmonary Medical History: Denies: Asthma, Bronchitis, Chronic Obstructive Pulmonary Disease (COPD), Pneumonia Neurological Medical History: Denies: Seizures Endocrine Medical History: Denies: Hypothyroidism Malignancy Medical History: Reports: Breast Cancer GI Medical History: Denies: Gastroesophageal Reflux Disease, Hepatitis, Hiatal Hernia Musculoskeltal Medical History: Denies: Arthritis Psychiatric Medical History: Denies: Dementia, Depression Hematology: Reports: Anemia - childbearing years Denies: Sickle Cell Disease Past Surgical History Past Surgical History: Reports: Cholecystectomy, Mastectomy - RIGHT, Other - Port-A-Cath placement Denies: Amputation, Hysterectomy, Pacemaker Social History Information Source: Patient, [facility] Records Lives with: Alone Smoking Status: Never Smoker Electronic Cigarette use?: No Frequency of Alcohol Use: None Hx Recreational Drug Use: No Hx Prescription Drug Abuse: No - Advance Directive Resuscitation Status: Do Not Intubate Surrogate healthcare decision maker:: She has 4 daughters. She is . The daughter's would be the designated decision maker. Family History Family History: Hypertension, Malignancy, Other Parental Family History Reviewed: Yes Children Family History Reviewed: Yes Sibling(s) Family History Reviewed.: Yes Medication/Allergy Home Medications: Letrozole [Femara 2.5 mg Tablet] 2.5 mg PO DAILY 06/18/18 Allergies/Adverse Reactions: No Known Allergies Allergy (Verified 12/17/19 15:46) Review of Systems All systems: reviewed and no additional remarkable complaints except as stated Cardiovascular: PRESENT: edema - Right arm Gastrointestinal: PRESENT: other - Dry mouth Musculoskeletal: PRESENT: other - Swelling mid forearm through the right shoulder Integumentary: PRESENT: erythema Physical Exam Vital Signs: Temp Pulse Resp BP Pulse Ox 99.1 F 108 H 18 149/94 H 97 12/17/19 18:50 12/17/19 15:48 12/17/19 15:48 12/17/19 15:48 12/17/19 15:48 Intake & Output 12/16/19 12/17/19 12/18/19 06:59 06:59 06:59 Weight 110.677 kg General appearance: PRESENT: no acute distress, cooperative, morbidly obese, well-developed Head exam: PRESENT: atraumatic, normocephalic Eye exam: PRESENT: conjunctiva pink, EOMI. ABSENT: scleral icterus Ear exam: PRESENT: normal external ear exam. ABSENT: bleeding, drainage Mouth exam: PRESENT: dry mucosa, tongue midline Teeth exam: ABSENT: poor dentation Neck exam: ABSENT: carotid bruit, JVD, lymphadenopathy, thyromegaly Respiratory exam: PRESENT: clear to auscultation yg, symmetrical, unlabored. ABSENT: accessory muscle use, prolonged expiratory phas, rales, rhonchi, tachypnea, wheezes Cardiovascular exam: PRESENT: RRR, +S1, +S2, systolic murmur - 1/6. ABSENT: diastolic murmur GI/Abdominal exam: PRESENT: soft, other - Pendulous abdomen. ABSENT: guarding, tenderness Rectal exam: PRESENT: deferred Gentrourinary exam: ABSENT: indwelling catheter Extremities exam: ABSENT: pedal edema Musculoskeletal exam: PRESENT: ambulatory, normal inspection. ABSENT: deformity Neurological exam: PRESENT: alert, awake, oriented to person, oriented to place, oriented to time, oriented to situation, CN II-XII grossly intact. ABSENT: altered, motor sensory deficit Psychiatric exam: PRESENT: appropriate affect, normal mood. ABSENT: agitated, anxious Focused psych exam: ABSENT: delusional, paranoid, restlessness Skin exam: PRESENT: erythema, other - Scar from right mastectomy Results Laboratory Results: 12/17/19 16:49 12/17/19 16:49 12/17/19 12/17/19 16:49 16:49 WBC 21.9 H RBC 4.38 Hgb 11.0 L Hct 33.4 L MCV 76 L MCH 25.2 L MCHC 33.0 RDW 14.0 Plt Count 297 Seg Neutrophils % Not Reportable Sodium 131.9 L Potassium 4.8 Chloride 98 Carbon Dioxide 26 Anion Gap 8 BUN 25 H Creatinine 1.39 H Est GFR ( Amer) 47 L Glucose 128 H Calcium 8.9 Total Bilirubin 1.3 AST 32 Alkaline Phosphatase 84 Total Protein 7.6 Albumin 3.6 Impressions: Chest X-Ray 12/17/19 16:09 IMPRESSION: No acute findings in the chest. Assessment and Plan - Diagnosis (1) Cellulitis Qualifiers: Site of cellulitis: extremity Site of cellulitis of extremity: upper extremity Laterality: right Qualified Code(s): L03.113 - Cellulitis of right upper limb Is this a current diagnosis for this admission?: Yes (2) Leukocytosis Qualifiers: Leukocytosis type: bandemia Qualified Code(s): D72.825 - Bandemia Is this a current diagnosis for this admission?: Yes (3) Fever Qualifiers: Fever type: unspecified Qualified Code(s): R50.9 - Fever, unspecified Is this a current diagnosis for this admission?: Yes (4) Lymphedema Is this a current diagnosis for this admission?: Yes (5) Acute kidney injury Is this a current diagnosis for this admission?: Yes (6) Morbid obesity with BMI of 40.0-44.9, adult Is this a current diagnosis for this admission?: Yes (7) History of right breast cancer Is this a current diagnosis for this admission?: Yes - Plan Summary Summary: 12/24/2025 The patient is known to this provider. She had a similar presentation 11 months ago. She responded very well to Zosyn and vancomycin. The right arm is her mastectomy site as she has chronic lymphedema but not the erythema that is present today. She has chronic right arm lymphedema from her mastectomy. She uses a pneumatic compression device at home. I cannot find an open wound on the arm. We will institute vancomycin and Zosyn again as she responded very well to the same regimen last year. The fever and leukocytosis are related to the infection. The serum creatinine is slightly elevated but her GFR is in fact greater than 70. The acute kidney injury should resolve with fluids. We will repeat labs in the morning. With IV fluids her serum creatinine should be normal. With antibiotics her white blood cell count should be lower. Because of the right mastectomy no blood pressures or IVs in the right arm. Patient does have morbid obesity with a BMI of 44.6. Will encourage weight loss. - Time Time Spent with patient: 35 or more minutes Medications reviewed and adjusted accordingly: Yes Anticipated discharge: Home Within: Other - 3 to 4 days
--- NOTE | 2019-12-17 19:48 | ADVANCED CARE ---
- Diagnosis (1) Cellulitis Diagnosis Current: Yes (2) Leukocytosis Diagnosis Current: Yes (3) Fever Diagnosis Current: Yes (4) Lymphedema Diagnosis Current: Yes (5) Acute kidney injury Diagnosis Current: Yes (6) Morbid obesity with BMI of 40.0-44.9, adult Diagnosis Current: Yes (7) History of right breast cancer Diagnosis Current: Yes Attendance: Discussion was held at the bedside with patient Resuscitation Status: Do Not Intubate Discussion: The discussion revolved around her current status choices. I went through the cardiac resuscitation as well as the intubation and ventilation. She does not want intubation. I explained that typically one does not work without the other. She was fine with that. I encouraged her to inform her daughter of her choices. The ideal plan would be to simply [facility] where she could document her choices including long-term issues such as residential placement. She can also designate her primary and secondary decision-makers as opposed to chronologic age of her children. Care Planning Goals: Complete a living will document Document(s) Completed: None Time Spent: 18
[2019-12-17] MEDS: OXYCODONE-ACETAMINOPHEN 5-325 MG TABLET PO PRN (20:06)
[2019-12-17] MEDS: ENOXAPARIN SODIUM INJ 40 MG/0.4 ML DISP.SYRIN SUBCUT SCH (20:06)
[2019-12-17] MEDS: NORMAL SALINE 1000 ML 1,000 ML IV PRN (20:44)
--- NOTE | 2019-12-17 22:29 | EKG REPORT ---
SEVERITY:- ABNORMAL ECG - SINUS TACHYCARDIA LEFT ATRIAL ABNORMALITY LEFT BUNDLE BRANCH BLOCK : Confirmed by: Jennifer Moore MD 17-Dec-2019 22:28:09
[2019-12-17 23:30] LABS: APPEARANCE,URINE SLIGHTLY-CLOUDY; BILIRUBIN,URINE NEGATIVE (NEGATIVE); COLOR,URINE YELLOW; GLUCOSE, URINE NEGATIVE (NEGATIVE); KETONES,URINE NEGATIVE (NEGATIVE); LEUKOCYTE ESTERASE,URINE LARGE (NEGATIVE); NITRITE,URINE NEGATIVE (NEGATIVE); PROTEIN,URINE 30 mg/dL (NEGATIVE); URINE SPECIFIC GRAVITY 1.017; UROBILINOGEN,URINE NEGATIVE mg/dL (<2.0)
[2019-12-18] MEDS: PIPERACILLIN SODIUM/TAZOBACTAM 3.375 GM in NORMAL SALINE 100 ML IV SCH ×5 (00:23→23:55)
[2019-12-18 05:34] LABS: ABSOLUTE BASOPHILS # (AUTO) 0.1 10^3/uL (0.0-0.2); ABSOLUTE LYMPHOCYTES (AUTO) 1.2 10^3/uL (0.5-4.7); ABSOLUTE MONOCYTES (AUTO) 0.5 10^3/uL (0.1-1.4); ABSOLUTE NEUT (AUTO) 14.7 10^3/uL (1.7-8.2); BASOPHILS % (AUTO) 0.4 % (0-2); HEMATOCRIT 29.6 % (36.0-47.0); HEMOGLOBIN 9.8 g/dL (12.0-15.5); LYMPHOCYTES % (AUTO) 7.1 % (13-45); MEAN CORPUSCULAR VOLUME 76 fl (80-97); MONOCYTES % (AUTO) 3.3 % (3-13); PLATELET COUNT 251 10^3/uL (150-450); RED CELL DISTRIBUTION WIDTH 14.2 % (11.5-14.0); SEGMENTED NEUTROPHILS % (AUTO) 89.2 % (42-78); TOTAL CELLS COUNTED % (AUTO) 100 %; WHITE BLOOD COUNT 16.5 10^3/uL (4.0-10.5)
[2019-12-18] MEDS: PANTOPRAZOLE SODIUM 20 MG TABLET.DR PO SCH (05:38)
[2019-12-18 05:49] LABS: ANION GAP 9 (5-19); BLOOD UREA NITROGEN 22 mg/dL (7-20); CALCIUM 8.3 mg/dL (8.4-10.2); CARBON DIOXIDE 21 mmol/L (22-30); CHLORIDE 104 mmol/L (98-107); GLUCOSE 116 mg/dL (75-110); POTASSIUM 3.9 mmol/L (3.6-5.0)
[2019-12-18] MEDS ORDERED: PROMETHAZINE HCL INJ 25 MG/1 ML VIAL IV PRN (08:00)
[2019-12-18] MEDS: LETROZOLE 2.5 MG TABLET PO SCH (09:17)
[2019-12-18] MEDS: NORMAL SALINE 1000 ML 1,000 ML IV PRN ×2 (09:17→20:55)
[2019-12-18] MEDS: OXYCODONE-ACETAMINOPHEN 5-325 MG TABLET PO PRN ×2 (09:17→17:26)
[2019-12-18] MEDS: ENOXAPARIN SODIUM INJ 40 MG/0.4 ML DISP.SYRIN SUBCUT SCH (09:18)
--- NOTE | 2019-12-18 18:24 | PDOC PROGRESS REPORT ---
Subjective Progress Note for:: 12/18/19 Subjective:: No adverse events overnight. No new complaints. Vital signs have been stable. She is feeling well today. She said she feels like that the swelling is gone down her arm some and she still has some redness but that it has improved. Reason For Visit: CELLULITIS, MASTECTOMY SIDE OF BODY, RIGHT ARM, Physical Exam Vital Signs: Temp Pulse Resp BP Pulse Ox 98.6 F 72 16 112/42 L 100 12/18/19 15:31 12/18/19 15:31 12/18/19 15:31 12/18/19 15:31 12/18/19 15:31 Intake & Output 12/17/19 12/18/19 12/19/19 06:59 06:59 06:59 Intake Total 1200 1340 Output Total 400 Balance 800 1340 Weight 113.9 kg General appearance: PRESENT: no acute distress, cooperative, disheveled, morbidly obese Respiratory exam: PRESENT: clear to auscultation yg, symmetrical, unlabored. ABSENT: accessory muscle use, chest wall tenderness, prolonged expiratory phas, rales, rhonchi, tachypnea, wheezes Cardiovascular exam: PRESENT: RRR, +S1, +S2 Pulses: PRESENT: normal carotid pulses Vascular exam: PRESENT: normal capillary refill GI/Abdominal exam: PRESENT: normal bowel sounds, soft. ABSENT: distended, guarding, rebound, tenderness Extremities exam: PRESENT: tenderness - Right upper extremity near the elbow, +2 edema - Right upper extremity. ABSENT: clubbing, pedal edema Musculoskeletal exam: PRESENT: normal inspection. ABSENT: deformity Neurological exam: PRESENT: alert, awake, oriented to person, oriented to place, oriented to situation Psychiatric exam: PRESENT: appropriate affect, normal mood Skin exam: PRESENT: erythema - Right upper extremity both distal and proximal to the elbow Results Laboratory Results: 12/18/19 05:19 12/18/19 05:19 12/17/19 12/18/19 12/18/19 21:45 05:19 05:19 WBC 16.5 H RBC 3.90 Hgb 9.8 L Hct 29.6 L MCV 76 L MCH 25.0 L MCHC 33.0 RDW 14.2 H Plt Count 251 Seg Neutrophils % 89.2 H Sodium 133.9 L Potassium 3.9 Chloride 104 Carbon Dioxide 21 L Anion Gap 9 BUN 22 H Creatinine 1.41 H Est GFR ( Amer) 46 L Glucose 116 H Calcium 8.3 L Magnesium 1.7 Urine Color YELLOW Urine Appearance SLIGHTLY-CLOUDY Urine pH 5.0 Ur Specific [place] 1.017 Urine Protein 30 H Urine Glucose (UA) NEGATIVE Urine Ketones NEGATIVE Urine Blood LARGE H Urine Nitrite NEGATIVE Ur Leukocyte Esterase LARGE H Urine WBC (Auto) 85 Urine RBC (Auto) 17 Impressions: Chest X-Ray 12/17/19 16:09 IMPRESSION: No acute findings in the chest. Assessment and Plan - Diagnosis (1) Cellulitis Qualifiers: Site of cellulitis: extremity Site of cellulitis of extremity: upper extremity Laterality: right Qualified Code(s): L03.113 - Cellulitis of right upper limb Is this a current diagnosis for this admission?: Yes Plan: Currently on broad-spectrum antibiotics. Good results so far. Cultures are pending. (2) Lymphedema Is this a current diagnosis for this admission?: Yes Plan: He has chronic lymphedema after her treatment for breast cancer in the right upper extremity (3) Acute kidney injury Is this a current diagnosis for this admission?: Yes Plan: Her creatinine tends to run a little on the high side, 1.15 to 1.25, and she is elevated a little bit above that at 1.4. This should resolve with treatment of her infection and with some fluids. (4) History of right breast cancer Is this a current diagnosis for this admission?: Yes (5) Hypertension Qualifiers: Hypertension type: essential hypertension Qualified Code(s): I10 - Essential (primary) hypertension Is this a current diagnosis for this admission?: Yes Plan: Well-controlled (6) Morbid obesity with BMI of 40.0-44.9, adult Is this a current diagnosis for this admission?: Yes (7) Sepsis Qualifiers: Sepsis type: sepsis due to unspecified organism Severe sepsis acute organ dysfunction type: acute renal failure Acute renal failure type: with acute tubular necrosis Severe sepsis shock status: without septic shock Qualified Code(s): A41.9 - Sepsis, unspecified organism Is this a current diagnosis for this admission?: Yes Plan: Treatment as previously noted - Plan Summary Summary: 12/24/2025 The patient is known to this provider. She had a similar presentation 11 months ago. She responded very well to Zosyn and vancomycin. The right arm is her mastectomy site as she has chronic lymphedema but not the erythema that is present today. She has chronic right arm lymphedema from her mastectomy. She uses a pneumatic compression device at home. I cannot find an open wound on the arm. We will institute vancomycin and Zosyn again as she responded very well to the same regimen last year. The fever and leukocytosis are related to the infection. The serum creatinine is slightly elevated but her GFR is in fact greater than 70. The acute kidney injury should resolve with fluids. We will repeat labs in the morning. With IV fluids her serum creatinine should be normal. With antibiotics her white blood cell count should be lower. Because of the right mastectomy no blood pressures or IVs in the right arm. Patient does have morbid obesity with a BMI of 44.6. Will encourage weight loss. - Time Time Spent with patient: 15-24 minutes
[2019-12-18] MEDS: VANCOMYCIN HCL 1,000 MG in DEXTROSE 5%-WATER 250 ML IV SCH (20:43)
[2019-12-19] MEDS: PANTOPRAZOLE SODIUM 20 MG TABLET.DR PO SCH (06:29)
[2019-12-19] MEDS: PIPERACILLIN SODIUM/TAZOBACTAM 3.375 GM in NORMAL SALINE 100 ML IV SCH ×4 (06:29→23:47)
[2019-12-19] MEDS: LETROZOLE 2.5 MG TABLET PO SCH (10:46)
[2019-12-19] MEDS: ENOXAPARIN SODIUM INJ 40 MG/0.4 ML DISP.SYRIN SUBCUT SCH (10:46)
[2019-12-19] MEDS: NORMAL SALINE 1000 ML 1,000 ML IV PRN ×2 (11:58→23:47)
--- NOTE | 2019-12-19 16:25 | PDOC PROGRESS REPORT ---
Subjective Progress Note for:: 12/19/19 Subjective:: No adverse events overnight. No new complaints. No fevers. She is eating and drinking without difficulty. She says she feels like the swelling is about the same as it was yesterday. She says she is able to bend her elbow and move her shoulder more so than she was on admission, so she feels better about it in that regard. Reason For Visit: CELLULITIS, MASTECTOMY SIDE OF BODY, RIGHT ARM, Physical Exam Vital Signs: Temp Pulse Resp BP Pulse Ox 98.7 F 84 12 145/75 H 100 12/19/19 12:16 12/19/19 12:16 12/19/19 12:16 12/19/19 12:16 12/19/19 12:16 Intake & Output 12/18/19 12/19/19 12/20/19 06:59 06:59 06:59 Intake Total 1200 4876 340 Output Total 400 1700 Balance 800 3176 340 Weight 113.9 kg 113.9 kg General appearance: PRESENT: no acute distress, cooperative, disheveled, morbidly obese Respiratory exam: PRESENT: clear to auscultation yg, symmetrical, unlabored. ABSENT: accessory muscle use, chest wall tenderness, prolonged expiratory phas, rales, rhonchi, tachypnea, wheezes Cardiovascular exam: PRESENT: RRR, +S1, +S2 Pulses: PRESENT: normal carotid pulses Vascular exam: PRESENT: normal capillary refill GI/Abdominal exam: PRESENT: normal bowel sounds, soft. ABSENT: distended, guarding, rebound, tenderness Extremities exam: PRESENT: tenderness - Right upper extremity near the elbow, +2 edema - Right upper extremity. ABSENT: clubbing, pedal edema Musculoskeletal exam: PRESENT: normal inspection. ABSENT: deformity Neurological exam: PRESENT: alert, awake, oriented to person, oriented to place, oriented to situation Psychiatric exam: PRESENT: appropriate affect, normal mood Skin exam: PRESENT: erythema - Right upper extremity both distal and proximal to the elbow Results Laboratory Results: 12/18/19 05:19 12/18/19 05:19 Impressions: Chest X-Ray 12/17/19 16:09 IMPRESSION: No acute findings in the chest. Assessment and Plan - Diagnosis (1) Cellulitis Qualifiers: Site of cellulitis: extremity Site of cellulitis of extremity: upper extremity Laterality: right Qualified Code(s): L03.113 - Cellulitis of right upper limb Is this a current diagnosis for this admission?: Yes Plan: Currently on broad-spectrum antibiotics. Good results so far. Cultures are pending. Her exam has not changed very much. However, she is also not gotten worse so we will continue the current course until we start to see significant improvement. (2) Lymphedema Is this a current diagnosis for this admission?: Yes Plan: He has chronic lymphedema after her treatment for breast cancer in the right upper extremity (3) Acute kidney injury Is this a current diagnosis for this admission?: Yes Plan: BMP was not checked today. Fluid intake is been good. Urine output has been good. Will check her metabolic panel to make sure we get a downward trend on her creatinine. (4) History of right breast cancer Is this a current diagnosis for this admission?: Yes (5) Hypertension Qualifiers: Hypertension type: essential hypertension Qualified Code(s): I10 - Essential (primary) hypertension Is this a current diagnosis for this admission?: Yes Plan: Well-controlled (6) Morbid obesity with BMI of 40.0-44.9, adult Is this a current diagnosis for this admission?: Yes Plan: Strongly encouraged lifestyle and dietary modification (7) Sepsis Qualifiers: Sepsis type: sepsis due to unspecified organism Severe sepsis acute organ dysfunction type: acute renal failure Acute renal failure type: with acute tubular necrosis Severe sepsis shock status: without septic shock Is this a current diagnosis for this admission?: Yes Plan: Treatment as previously noted - Plan Summary Summary: 12/24/2025 The patient is known to this provider. She had a similar presentation 11 months ago. She responded very well to Zosyn and vancomycin. The right arm is her mastectomy site as she has chronic lymphedema but not the erythema that is present today. She has chronic right arm lymphedema from her mastectomy. She uses a pneumatic compression device at home. I cannot find an open wound on the arm. We will institute vancomycin and Zosyn again as she responded very well to the same regimen last year. The fever and leukocytosis are related to the infection. The serum creatinine is slightly elevated but her GFR is in fact greater than 70. The acute kidney injury should resolve with fluids. We will repeat labs in the morning. With IV fluids her serum creatinine should be normal. With antibiotics her white blood cell count should be lower. Because of the right mastectomy no blood pressures or IVs in the right arm. Patient does have morbid obesity with a BMI of 44.6. Will encourage weight loss. - Time Time Spent with patient: 15-24 minutes
[2019-12-19] MEDS: VANCOMYCIN HCL 1,000 MG in DEXTROSE 5%-WATER 250 ML IV SCH (20:31)
[2019-12-20 05:52] LABS: HEMATOCRIT 26.9 % (36.0-47.0); MEAN CORPUSCULAR HEMOGLOBIN 25.4 pg (27.0-33.4); MEAN CORPUSCULAR HGB CONC 33.4 g/dL (32.0-36.0); MEAN CORPUSCULAR VOLUME 76 fl (80-97); PLATELET COUNT 275 10^3/uL (150-450); RED BLOOD COUNT 3.54 10^6/uL (3.72-5.28); RED CELL DISTRIBUTION WIDTH 14.2 % (11.5-14.0); WHITE BLOOD COUNT 7.9 10^3/uL (4.0-10.5)
[2019-12-20] MEDS: PIPERACILLIN SODIUM/TAZOBACTAM 3.375 GM in NORMAL SALINE 100 ML IV SCH ×4 (06:00→23:17)
[2019-12-20] MEDS: PANTOPRAZOLE SODIUM 20 MG TABLET.DR PO SCH (06:01)
[2019-12-20 06:10] LABS: ANION GAP 6 (5-19); BLOOD UREA NITROGEN 16 mg/dL (7-20); CALCIUM 8.7 mg/dL (8.4-10.2); CARBON DIOXIDE 23 mmol/L (22-30); CHLORIDE 108 mmol/L (98-107); GLUCOSE 110 mg/dL (75-110); POTASSIUM 3.8 mmol/L (3.6-5.0)
[2019-12-20] MEDS: LETROZOLE 2.5 MG TABLET PO SCH (09:36)
[2019-12-20] MEDS: ENOXAPARIN SODIUM INJ 40 MG/0.4 ML DISP.SYRIN SUBCUT SCH (09:36)
[2019-12-20] MEDS: NORMAL SALINE 1000 ML 1,000 ML IV PRN ×2 (11:19→23:17)
--- NOTE | 2019-12-20 15:58 | PDOC PROGRESS REPORT ---
Subjective Progress Note for:: 12/20/19 Subjective:: No adverse events overnight. She says she is got a little bit of a reddish rash on her flank. It does not hurt or burn but it does itch a little bit. She says she feels like the swelling in her arm has gone down. No fevers. Reason For Visit: CELLULITIS, MASTECTOMY SIDE OF BODY, RIGHT ARM, Physical Exam Vital Signs: Temp Pulse Resp BP Pulse Ox 98.7 F 74 16 151/67 H 100 12/20/19 10:55 12/20/19 10:55 12/20/19 10:55 12/20/19 10:55 12/20/19 10:55 Intake & Output 12/19/19 12/20/19 12/21/19 06:59 06:59 06:59 Intake Total 4876 2210 1220 Output Total 1700 1400 Balance 3176 810 1220 Weight 113.9 kg 113.9 kg General appearance: PRESENT: no acute distress, cooperative, disheveled, morbidly obese Respiratory exam: PRESENT: clear to auscultation yg, symmetrical, unlabored. ABSENT: accessory muscle use, chest wall tenderness, prolonged expiratory phas, rales, rhonchi, tachypnea, wheezes Cardiovascular exam: PRESENT: RRR, +S1, +S2 Pulses: PRESENT: normal carotid pulses Vascular exam: PRESENT: normal capillary refill GI/Abdominal exam: PRESENT: normal bowel sounds, soft. ABSENT: distended, guarding, rebound, tenderness Extremities exam: PRESENT: tenderness - Right upper extremity near the elbow, +1 edema - Right upper extremity. ABSENT: clubbing, pedal edema Musculoskeletal exam: PRESENT: normal inspection. ABSENT: deformity Neurological exam: PRESENT: alert, awake, oriented to person, oriented to place, oriented to situation Psychiatric exam: PRESENT: appropriate affect, normal mood Skin exam: PRESENT: erythema - Right upper extremity both distal and proximal to the elbow that is now more patchy and less confluent Results Laboratory Results: 12/20/19 05:05 12/20/19 05:05 12/20/19 12/20/19 05:05 05:05 WBC 7.9 RBC 3.54 L Hgb 9.0 L Hct 26.9 L MCV 76 L MCH 25.4 L MCHC 33.4 RDW 14.2 H Plt Count 275 Sodium 136.8 L Potassium 3.8 Chloride 108 H Carbon Dioxide 23 Anion Gap 6 BUN 16 Creatinine 1.24 Est GFR ( Amer) 54 L Glucose 110 Calcium 8.7 Impressions: Chest X-Ray 12/17/19 16:09 IMPRESSION: No acute findings in the chest. Assessment and Plan - Diagnosis (1) Cellulitis Qualifiers: Site of cellulitis: extremity Site of cellulitis of extremity: upper extremity Laterality: right Qualified Code(s): L03.113 - Cellulitis of right upper limb Is this a current diagnosis for this admission?: Yes Plan: Currently on broad-spectrum antibiotics. Good results so far. Cultures are pending. Her exam has not changed very much. However, she is also not gotten worse so we will continue the current course until we start to see significant improvement. The arm is less swollen and less red, so we will continue her on IV antibiotics for 1 more day (2) Lymphedema Is this a current diagnosis for this admission?: Yes Plan: He has chronic lymphedema after her treatment for breast cancer in the right upper extremity (3) Acute kidney injury Is this a current diagnosis for this admission?: Yes Plan: Resolved (4) History of right breast cancer Is this a current diagnosis for this admission?: Yes (5) Hypertension Qualifiers: Hypertension type: essential hypertension Qualified Code(s): I10 - Essential (primary) hypertension Is this a current diagnosis for this admission?: Yes Plan: Well-controlled (6) Morbid obesity with BMI of 40.0-44.9, adult Is this a current diagnosis for this admission?: Yes Plan: Strongly encouraged lifestyle and dietary modification (7) Sepsis Qualifiers: Sepsis type: sepsis due to unspecified organism Severe sepsis acute organ dysfunction type: acute renal failure Acute renal failure type: with acute tubular necrosis Severe sepsis shock status: without septic shock Is this a current diagnosis for this admission?: Yes Plan: Treatment as previously noted. Now resolved - Plan Summary Summary: 12/24/2025 The patient is known to this provider. She had a similar presentation 11 months ago. She responded very well to Zosyn and vancomycin. The right arm is her mastectomy site as she has chronic lymphedema but not the erythema that is present today. She has chronic right arm lymphedema from her mastectomy. She uses a pneumatic compression device at home. I cannot find an open wound on the arm. We will institute vancomycin and Zosyn again as she responded very well to the same regimen last year. The fever and leukocytosis are related to the infection. The serum creatinine is slightly elevated but her GFR is in fact greater than 70. The acute kidney injury should resolve with fluids. We will repeat labs in the morning. With IV fluids her serum creatinine should be normal. With antibiotics her white blood cell count should be lower. Because of the right mastectomy no blood pressures or IVs in the right arm. Patient does have morbid obesity with a BMI of 44.6. Will encourage weight loss. - Time Time Spent with patient: 15-24 minutes
[2019-12-20] MEDS: VANCOMYCIN HCL 1,000 MG in DEXTROSE 5%-WATER 250 ML IV SCH (20:33)
[2019-12-21 05:50] LABS: HEMATOCRIT 29.1 % (36.0-47.0); HEMOGLOBIN 9.6 g/dL (12.0-15.5); MEAN CORPUSCULAR HGB CONC 32.8 g/dL (32.0-36.0); MEAN CORPUSCULAR VOLUME 76 fl (80-97); PLATELET COUNT 316 10^3/uL (150-450); RED BLOOD COUNT 3.83 10^6/uL (3.72-5.28); RED CELL DISTRIBUTION WIDTH 13.9 % (11.5-14.0); WHITE BLOOD COUNT 9.8 10^3/uL (4.0-10.5)
[2019-12-21] MEDS: PIPERACILLIN SODIUM/TAZOBACTAM 3.375 GM in NORMAL SALINE 100 ML IV SCH ×3 (06:07→17:47)
[2019-12-21] MEDS: PANTOPRAZOLE SODIUM 20 MG TABLET.DR PO SCH (06:08)
[2019-12-21 06:20] LABS: ANION GAP 9 (5-19); BLOOD UREA NITROGEN 18 mg/dL (7-20); CARBON DIOXIDE 22 mmol/L (22-30); CHLORIDE 107 mmol/L (98-107); GLUCOSE 118 mg/dL (75-110); POTASSIUM 4.1 mmol/L (3.6-5.0)
[2019-12-21] MEDS: LETROZOLE 2.5 MG TABLET PO SCH (09:41)
[2019-12-21] MEDS: ENOXAPARIN SODIUM INJ 40 MG/0.4 ML DISP.SYRIN SUBCUT SCH (09:41)
[2019-12-21] MEDS: NORMAL SALINE 1000 ML 1,000 ML IV PRN ×2 (11:13→21:16)
--- NOTE | 2019-12-21 13:10 | PDOC PROGRESS REPORT ---
Subjective Progress Note for:: 12/21/19 Subjective:: No adverse events overnight. No new complaints. Vital signs been stable. No fevers. She says she feels like the swelling is about the same as it was yesterday but she feels like the redness is not quite as bad. She been eating and drinking without difficulty. Reason For Visit: CELLULITIS, MASTECTOMY SIDE OF BODY, RIGHT ARM, Physical Exam Vital Signs: Temp Pulse Resp BP Pulse Ox 98.6 F 66 17 155/77 H 100 12/21/19 11:28 12/21/19 11:28 12/21/19 11:28 12/21/19 11:28 12/21/19 11:28 Intake & Output 12/20/19 12/21/19 12/22/19 06:59 06:59 06:59 Intake Total 2210 4287 1456 Output Total 1400 Balance 810 4287 1456 Weight 113.9 kg 114.3 kg General appearance: PRESENT: no acute distress, cooperative, disheveled, morbidly obese Respiratory exam: PRESENT: clear to auscultation yg, symmetrical, unlabored. ABSENT: accessory muscle use, chest wall tenderness, prolonged expiratory phas, rales, rhonchi, tachypnea, wheezes Cardiovascular exam: PRESENT: RRR, +S1, +S2 Pulses: PRESENT: normal carotid pulses Vascular exam: PRESENT: normal capillary refill GI/Abdominal exam: PRESENT: normal bowel sounds, soft. ABSENT: distended, guarding, rebound, tenderness Extremities exam: PRESENT: tenderness - Right upper extremity near the elbow, +1 edema - Right upper extremity. ABSENT: clubbing, pedal edema Musculoskeletal exam: PRESENT: normal inspection. ABSENT: deformity Neurological exam: PRESENT: alert, awake, oriented to person, oriented to place, oriented to situation Psychiatric exam: PRESENT: appropriate affect, normal mood Skin exam: PRESENT: erythema - Right upper extremity both distal and proximal to the elbow that is now more patchy and less confluent Results Laboratory Results: 12/21/19 05:13 12/21/19 05:13 12/21/19 12/21/19 05:13 05:13 WBC 9.8 RBC 3.83 Hgb 9.6 L Hct 29.1 L MCV 76 L MCH 25.0 L MCHC 32.8 RDW 13.9 Plt Count 316 Sodium 138.4 Potassium 4.1 Chloride 107 Carbon Dioxide 22 Anion Gap 9 BUN 18 Creatinine 1.22 Est GFR ( Amer) 55 L Glucose 118 H Calcium 9.0 Impressions: Chest X-Ray 12/17/19 16:09 IMPRESSION: No acute findings in the chest. Assessment and Plan - Diagnosis (1) Cellulitis Qualifiers: Site of cellulitis: extremity Site of cellulitis of extremity: upper extremity Laterality: right Qualified Code(s): L03.113 - Cellulitis of right upper limb Is this a current diagnosis for this admission?: Yes Plan: She appears to be improving very nicely. I will probably let her have antibiotics through IV for another day and she should be able to go home tomorrow with her condition has not worsened any. (2) Lymphedema Is this a current diagnosis for this admission?: Yes Plan: He has chronic lymphedema after her treatment for breast cancer in the right upper extremity (3) Acute kidney injury Is this a current diagnosis for this admission?: Yes Plan: Resolved (4) History of right breast cancer Is this a current diagnosis for this admission?: Yes (5) Hypertension Qualifiers: Hypertension type: essential hypertension Qualified Code(s): I10 - Essential (primary) hypertension Is this a current diagnosis for this admission?: Yes Plan: Well-controlled (6) Morbid obesity with BMI of 40.0-44.9, adult Is this a current diagnosis for this admission?: Yes Plan: Strongly encouraged lifestyle and dietary modification (7) Sepsis Qualifiers: Sepsis type: sepsis due to unspecified organism Severe sepsis acute organ dysfunction type: acute renal failure Acute renal failure type: with acute tubular necrosis Severe sepsis shock status: without septic shock Is this a current diagnosis for this admission?: Yes - Plan Summary Summary: 12/24/2025 The patient is known to this provider. She had a similar presentation 11 months ago. She responded very well to Zosyn and vancomycin. The right arm is her mastectomy site as she has chronic lymphedema but not the erythema that is present today. She has chronic right arm lymphedema from her mastectomy. She uses a pneumatic compression device at home. I cannot find an open wound on the arm. We will institute vancomycin and Zosyn again as she responded very well to the same regimen last year. The fever and leukocytosis are related to the infection. The serum creatinine is slightly elevated but her GFR is in fact greater than 70. The acute kidney injury should resolve with fluids. We will repeat labs in the morning. With IV fluids her serum creatinine should be normal. With antibiotics her white blood cell count should be lower. Because of the right mastectomy no blood pressures or IVs in the right arm. Patient does have morbid obesity with a BMI of 44.6. Will encourage weight loss. - Time Time Spent with patient: 15-24 minutes
[2019-12-21 19:34] LABS: VANCOMYCIN,TROUGH 5.9 ug/mL (5.0-20.0)
[2019-12-21] MEDS: VANCOMYCIN HCL 1,000 MG in DEXTROSE 5%-WATER 250 ML IV SCH (21:16)
[2019-12-22] MEDS: PIPERACILLIN SODIUM/TAZOBACTAM 3.375 GM in NORMAL SALINE 100 ML IV SCH ×2 (00:02→05:39)
[2019-12-22 05:18] LABS: HEMATOCRIT 30.2 % (36.0-47.0); HEMOGLOBIN 9.9 g/dL (12.0-15.5); MEAN CORPUSCULAR HEMOGLOBIN 25.2 pg (27.0-33.4); MEAN CORPUSCULAR HGB CONC 32.8 g/dL (32.0-36.0); MEAN CORPUSCULAR VOLUME 77 fl (80-97); PLATELET COUNT 360 10^3/uL (150-450); RED BLOOD COUNT 3.92 10^6/uL (3.72-5.28); RED CELL DISTRIBUTION WIDTH 14.4 % (11.5-14.0); WHITE BLOOD COUNT 10.8 10^3/uL (4.0-10.5)
[2019-12-22] MEDS: PANTOPRAZOLE SODIUM 20 MG TABLET.DR PO SCH (05:39)
[2019-12-22 05:42] LABS: ANION GAP 5 (5-19); BLOOD UREA NITROGEN 15 mg/dL (7-20); CALCIUM 9.1 mg/dL (8.4-10.2); CARBON DIOXIDE 26 mmol/L (22-30); CHLORIDE 108 mmol/L (98-107); GLUCOSE 105 mg/dL (75-110); POTASSIUM 4.2 mmol/L (3.6-5.0)
[2019-12-22] MEDS: ENOXAPARIN SODIUM INJ 40 MG/0.4 ML DISP.SYRIN SUBCUT SCH (09:50)
[2019-12-22] MEDS: LETROZOLE 2.5 MG TABLET PO SCH (09:50)
[2019-12-22] MEDS ORDERED: VANCOMYCIN HCL 1,000 MG in DEXTROSE 5%-WATER 250 ML IV SCH (10:00)
[2019-12-22 11:11] VITALS: BP 148/72
--- NOTE | 2019-12-22 16:08 | PDOC DISCHARGE SUMMARY ---
Impression - Admit/DC Date/PCP Admission Date/Primary Care Provider: 12/17/19 18:36 MICHELLE RESTREPO MD Discharge Date: 12/22/19 - Discharge Diagnosis (1) Cellulitis Is this a current diagnosis for this admission?: Yes (2) Lymphedema Is this a current diagnosis for this admission?: Yes (3) Acute kidney injury Is this a current diagnosis for this admission?: Yes (4) History of right breast cancer Is this a current diagnosis for this admission?: Yes (5) Hypertension Is this a current diagnosis for this admission?: Yes (6) Morbid obesity with BMI of 40.0-44.9, adult Is this a current diagnosis for this admission?: Yes (7) Sepsis Is this a current diagnosis for this admission?: Yes - Assessment Summary: 12/24/2025 The patient is known to this provider. She had a similar presentation 11 months ago. She responded very well to Zosyn and vancomycin. The right arm is her mastectomy site as she has chronic lymphedema but not the erythema that is present today. She has chronic right arm lymphedema from her mastectomy. She uses a pneumatic compression device at home. I cannot find an open wound on the arm. We will institute vancomycin and Zosyn again as she responded very well to the same regimen last year. The fever and leukocytosis are related to the infection. The serum creatinine is slightly elevated but her GFR is in fact greater than 70. The acute kidney injury should resolve with fluids. We will repeat labs in the morning. With IV fluids her serum creatinine should be normal. With antibiotics her white blood cell count should be lower. Because of the right mastectomy no blood pressures or IVs in the right arm. Patient does have morbid obesity with a BMI of 44.6. Will encourage weight l oss. - Additional Information Resuscitation Status: Do Not Intubate Discharge Diet: Cardiac Discharge Activity: Activity As Tolerated Referrals: [facility] [Provider Group] (1 week) RHIANNON SCHMIDT MD [ACTIVE STAFF] - 01/08/20 (pt has an appt on january 07) Prescriptions: Sulfamethoxazole/Trimethoprim [Bactrim Ds Tablet] 1 each PO BID 7 Days #14 tablet Home Medications: Letrozole [Femara 2.5 mg Tablet] 2.5 mg PO DAILY 06/18/18 Sulfamethoxazole/Trimethoprim [Bactrim Ds Tablet] 1 each PO BID 7 Days #14 tablet 12/22/19 History of Present Illiness History of Present Illness: CHAD MYERS is a 59 year old female with a history of breast cancer status post mastectomy and hypertension. I admitted her to the hospital in December 2018 with a similar presentation. She did have a right mastectomy in the past. She reports that she is no longer in hypertensive medication. She states that she was in her usual state of health and within the last 24 to 48 hours she had increased swelling of the upper extremities similar to last year's episode. She felt feverish. With the rapid progression and the similarity to last year's episode she presented to the emergency department. On exam she has marked edema from approximately the distal forearm through the right shoulder encompassing erythema across the right chest right scapular area. She had a low-grade temperature and her white blood cell count was 21,000. Serum creatinine was minimally elevated. She was not hypoxic. She is not experiencing significant pain. When I admitted her last year she responded very well to vancomycin and Zosyn. We have started the same. In addition she was given IV fluids. We will continue her letrozole and there is a as needed antihypertensives available if she needs it. Despite the slightly elevated creatinine her GFR is greater than 70. Hospital Course Hospital Course: She responded very well to IV fluids and her creatinine corrected after couple of days of treatment. She was kept on IV antibiotics for several days to make sure that the erythema and the swelling would go down substantially. She is received 5 days of IV antibiotics in the hospital. The plan is to switch her over to another week of oral Bactrim. All of her cultures came back negative. She will have follow-up with [facility] within 1 week. Her labs and examination were reassuring and she was discharged in stable condition. Physical Exam Vital Signs: Temp Pulse Resp BP Pulse Ox 98.3 F 81 16 148/72 H 100 12/22/19 11:07 12/22/19 11:07 12/22/19 11:07 12/22/19 11:07 12/22/19 11:07 Intake & Output 12/21/19 12/22/19 12/23/19 06:59 06:59 06:59 Intake Total 4287 3133 2206 Balance 4287 3133 2206 Weight 114.3 kg 120.1 kg General appearance: PRESENT: no acute distress, cooperative, disheveled, morbidly obese Respiratory exam: PRESENT: clear to auscultation yg, symmetrical, unlabored. ABSENT: accessory muscle use, chest wall tenderness, prolonged expiratory phas, rales, rhonchi, tachypnea, wheezes Cardiovascular exam: PRESENT: RRR, +S1, +S2 Pulses: PRESENT: normal carotid pulses Vascular exam: PRESENT: normal capillary refill GI/Abdominal exam: PRESENT: normal bowel sounds, soft. ABSENT: distended, guarding, rebound, tenderness Extremities exam: PRESENT: Trace edema - Right upper extremity. ABSENT: clubbing, pedal edema Musculoskeletal exam: PRESENT: normal inspection. ABSENT: deformity Neurological exam: PRESENT: alert, awake, oriented to person, oriented to place, oriented to situation Psychiatric exam: PRESENT: appropriate affect, normal mood Skin exam: PRESENT: erythema - Right upper extremity both distal and proximal to the elbow that is now essentially resolved Results Laboratory Results: WBC 10.8 10^3/uL (4.0-10.5) H 12/22/19 04:29 RBC 3.92 10^6/uL (3.72-5.28) 12/22/19 04:29 Hgb 9.9 g/dL (12.0-15.5) L 12/22/19 04:29 Hct 30.2 % (36.0-47.0) L 12/22/19 04:29 MCV 77 fl (80-97) L 12/22/19 04:29 MCH 25.2 pg (27.0-33.4) L 12/22/19 04:29 MCHC 32.8 g/dL (32.0-36.0) 12/22/19 04:29 RDW 14.4 % (11.5-14.0) H 12/22/19 04:29 Plt Count 360 10^3/uL (150-450) 12/22/19 04:29 Lymph % (Auto) 7.1 % (13-45) L 12/18/19 05:19 Ellis % (Auto) 3.3 % (3-13) 12/18/19 05:19 Eos % (Auto) 0.0 % (0-6) 12/18/19 05:19 Baso % (Auto) 0.4 % (0-2) 12/18/19 05:19 Absolute Neuts (auto) 14.7 10^3/uL (1.7-8.2) H 12/18/19 05:19 Absolute Lymphs (auto) 1.2 10^3/uL (0.5-4.7) 12/18/19 05:19 Absolute Monos (auto) 0.5 10^3/uL (0.1-1.4) 12/18/19 05:19 Absolute Eos (auto) 0.0 10^3/uL (0.0-0.6) 12/18/19 05:19 Absolute Basos (auto) 0.1 10^3/uL (0.0-0.2) 12/18/19 05:19 Total Counted 100 12/17/19 16:49 Seg Neutrophils % 89.2 % (42-78) H 12/18/19 05:19 Seg Neuts % (Manual) 88 % (42-78) H 12/17/19 16:49 Band Neutrophils % 5 % (3-5) 12/17/19 16:49 Lymphocytes % (Manual) 5 % (13-45) L 12/17/19 16:49 Monocytes % (Manual) 2 % (3-13) L 12/17/19 16:49 Eosinophils % (Manual) 0 % (0-6) 12/17/19 16:49 Basophils % (Manual) 0 % (0-2) 12/17/19 16:49 Abs Neuts (Manual) 20.4 10^3/uL (1.7-8.2) H 12/17/19 16:49 Abs Lymphs (Manual) 1.1 10^3/uL (0.5-4.7) 12/17/19 16:49 Abs Monocytes (Manual) 0.4 10^3/uL (0.1-1.4) 12/17/19 16:49 Absolute Eos (Manual) 0.0 10^3/uL (0.0-0.6) 12/17/19 16:49 Abs Basophils (Manual) 0.0 10^3/uL (0.0-0.2) 12/17/19 16:49 Toxic Vacuolation PRESENT 12/17/19 16:49 Platelet Comment ADEQUATE 12/17/19 16:49 Anisocytosis SLIGHT 12/17/19 16:49 Microcytosis SLIGHT 12/17/19 16:49 Sodium 138.7 mmol/L (137-145) 12/22/19 04:29 Potassium 4.2 mmol/L (3.6-5.0) 12/22/19 04:29 Chloride 108 mmol/L (98-107) H 12/22/19 04:29 Carbon Dioxide 26 mmol/L (22-30) 12/22/19 04:29 Anion Gap 5 (5-19) 12/22/19 04:29 BUN 15 mg/dL (7-20) 12/22/19 04:29 Creatinine 1.20 mg/dL (0.52-1.25) 12/22/19 04:29 Est GFR ( Amer) 56 (>60) L 12/22/19 04:29 Est GFR (MDRD) Non-Af 46 (>60) L 12/22/19 04:29 Glucose 105 mg/dL (75-110) 12/22/19 04:29 Calcium 9.1 mg/dL (8.4-10.2) 12/22/19 04:29 Magnesium 1.7 mg/dL (1.6-2.3) 12/18/19 05:19 Total Bilirubin 1.3 mg/dL (0.2-1.3) 12/17/19 16:49 Direct Bilirubin 0.1 mg/dL (0.0-0.4) 12/17/19 16:49 Neonat Total Bilirubin Not Reportable 12/17/19 16:49 Neonat Direct Bilirubin Not Reportable 12/17/19 16:49 Neonat Indirect Bili Not Reportable 12/17/19 16:49 AST 32 U/L (14-36) 12/17/19 16:49 ALT 16 U/L (<35) 12/17/19 16:49 Alkaline Phosphatase 84 U/L (38-126) 12/17/19 16:49 Total Protein 7.6 g/dL (6.3-8.2) 12/17/19 16:49 Albumin 3.6 g/dL (3.5-5.0) 12/17/19 16:49 Urine Color YELLOW 12/17/19 21:45 Urine Appearance SLIGHTLY-CLOUDY 12/17/19 21:45 Urine pH 5.0 (5.0-9.0) 12/17/19 21:45 Ur Specific [place] 1.017 12/17/19 21:45 Urine Protein 30 mg/dL (NEGATIVE) H 12/17/19 21:45 Urine Glucose (UA) NEGATIVE mg/dL (NEGATIVE) 12/17/19 21:45 Urine Ketones NEGATIVE mg/dL (NEGATIVE) 12/17/19 21:45 Urine Blood LARGE (NEGATIVE) H 12/17/19 21:45 Urine Nitrite NEGATIVE (NEGATIVE) 12/17/19 21:45 Urine Bilirubin NEGATIVE (NEGATIVE) 12/17/19 21:45 Urine Urobilinogen NEGATIVE mg/dL (<2.0) 12/17/19 21:45 Ur Leukocyte Esterase LARGE (NEGATIVE) H 12/17/19 21:45 Urine WBC (Auto) 85 /HPF 12/17/19 21:45 Urine RBC (Auto) 17 /HPF 12/17/19 21:45 Urine Bacteria (Auto) TRACE /HPF 12/17/19 21:45 Squamous Epi Cells Auto 1 /HPF 12/17/19 21:45 Urine Mucus (Auto) FEW /LPF 12/17/19 21:45 Urine Ascorbic Acid NEGATIVE (NEGATIVE) 12/17/19 21:45 Time Trough Drawn 1858 12/21/19 18:58 Vancomycin Trough 5.9 ug/mL (5.0-20.0) 12/21/19 18:58 Impressions: Chest X-Ray 12/17/19 16:09 IMPRESSION: No acute findings in the chest. Plan Time Spent: Greater than 30 Minutes Stroke Is this a Stroke Patient?: No Acute Heart Failure - Is this a Heart Failure Patient?: No
== END 2019-12-22 11:55 | disposition home or self-care (01) | DRG 871 ==
LOC: ER 14:38 → EH 18:36 → 4N 20:27
PROVIDERS: ADMIT Hospitalist; ATTEND Family Medicine
DX: A41.9 Sepsis, unspecified organism (principal); N17.0 Acute kidney failure with tubular necrosis; L03.113 Cellulitis of right upper limb; Z68.41 Body mass index [BMI] 40.0-44.9, adult; R65.20 Severe sepsis without septic shock; I10 Essential (primary) hypertension; E66.01 Morbid (severe) obesity due to excess calories; Z60.2 Problems related to living alone; I89.0 Lymphedema, not elsewhere classified; Z66 Do not resuscitate; Z85.3 Personal history of malignant neoplasm of breast; Z90.11 Acquired absence of right breast and nipple; Z82.49 Family history of ischemic heart disease and other diseases of the circulatory system; Z80.9 Family history of malignant neoplasm, unspecified
CPT/HCPCS: 36415; 71045; 80048; 80053; 80202; 81001; 82565; 83735; 85025; 85027; 87040; 93005; 93010; 99285; J1650; J2543; J3370; J3490; J7030; J7050; J7060

== ENCOUNTER → 2020-06-30 | Outpatient (CLI) | payer MEDICAID, MEDICARE ==
--- NOTE | 2020-06-30 08:39 | WOMENS IMAGING REPORT ---
EXAM DESCRIPTION: BONE DENSITY HIP/SPINE IMAGES COMPLETED DATE/TIME: 06/30/2020 8:27 am REASON FOR STUDY: Z78.0 ASYMPTOMATIC MENOPAUSAL STATE Z79.811 [facility] (CURRENT) USE OF AROMATASE INHIBITORS Z13.820 ENCOUNTER FOR SCREENING FOR OSTEOPOROSIS Z12.31 ENCNTR SCREEN MAMMOGRAM FOR BUSHRA GNANT NEOPLASM OF ALPESH COMPARISON: 05/08/2018. TECHNIQUE: Dual-Energy X-ray Absorptiometry (DEXA) of the AP Spine and Hip. LIMITATIONS: None. FINDINGS: LUMBAR SPINE: The bone mineral density (BMD) measured from L1-L4 in the AP projection correlates with a T-score of -2.7, which is osteoporosis as defined by the World Health Organization. BMD Change vs Baseline: 8.5% decrease. HIP: The bone mineral density (BMD) measured in the left femoral neck correlates with a T-score of -1.4, w hich is osteopenia as defined by the World Health Organization. BMD Change vs Baseline: 2.1% decrease. 10 year Fracture Risk Assessment: Major Osteoporotic Fracture: None reported because the T-score of the lumbar spine is at or below -2 .5. Hip Fracture: None reported because the T-score of the lumbar spine is at or below -2.5. IMPRESSION: 1. LUMBAR SPINE WHO CLASSIFICATION: OSTEOPOROSIS. 2. HIP WHO CLASSIFICATION: OSTEOPENIA. OVERALL ASSESSMENT: WHO CLASSIFICATION: OSTEOPOROSIS. COMMENT: The World Health Organization defines low BMD as follows: T-score: Normal: At or above -1.0 Osteopenia: Between -1.0 and -2.5 Osteoporosis: At or below -2.5 without fractures Established osteoporosis: At or below -2.5 with fractures In general, you may wish to consider: Diagnosis Treatment Follow-up DEXA Normal BMD Prevention 2-3 years Osteopenia Prevention/Therapy 1-2 years Osteoporosis Therapy Yearly TECHNICAL DOCUMENTATION: JOB ID: [id number] 2010 [employer]- All Rights Reserved Reading location - IP/workstation name: [email or web address]
--- NOTE | 2020-06-30 10:11 | WOMENS IMAGING REPORT ---
EXAM DESCRIPTION: 3D SCREENING MAMMO LEFT IMAGES COMPLETED DATE/TIME: 06/30/2020 8:27 am REASON FOR STUDY: Z12.31 ENCNTR SCREEN MAMMOGRAM FOR MALIGNANT NEOPLASM OF BREAST Z79.811 [facility] (CURRENT) USE OF AROMATASE INHIBITORS Z13.820 ENCOUNTER FOR SCREENING FOR OSTEOPOROSIS Z12.31 ENCN TR SCREEN MAMMOGRAM FOR MALIGNANT NEOPLASM OF ALPESH COMPARISON: 06/12/2018, 06/25/2019 EXAM PARAMETERS: Standard craniocaudal and mediolateral oblique views of the breast recorded using digital acquisition and breast tomosynthesis. Read with the assistance of CAD. [facility] [employer] [facility] Screen Operator Version 9.2 LIMITATIONS: None. FINDINGS: BREAST: left Findings present which are benign by mammographic criteria. No suspicious masses, calcifications or a rchitectural distortion. Pertinent benign findings: Circumscribed nodular densities and benign-morphology calcifications appea r unchanged. Benign mammographic findings may include one or more of the following: Smooth masses, popcorn/rim/co arse calcifications, asymmetries, post-procedure changes, and lesions with long-standing stability. IMPRESSION: BENIGN FINDINGS. BIRADS 2. BREAST DENSITY: b. There are scattered areas of fibroglandular density. BIRAD: ASSESSMENT: 2 Benign Finding(s) RECOMMENDATION: RECOMMENDATION: ROUTINE SCREENING. COMMENT: The patient has been notified of the results by letter per [place] requirements. Additional no tification policies are in place for contacting patient with suspicious or incomplete findings. Quality ID #[id number]: The [employer] recommends an annual screening mammogram for women aged 40 years or over. This facility utilizes a reminder system to ensure that all patients receive reminder letters, and/or direct phone calls for appointments. This includes reminders for routine scr eening mammograms, diagnostic mammograms, or other Breast Imaging Interventions when appropriate. Th is patient will be placed in the appropriate reminder system. TECHNICAL DOCUMENTATION: FINDING NUMBER: (1) ASSESSMENT: (1) JOB ID: [id number] 2010 [employer]- All Rights Reserved Reading location - IP/workstation name: [email or web address]
== END ==
LOC: WI 07:58
PROVIDERS: ATTEND Internal Medicine Hematology & Oncology
DX: Z12.31 Encounter for screening mammogram for malignant neoplasm of breast (principal); M81.0 Age-related osteoporosis without current pathological fracture; Z13.820 Encounter for screening for osteoporosis; Z78.0 Asymptomatic menopausal state; Z79.811 Long term (current) use of aromatase inhibitors
CPT/HCPCS: 77080